=== PATIENT | female | born 1990 | race Caucasian/White ===

== ENCOUNTER → 2017-02-19 | Outpatient (CLI) | payer OTHER ==
[2017-02-19 12:13] LABS: ALT 456 U/L (9-52); AST 337 U/L (14-36)
[2017-02-19 16:22] LABS: Hepatitis B Surface Antibody Non-Reactive (Non-Reactive)
== END | disposition home or self-care (01) ==
LOC: LABWHC1 10:41
PROVIDERS: ATTEND Internal Medicine Infectious Disease
DX: B18.2 Chronic viral hepatitis C (principal)
CPT/HCPCS: 36415; 84450; 84460; 86706; 86708; 87340

== ENCOUNTER → 2017-05-21 | Outpatient (CLI) | payer OTHER ==
[2017-05-21 15:55] LABS: ALT 245 U/L (9-52); AST 200 U/L (14-36); Albumin 4.1 g/dL (3.5-5.0); Alkaline Phosphatase 123 U/L (38-126); Anion Gap 10 mmol/L; Blood Urea Nitrogen 10 mg/dL (7-17); Calcium 9.4 mg/dL (8.4-10.2); Carbon Dioxide 27 mmol/L (22-30); Chloride 105 mmol/L (98-107); Glucose 99 mg/dL (74-99); Potassium 4.1 mmol/L (3.5-5.1); Sodium 142 mmol/L (137-145); Total Bilirubin 0.6 mg/dL (0.2-1.3); Total Protein 7.1 g/dL (6.3-8.2)
== END | disposition home or self-care (01) ==
LOC: LABWHC1 15:20
PROVIDERS: ATTEND Internal Medicine Infectious Disease
DX: B18.2 Chronic viral hepatitis C (principal)
CPT/HCPCS: 36415; 80053

== ENCOUNTER → 2020-05-03 | Outpatient (CLI) | payer OTHER ==
[2020-05-03 18:31] LABS: African American GFR (CKD) 113.9 (60.0-200.0); Albumin 5.4 g/dL (3.80-4.90); Albumin/Globulin Ratio 2.08 (1.60-3.17); Anion Gap 10.9 mmol/L (4.00-12.00); BUN/Creat Ratio 22.5 Ratio (12.00-20.00); Calcium 10.3 mg/dL (8.7-10.3); Carbon Dioxide 26.1 mmol/L (21.6-31.8); Globulin 2.6 g/dL (1.6-3.3); Non-African American GFR(CKD) 98.2 (60.0-200.0); Potassium 5.3 mmol/L (3.5-5.5); Total Bilirubin 0.4 mg/dL (0.3-1.2)
== END | disposition home or self-care (01) ==
LOC: LABWHC1 09:24
PROVIDERS: ATTEND Family Medicine
DX: F11.20 Opioid dependence, uncomplicated (principal)
CPT/HCPCS: 36415; 80053

== ENCOUNTER 2022-01-19 11:21 | Inpatient (IN) | payer OTHER ==
--- NOTE | 2022-01-19 13:57 | XR ---
EXAMINATION TYPE: XR chest 2V DATE OF EXAM: 01/19/2022 1:49 PM COMPARISON: None TECHNIQUE: XR chest 2V Frontal and lateral views of the chest. CLINICAL INDICATION:Female, 31 years old with history of chest pain/sob; FINDINGS: Lungs/Pleura: There is no evidence of pleural effusion, focal consolidation, or pneumothorax. Pulmonary vascularity: Unremarkable. Heart/mediastinum: Cardiomediastinal silhouette is moderately enlarged. Postsurgical changes with va lvular prosthesis. Musculoskeletal: No acute osseous pathology. IMPRESSION: 1. No acute cardiopulmonary disease/process. 2. Moderate cardiomegaly.
--- NOTE | 2022-01-19 14:58 | ED ---
General Adult HPI - General Chief complaint: Chest Pain Stated complaint: SOB Time Seen by Provider: 01/19/22 14:35 Source: patient, police, RN notes reviewed, old records reviewed Mode of arrival: wheelchair Limitations: no limitations - History of Present Illness Initial comments: This is a 31-year-old female presents emergency room with a past medical history significant for heroin abuse and mitral valve surgery. Patient states she hasn't had any drugs for months because she's been in assisted. Patient states she got covert at the end of November and since then she has had shortness of breath. Patient also claims right-sided chest pain. Patient also was told that her skin looked a little yellowish she does have a history of hepatitis C so they sent to the emergency department. Patient denies any fever chills or cough. Patient denies any abdominal pain. Patient denies any vomiting or diarrhea. Patient denies any recent injury or trauma. Patient denies dysuria hematuria urinary frequency. Patient denies any swelling to the legs or calf tenderness - Related Data Home Medications Medication Instructions Recorded Confirmed Albuterol Nebulized [Ventolin 2.5 mg INHALATION RT-BID 01/19/22 01/19/22 Nebulized] Aspirin EC [Ecotrin Low Dose] 81 mg PO DAILY 01/19/22 01/19/22 Ensure 1 can PO DAILY 01/19/22 01/19/22 Ferrous Sulfate [Feosol] 325 mg PO HS 01/19/22 01/19/22 Metoprolol Tartrate [Lopressor] 12.5 mg PO BID 01/19/22 01/19/22 Multivit/Iron Sulf/Folic Acid 1 tab PO DAILY 01/19/22 01/19/22 [Multivitamin with Iron] Omeprazole 20 mg PO DAILY 01/19/22 01/19/22 hydroCHLOROthiazide [Hydrodiuril] 25 mg PO DAILY 01/19/22 01/19/22 Allergies Allergy/AdvReac Type Severity Reaction Status Date / Time metoprolol [From Lopressor] AdvReac "Doesn't Verified 01/19/22 17:17 feel well" Review of Systems ROS Statement: Those systems with pertinent positive or pertinent negative responses have been documented in the HPI. ROS Other: All systems not noted in ROS Statement are negative. Past Medical History Past Medical History: No Reported History Additional Past Medical History / Comment(s): Hep C, endocarditis History of Any Multi-Drug Resistant Organisms: None Reported Past Surgical History: Orthopedic Surgery Additional Past Surgical History / Comment(s): Mitral valve replaced 2019, Right hip sx r/t to MRSA Past Psychological History: No Psychological Hx Reported Smoking Status: Current every day smoker Past Alcohol Use History: None Reported Past Drug Use History: Heroin General Exam - General Exam Comments Initial Comments: GENERAL: Patient is well-developed and well-nourished. Patient is nontoxic and well- hydrated and is in mild distress. ENT: Neck is soft and supple. No significant lymphadenopathy is noted. Oropharynx is clear. Moist mucous membranes. Neck has full range of motion without eliciting any pain. EYES: The sclera were anicteric and conjunctiva were pink and moist. Extraocular movements were intact and pupils were equal round and reactive to light. Eyelids were unremarkable. PULMONARY: Unlabored respirations. Good breath sounds bilaterally. No audible rales rhonchi or wheezing was noted. CARDIOVASCULAR: There is a regular rate and rhythm without any murmurs gallops or rubs. ABDOMEN: Soft and nontender with normal bowel sounds. SKIN: Skin is clear with no lesions or rashes and otherwise unremarkable. NEUROLOGIC: Patient is alert and oriented x3. Cranial nerves II through XII are grossly intact. Motor and sensory are also intact. Normal speech, volume and content. Symmetrical smile. MUSCULOSKELETAL: Normal extremities with adequate strength and full range of motion. LYMPHATICS: No significant lymphadenopathy is noted PSYCHIATRIC: Normal psychiatric evaluation. Limitations: no limitations Course Vital Signs 01/19/22 01/19/22 01/19/22 11:51 14:54 17:01 Temperature 98.1 F Pulse Rate 106 H 101 H 98 Respiratory 18 16 16 Rate Blood Pressure 104/75 129/86 108/91 O2 Sat by Pulse 100 100 100 Oximetry 01/19/22 01/19/22 19:00 19:52 Temperature Pulse Rate 72 107 H Respiratory 16 20 Rate Blood Pressure 109/53 141/102 O2 Sat by Pulse 98 92 L Oximetry Procedures - Sepsis Sepsis Focused Exam #1 Time Sepsis Criteria Met: 20:20 Sepsis Focused Exam Date: 01/19/22 Sepsis Focused Exam Time: 20:55 Sepsis Focused Exam Complete: Yes Vital Signs & RN Notes Reviewed: Yes Capillary Refill: < 2 Seconds: Fingers Peripheral Pulses: Normal: Radial (R) Skin Color: Normal for Patient Respiratory Exam: normal lung sounds Cardiovascular Exam: regular rate (96 beats a minute) Medical Decision Making - Medical Decision Making EKG shows sinus tachycardia at 104 bpm MA interval 141 QRSs 85 QT interval 355 QTC is 4:15. Patient's EKG shows no ST segment elevation or depression. Chest x-ray showed a cardiomegaly. Patient had an elevated d-dimer so I decided to a CT angiogram and that showed a large probable empyema in the left lung. I started the patient on Zosyn and vancomycin. I spoke with Dr. Pineda he agreed to admit the patient admitted the patient wrote admitting orders continued antibiotics I consulted pulmonary and ID After patient was admitted before lactic acid come back and it is now elevated it was 8:20 PM when the results were recognized. Lactic acid was not originally ordered because infection was not expected. I consider the patient's septic I started a bolus of fluid antibiotic and oriented and started. Both liters of fluid started on patient. After the sclera isn't begun I went in and today with the patient did a focused physical exam - Lab Data Result diagrams: 01/19/22 15:57 01/19/22 15:16 Lab Results 01/19/22 01/19/22 01/19/22 Range/Units 15:16 15:16 15:57 WBC 11.4 H (3.8-10.6) k/uL RBC 5.02 (3.80-5.40) m/uL Hgb 12.9 (11.4-16.0) gm/dL Hct 41.3 (34.0-46.0) % MCV 82.3 (80.0-100.0) fL MCH 25.7 (25.0-35.0) pg MCHC 31.3 (31.0-37.0) g/dL RDW 17.4 H (11.5-15.5) % Plt Count 291 (150-450) k/uL MPV 9.3 Neutrophils % 58 % Lymphocytes % 29 % Monocytes % 9 % Eosinophils % 0 % Basophils % 1 % Neutrophils # 6.6 (1.3-7.7) k/uL Lymphocytes # 3.3 (1.0-4.8) k/uL Monocytes # 1.1 H (0-1.0) k/uL Eosinophils # 0.0 (0-0.7) k/uL Basophils # 0.1 (0-0.2) k/uL Hypochromasia Marked Poikilocytosis Slight Anisocytosis Slight PT (9.0-12.0) sec INR (<1.2) D-Dimer (<0.60) mg/L FEU Sodium 131 L (137-145) mmol/L Potassium 5.1 (3.5-5.1) mmol/L Chloride 92 L (98-107) mmol/L Carbon Dioxide 16 L (22-30) mmol/L Anion Gap 23 mmol/L BUN 19 H (7-17) mg/dL Creatinine 0.63 (0.52-1.04) mg/dL Est GFR (CKD-EPI)AfAm >90 (>60 ml/min/1.73 sqM) Est GFR (CKD-EPI)NonAf >90 (>60 ml/min/1.73 sqM) Glucose 83 (74-99) mg/dL Calcium 9.2 (8.4-10.2) mg/dL Magnesium 2.1 (1.6-2.3) mg/dL Total Bilirubin 3.0 H (0.2-1.3) mg/dL AST 360 H (14-36) U/L ALT 183 H (4-34) U/L Alkaline Phosphatase 105 (38-126) U/L Troponin I <0.012 (0.000-0.034) ng/mL Total Protein 7.8 (6.3-8.2) g/dL Albumin 4.2 (3.5-5.0) g/dL 01/19/22 Range/Units 17:00 WBC (3.8-10.6) k/uL RBC (3.80-5.40) m/uL Hgb (11.4-16.0) gm/dL Hct (34.0-46.0) % MCV (80.0-100.0) fL MCH (25.0-35.0) pg MCHC (31.0-37.0) g/dL RDW (11.5-15.5) % Plt Count (150-450) k/uL MPV Neutrophils % % Lymphocytes % % Monocytes % % Eosinophils % % Basophils % % Neutrophils # (1.3-7.7) k/uL Lymphocytes # (1.0-4.8) k/uL Monocytes # (0-1.0) k/uL Eosinophils # (0-0.7) k/uL Basophils # (0-0.2) k/uL Hypochromasia Poikilocytosis Anisocytosis PT 17.0 H (9.0-12.0) sec INR 1.7 H (<1.2) D-Dimer 8.16 H (<0.60) mg/L FEU Sodium (137-145) mmol/L Potassium (3.5-5.1) mmol/L Chloride (98-107) mmol/L Carbon Dioxide (22-30) mmol/L Anion Gap mmol/L BUN (7-17) mg/dL Creatinine (0.52-1.04) mg/dL Est GFR (CKD-EPI)AfAm (>60 ml/min/1.73 sqM) Est GFR (CKD-EPI)NonAf (>60 ml/min/1.73 sqM) Glucose (74-99) mg/dL Calcium (8.4-10.2) mg/dL Magnesium (1.6-2.3) mg/dL Total Bilirubin (0.2-1.3) mg/dL AST (14-36) U/L ALT (4-34) U/L Alkaline Phosphatase (38-126) U/L Troponin I (0.000-0.034) ng/mL Total Protein (6.3-8.2) g/dL Albumin (3.5-5.0) g/dL Critical Care Time Critical Care Time: Yes Total Critical Care Time: 35 Disposition Clinical Impression: Empyema, Sepsis Disposition: ADMITTED IP TO THIS HOSP Time of Disposition: 18:58
[2022-01-19 15:55] LABS: African American GFR (CKD) >90 (>60 ml/min/1.73 sqM); Anion Gap 23 mmol/L; Blood Urea Nitrogen 19 mg/dL (7-17); Calcium 9.2 mg/dL (8.4-10.2); Carbon Dioxide 16 mmol/L (22-30); Chloride 92 mmol/L (98-107); Glucose 83 mg/dL (74-99); Non-African American GFR(CKD) >90 (>60 ml/min/1.73 sqM); Sodium 131 mmol/L (137-145)
[2022-01-19 16:27] LABS: Anisocytosis Slight; Basophils # (A) 0.1 k/uL (0-0.2); Basophils % (A) 1 %; Eosinophils % (A) 0 %; HCT 41.3 % (34.0-46.0); HGB 12.9 gm/dL (11.4-16.0); Hypochromasia Marked; Lymphocytes # (A) 3.3 k/uL (1.0-4.8); Lymphocytes % (A) 29 %; MCH 25.7 pg (25.0-35.0); MCHC 31.3 g/dL (31.0-37.0); MCV 82.3 fL (80.0-100.0); Mean Platelet Volume 9.3; Monocytes # (A) 1.1 k/uL (0-1.0); Monocytes % (A) 9 %; Neutrophils # (A) 6.6 k/uL (1.3-7.7); Neutrophils % (A) 58 %; Platelet Count 291 k/uL (150-450); Poikilocytosis Slight; RBC 5.02 m/uL (3.80-5.40); RDW 17.4 % (11.5-15.5); WBC 11.4 k/uL (3.8-10.6)
[2022-01-19 16:56] LABS: AST 360 U/L (14-36); Albumin 4.2 g/dL (3.5-5.0); Alkaline Phosphatase 105 U/L (38-126); Magnesium 2.1 mg/dL (1.6-2.3); Potassium 5.1 mmol/L (3.5-5.1); Total Protein 7.8 g/dL (6.3-8.2)
[2022-01-19 17:26] LABS: INR 1.7 (<1.2)
[2022-01-19 17:44] LABS: ALT 183 U/L (4-34)
--- NOTE | 2022-01-19 18:40 | CT ---
EXAMINATION TYPE: CT chest angio for PE CT DLP: 258.2 mGycm, Automated exposure control for dose reduction was used. DATE OF EXAM: 01/19/2022 6:26 PM COMPARISON: Chest radiograph same day CLINICAL INDICATION:Female, 31 years old with history of Difficulty breathing, high d-dimer; cough, S OB, elevated d-dimer TECHNIQUE/CONTRAST: CTA scan of the thorax is performed with IV Contrast, patient injected with 80cc mL of Isovue 370, pu lmonary embolism protocol. MIP images are created and reviewed. FINDINGS: Motion limits evaluation. Pulmonary Artery: There is no evidence for a filling defect within the pulmonary vasculature to sugge st acute pulmonary embolism. The pulmonary artery is of normal size. Lungs/Pleura: No evidence of focal consolidation or pneumothorax. There is a large fluid collection w ithin the anterior medial left pleural space with associated atelectasis. There is suggestion of enha ncing pleura. Airway: Large airways are patent. Heart: As mass effect on the heart from large left frontal pleural fluid collection with associated r ightward shift. Vasculature: No evidence of aortic aneurysm. Mediastinum: No gross evidence of adenopathy. Musculoskeletal: No acute osseous abnormalities Soft Tissues: Abandoned leads are seen within the soft tissues connected to the heart. Lower neck: No significant findings. Upper Abdomen: No significant findings. IMPRESSION: 1. No evidence of pulmonary embolism. 2. Left anterior medial fluid collection favored to be within the pleural space with enhancing pleura concerning for empyema. Correlate with clinical history. 3. Rightward shift of the mediastinum/heart from a forementioned left-sided pleural fluid collection favored to represent empyema.
[2022-01-19] MEDS ORDERED: PIPERACILLIN-TAZOBACTAM 3.375 GM in SODIUM CHLORIDE 0.9% 100 ML IVPB STA (18:55)
[2022-01-19] MEDS ORDERED: VANCOMYCIN IV PER PHARMACY 1 EACH MISC MISCELLANE PRN (18:56)
[2022-01-19] MEDS ORDERED: VANCOMYCIN 1,250 MG in SODIUM CHLORIDE 0.9% 250 ML IVPB STA (18:59)
[2022-01-19] MEDS ORDERED: SODIUM CHLORIDE 0.9% 2,000 ML IV ONE (20:20)
[2022-01-19] MEDS ORDERED: METOPROLOL TARTRATE 12.5 MG TAB PO SCH (21:00)
[2022-01-19] MEDS: FERROUS SULFATE 325 MG TAB PO SCH (21:06)
[2022-01-19] MEDS ORDERED: BENZONATATE 100 MG CAP PO PRN (22:06)
[2022-01-19] MEDS: BENZONATATE 100 MG CAP PO SCH (22:43)
[2022-01-20] MEDS: guaiFENesin-DM 100-10MG/5ML 10 ML CUP PO PRN ×2 (01:53→20:46)
[2022-01-20] MEDS: VANCOMYCIN 1,250 MG in SODIUM CHLORIDE 0.9% 250 ML IVPB SCH ×3 (03:50→20:23)
[2022-01-20] MEDS ORDERED: PIPERACILLIN-TAZOBACTAM 3.375 GM in SODIUM CHLORIDE 0.9% 100 ML IVPB SCH (04:00)
[2022-01-20] MEDS: KETOROLAC 15 MG/ML 1 ML VIAL IVP SCH ×3 (06:00→18:08)
[2022-01-20] MEDS: SODIUM CHLORIDE 0.9% 1,000 ML IV SCH ×3 (06:00→22:13)
--- NOTE | 2022-01-20 06:20 | HP ---
HISTORY AND PHYSICAL HISTORY OF PRESENT ILLNESS: A 31-year-old female, history of heroin abuse, mitral valve surgery. She has not had any drugs for months before she has been in longterm. She had COVID down in November and since then she has had increased shortness of breath, right-sided chest pain. Skin looks to be yellow. She has a history of hepatitis C. LFTs are high. Bilirubin is 3.0. Denies any nausea, or vomiting. . No dysuria, frequency, urgency, or hesitancy. MEDICATIONS: 1. Ferrous sulfate 325 daily. 2. Lopressor 12.5 b.i.d. 3. Multivitamin daily. 4. Omeprazole 20 mg daily. 5. Aspirin 81 mg daily. ALLERGIES: Metoprolol. REVIEW OF SYSTEMS: A 14-point review of systems is negative except for mentioned in HPI. PAST MEDICAL HISTORY: Endocarditis, Hepatitis C. PAST SURGICAL HISTORY: Orthopedic surgery, mitral valve replacement. SOCIAL HISTORY: Heroin. Current everyday smoker. PHYSICAL EXAMINATION: VITAL SIGNS: Temperature 98.1, pulse is 98 to 106, blood pressure is 104 to 129 over 70s to 90s, O2 is 100%. GENERAL: Well developed, well nourished, nontoxic, well hydrated, mild distress. CARDIOVASCULAR: S1, S2. No murmurs. LUNGS: Decreased breath sounds. HEART: Regular rate and rhythm. ABDOMEN: Soft, nontender. SKIN: Warm, dry, intact. NEUROLOGIC: Cranial nerves intact. MUSCULOSKELETAL: significant adenopathy. PSYCH: Fair mood and affect. ASSESSMENT: EKG shows sinus tachycardia. Chest x-ray, cardiomegaly, elevated D-dimer. CT of the chest shows large probably empyema in the left lung. Pulmonary and Infectious Disease consult. Lactic acidosis elevated at 5.9. Fluids. Broad-spectrum antibiotics with vancomycin and Zosyn. Prognosis guarded. MMODL / IJN: [id number] /
[2022-01-20] MEDS: PANTOPRAZOLE 40 MG TABLET PO SCH (07:19)
[2022-01-20] MEDS: BENZONATATE 100 MG CAP PO SCH ×3 (08:48→22:10)
[2022-01-20] MEDS: MULTIVITAMINS, THERA 1 EACH TAB PO SCH (08:48)
[2022-01-20] MEDS: ASPIRIN 81 MG PO SCH (08:48)
[2022-01-20] MEDS: hydroCHLOROthiazide 25 MG TAB PO SCH (08:48)
[2022-01-20 08:54] LABS: Basophils # (A) 0.05 X 10*3/uL (0.00-0.10); Basophils % (A) 0.5 %; Eosinophils # (A) 0.02 X 10*3/uL (0.04-0.35); Eosinophils % (A) 0.2 %; HCT 42.1 % (37.2-46.3); HGB 12.6 g/dL (12.0-15.0); Immature Grans, Automated 0.3 %; Lymphocytes # (A) 3.03 X 10*3/uL (0.90-5.00); Lymphocytes % (A) 33.3 %; MCH 24.8 pg (27.0-32.0); MCHC 29.9 g/dL (32.0-37.0); MCV 82.9 fL (80.0-97.0); Mean Platelet Volume 11.4 fL (9.5-12.2); Monocytes # (A) 0.77 X 10*3/uL (0.20-1.00); Monocytes % (A) 8.5 %; NRBC Per 100 WBC 0 /100 WBCS (0.0-0.0); Neutrophils % (A) 57.2 %; Platelet Count 334 X 10*3/uL (140-440); RBC 5.08 X 10*6/uL (4.10-5.20)
[2022-01-20] MEDS ORDERED: BENZONATATE 100 MG CAP PO SCH (09:00)
[2022-01-20] MEDS ORDERED: NON FORMULARY DRUG (Ensure 1 CAN Ml) PO SCH (09:00)
--- NOTE | 2022-01-20 09:31 | P.CON ---
Consult Note - . Consult date: 01/20/22 Assessment/Plan:: case reviewed. fluid collection displacing the heart and appears contiguous with superior pericardial recess. most likely pericardial fluid or cyst. recomend echo and cardiology or cardiothoracic consult. discussed y telephone with referring doctor.
[2022-01-20] MEDS: ALBUTEROL NEBULIZED 2.5 MG/3 ML INHALATION SCH ×2 (09:33→20:28)
--- NOTE | 2022-01-20 09:50 | US ---
EXAMINATION TYPE: US liver DATE OF EXAM: 01/20/2022 COMPARISON: NONE CLINICAL HISTORY: elevated lft. TECHNIQUE: Multiple sonographic images of the right upper quadrant are obtained. FINDINGS: EXAM MEASUREMENTS: Liver Length: 13.2 cm Gallbladder Wall: 0.2 cm CBD: 0.4 cm Right Kidney: 10.3 x 3.8 x 4.7 cm PHARMACY INTERN NOTES: Pancreas: visualized portions wnl Liver: wnl Gallbladder: full of shadowing stones, gallbladder wall within normal limits. No pericholecystic flu id. Evidence for sonographic Forbes's sign: Yes CBD: wnl Right Kidney: No hydronephrosis or masses seen Small amount of fluid seen around liver. IMPRESSION: Cholelithiasis with no definitive evidence for gallbladder wall thickening or pericholecystic fluid. Given positive sonographic Forbes sign, correlate for acute cholecystitis. Consider confirmation with HIDA scan.
--- NOTE | 2022-01-20 10:24 | P.GSCN ---
History of Present Illness Consult date: 01/20/22 Reason for Consult: Empyema Requesting physician: Ramona Serrano History of present illness: This is a 31-year-old female patient who does not follow on an outpatient basis with a primary care physician, currently she resides in [facility]. 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 She presented to [facility] with complaints of chest pain, shortness of breath, nonproductive cough, no fever but positive chills over a several day period. Chest x-ray demonstrated cardiomegaly. CT of the chest demonstrated no evidence of pulmonary embolism, however there was a left anterior medial fluid collection favored to be within the pleural space with enhancing pleura concerning for empyema with a rightward shift of the mediastinum/heart. Lab work revealed WBC 11.4, d-dimer 8.16, INR 1.7, creatinine 0.63, lactic acid 5.8, AST 360, ALT 183, and troponin was negative. The patient was started on IV Zosyn and vancomycin and admitted with consultation placed to pulmonology and infectious disease. Consultation was placed by pulmonology to interventional radiology to place a pigtail catheter for lytic instillation, cardiothoracic surgery was then con sulted for management of empyema. Of note there is concern by interventional radiology that there is fluid within the pericardium, STAT echo ordered, pending, and consultation was placed to cardiology. Review of Systems Review of systems was completed and was negative except as noted - Constitutional Reports chills - Cardiovascular Reports chest pain, Reports shortness of breath - Respiratory Reports cough Past Medical History Additional Past Medical History / Comment(s): Hep C, endocarditis History of Any Multi-Drug Resistant Organisms: MRSA Past Surgical History: Orthopedic Surgery Additional Past Surgical History / Comment(s): Mitral valve replaced 01/2020 at [facility], Right hip sx r/t to MRSA Past Psychological History: No Psychological Hx Reported Smoking Status: Current every day smoker Past Alcohol Use History: None Reported Past Drug Use History: Heroin - Past Family History Mother Family Medical History: No Reported History Father Family Medical History: No Reported History Medications and Allergies Home Medications Medication Instructions Recorded Confirmed Type Albuterol Nebulized [Ventolin 2.5 mg INHALATION RT-BID 01/19/22 01/19/22 History Nebulized] Aspirin EC [Ecotrin Low Dose] 81 mg PO DAILY 01/19/22 01/19/22 History Ensure 1 can PO DAILY 01/19/22 01/19/22 History Ferrous Sulfate [Feosol] 325 mg PO HS 01/19/22 01/19/22 History Metoprolol Tartrate [Lopressor] 12.5 mg PO BID 01/19/22 01/19/22 History Multivit/Iron Sulf/Folic Acid 1 tab PO DAILY 01/19/22 01/19/22 History [Multivitamin with Iron] Omeprazole 20 mg PO DAILY 01/19/22 01/19/22 History hydroCHLOROthiazide [Hydrodiuril] 25 mg PO DAILY 01/19/22 01/19/22 History Allergies Allergy/AdvReac Type Severity Reaction Status Date / Time metoprolol [From Lopressor] AdvReac "Doesn't Verified 01/19/22 17:17 feel well" Surgical - Exam Vital Signs Temp Pulse Resp BP Pulse Ox 98.1 F 106 H 18 104/75 100 01/19/22 11:51 01/19/22 11:51 01/19/22 11:51 01/19/22 11:51 01/19/22 11:51 CONSTITUTIONAL: Awake and alert, appears comfortable, cooperative, well- developed, well-nourished, no pain, no acute distress EYES: Pupils equal, round, reactive to light, normal ocular movement ENT: Moist mucous membranes without oral lesions present NECK: No masses, no bruits, trachea midline RESPIRATORY: Lungs sounds diminished bilaterally. Respirations even, nonlabored. Currently on room air with oxygen saturation 97%. Strong nonproductive cough. CARDIOVASCULAR: S1, S2 present. Tachycardic but regular rate and rhythm, sinus tach on telemetry. Palpable peripheral pulses bilaterally. No edema present. No calf pain or tenderness noted. GASTROINTESTINAL: Abdomen soft, nontender, nondistended without masses or organomegaly noted. There is no rebound or guarding present. Active bowel sounds present 4 quadrants. GENITOURINARY: Deferred INTEGUMENTARY: Skin is warm and dry NEUROLOGIC: Cranial nerves II through XII intact, normal coordination, no obvious motor or sensory deficits, speech is normal MUSKULOSKELETAL: Able to move all extremities, strength equal bilaterally, normal posture PSYCHIATRIC: Alert and oriented to person place and time, appropriate affect Results - Labs 01/20/22 03:22 01/20/22 03:22 Abnormal Lab Results - Last 24 Hours (Table) 01/19/22 01/19/22 01/19/22 Range/Units 15:16 15:57 17:00 WBC 11.4 H (3.8-10.6) k/uL MCH (27.0-32.0) pg MCHC (32.0-37.0) g/dL RDW 17.4 H (11.5-15.5) % Monocytes # 1.1 H (0-1.0) k/uL Eosinophils # (0.04-0.35) X 10*3/uL PT 17.0 H (9.0-12.0) sec INR 1.7 H (<1.2) D-Dimer 8.16 H (<0.60) mg/L FEU Sodium 131 L (137-145) mmol/L Chloride 92 L (98-107) mmol/L Carbon Dioxide 16 L (22-30) mmol/L BUN 19 H (7-17) mg/dL Plasma Lactic Acid Binu (0.7-2.0) mmol/L Total Bilirubin 3.0 H (0.2-1.3) mg/dL AST 360 H (14-36) U/L ALT 183 H (4-34) U/L 01/19/22 01/19/22 01/20/22 Range/Units 19:36 22:51 03:22 WBC (3.8-10.6) k/uL MCH 24.8 L (27.0-32.0) pg MCHC 29.9 L (32.0-37.0) g/dL RDW 18.0 H (11.5-15.5) % Monocytes # (0-1.0) k/uL Eosinophils # 0.02 L (0.04-0.35) X 10*3/uL PT (9.0-12.0) sec INR (<1.2) D-Dimer (<0.60) mg/L FEU Sodium (137-145) mmol/L Chloride (98-107) mmol/L Carbon Dioxide (22-30) mmol/L BUN (7-17) mg/dL Plasma Lactic Acid Binu 5.9 H* 5.8 H* (0.7-2.0) mmol/L Total Bilirubin (0.2-1.3) mg/dL AST (14-36) U/L ALT (4-34) U/L 01/20/22 01/20/22 Range/Units 03:22 07:44 WBC (3.8-10.6) k/uL MCH (27.0-32.0) pg MCHC (32.0-37.0) g/dL RDW (11.5-15.5) % Monocytes # (0-1.0) k/uL Eosinophils # (0.04-0.35) X 10*3/uL PT (9.0-12.0) sec INR (<1.2) D-Dimer (<0.60) mg/L FEU Sodium (137-145) mmol/L Chloride (98-107) mmol/L Carbon Dioxide (22-30) mmol/L BUN (7-17) mg/dL Plasma Lactic Acid Binu 5.1 H* 4.9 H* (0.7-2.0) mmol/L Total Bilirubin (0.2-1.3) mg/dL AST (14-36) U/L ALT (4-34) U/L Diabetes panel 01/19/22 Range/Units 15:16 Sodium 131 L (137-145) mmol/L Potassium 5.1 (3.5-5.1) mmol/L Chloride 92 L (98-107) mmol/L Carbon Dioxide 16 L (22-30) mmol/L BUN 19 H (7-17) mg/dL Creatinine 0.63 (0.52-1.04) mg/dL Glucose 83 (74-99) mg/dL Calcium 9.2 (8.4-10.2) mg/dL AST 360 H (14-36) U/L ALT 183 H (4-34) U/L Alkaline Phosphatase 105 (38-126) U/L Total Protein 7.8 (6.3-8.2) g/dL Albumin 4.2 (3.5-5.0) g/dL Calcium panel 01/19/22 Range/Units 15:16 Calcium 9.2 (8.4-10.2) mg/dL Albumin 4.2 (3.5-5.0) g/dL Pituitary panel 01/19/22 Range/Units 15:16 Sodium 131 L (137-145) mmol/L Potassium 5.1 (3.5-5.1) mmol/L Chloride 92 L (98-107) mmol/L Carbon Dioxide 16 L (22-30) mmol/L BUN 19 H (7-17) mg/dL Creatinine 0.63 (0.52-1.04) mg/dL Glucose 83 (74-99) mg/dL Calcium 9.2 (8.4-10.2) mg/dL Adrenal panel 01/19/22 Range/Units 15:16 Sodium 131 L (137-145) mmol/L Potassium 5.1 (3.5-5.1) mmol/L Chloride 92 L (98-107) mmol/L Carbon Dioxide 16 L (22-30) mmol/L BUN 19 H (7-17) mg/dL Creatinine 0.63 (0.52-1.04) mg/dL Glucose 83 (74-99) mg/dL Calcium 9.2 (8.4-10.2) mg/dL Total Bilirubin 3.0 H (0.2-1.3) mg/dL AST 360 H (14-36) U/L ALT 183 H (4-34) U/L Alkaline Phosphatase 105 (38-126) U/L Total Protein 7.8 (6.3-8.2) g/dL Albumin 4.2 (3.5-5.0) g/dL - Imaging Chest x-ray: report reviewed, image reviewed CT scan - chest: report reviewed, image reviewed EKG: image reviewed Assessment and Plan Assessment: 1. Left-sided chest fluid collection, possible empyema versus pericardial effusion 2. Shortness of breath, chest pain, nonproductive cough, secondary to above 3. Leukocytosis, lactic acidosis present on admission 4. Elevated liver enzymes present on admission 5. History of bacterial endocarditis with mitral valve surgery in January 2020 at [facility] 6. IV heroin abuse which she stopped only prior to [facility] term 7. History of hepatitis C 8. Current tobacco dependence 9. History of right hip surgery secondary to MRSA infection 10. Covid infection in November 2021 Plan: The patient was seen and examined in the emergency room with guard at the bedside. Chart/diagnostics were reviewed. The case was discussed in detail with Dr. Verde from cardiothoracic surgery. Initially our plans were for placement of pigtail catheter to instill lytic therapy along with IV antibiotics for empyema. Given the possibility of fluid being in the pericardial sac agree with stat echo. If patient does have pericardial effusion or cyst our recommendations would be for transfer back to [facility] for surgical intervention, this was discussed with pulmonology. Patient was counseled regarding smoking cessation as well as cessation of IV heroin. Medical record request was sent to [facility] regarding surgical care from January 2020. Continue supportive therapy. Medical management of other comorbidities per primary care, pulmonology, cardiology, infectious disease. More recommendations to follow pending echocardiogram findings. Thank you Dr. Serrano for this consultation. Further recommendations pending. I have personally seen and examined the patient, performed the documentation and the assessment and plan as written. Number of minutes spent on the visit: 30. TENNILLE AscencioC Attending Addendum: The patient was seen and evaluated with Ball Truing Machine Operator above. Agree with her assessment and plan. This is a 31 year-old F with multiple medical and social issues who had cardiac surgery at an OSH on 2019 who presents with a left sided pleural effusion near the pericardium. Unclear etiology. Will pursue IR d rainage and possible tPA. In the meantime she needs broad spectrum abx and resuscitation. I spent 30 minutes evaluating this patient and discussing the plan with her.
--- NOTE | 2022-01-20 10:51 | P.CNPUL ---
History of Present Illness Consult date: 01/20/22 Requesting physician: Saroj Pineda Reason for consult: chest pain, abnormal CXR/CT Chief complaint: Right-sided chest pain History of present illness: This is a pleasant 31-year-old female patient with a known history of hepatitis C, IV drug abuse with heroin last used 11/03/2021, endocarditis, mitral valve replacement in 2019 at [facility], MRSA and a right hip. Chest has chronic and ongoing tobacco dependence. She also states she had a CoVID infection in November and has been short of breath since that time. She is currently incarcerated. She was brought over from the [facility] with complaints of right-sided chest pain, shortness of breath, cough and congestion. Chest x-ray revealed cardiomediastinal silhouette moderately enlarged. Postsurgical changes with valvular prosthesis. No evidence of pleural effusion. No focal consolidation. No pneumothorax. CT angiogram ruled out pulmonary embolism however there is noted large fluid collection within the anterior medial left pleural space with associated atelectasis. There is suggestion of enhancing pleura. No focal consolidation or pneumothorax. However, the CAT scan was further reviewed and is now being reported as a large fluid collection most likely in the pericardium. Echocardiogram is pending. EKG reveals normal sinus rhythm with nonspecific ST and T wave abnormalities. Ultrasound of the liver revealed cholelithiasis with no definitive evidence for gallbladder wall thickening or. Cholestatic fluid. Liver was within normal limits. White count 9.1. Hemoglobin 12.6. Platelets 334. INR 1.7. D-dimer 8.16. Sodium 131. Potassium 5.1. Bicarb 16. BUN 19. Creatinine 0.63. Lactic acid 5.8, 4.9. A ST 360. ALT 183. Troponin negative 1. The patient is seen in consultation in the emergency department. She is awake and alert in no acute distress. She is maintaining good O2 saturations in the mid 90s on room air. She's been afebrile. Slightly tachycardic. Hemodynamically stable. She is still having issues with some right-sided chest discomfort. Some shortness of breath. Nonproductive cough. She was initiated on vancomycin and Zosyn, 0.9 normal saline at 100. Review of Systems REVIEW OF SYSTEMS: CONSTITUTIONAL: Denies any recent significant weight loss or weight gain. EYES: Denies change in vision. EARS, NOSE, MOUTH, THROAT: Denies headaches, denies sore throat. CARDIOVASCULAR: Positive for chest pain, palpitations no syncopal episodes. RESPIRATORY: Positive for shortness of breath, cough, congestion no hemoptysis. GASTROINTESTINAL: Denies change in appetite, denies abdominal pain GENITOURINARY: Denies hematuria, denies infections. MUSKULOSKELETAL: Denies pain, denies swelling. INTEGUMENTARY: Denies rash, denies eczema. NEUROLOGICAL: Denies recent memory loss, no recent seizure activity. PSYCHIATRIC: Denies anxiety, denies depression. HEMATOLOGIC/LYMPHATIC: Denies anemia, denies enlarged lymph nodes. Past Medical History Past Medical History: No Reported History Additional Past Medical History / Comment(s): Hep C, endocarditis History of Any Multi-Drug Resistant Organisms: MRSA Past Surgical History: Orthopedic Surgery Additional Past Surgical History / Comment(s): Mitral valve replaced 01/2020 at [facility], Right hip sx r/t to MRSA Past Psychological History: No Psychological Hx Reported Smoking Status: Current every day smoker Past Alcohol Use History: None Reported Past Drug Use History: Heroin - Past Family History Mother Family Medical History: No Reported History Father Family Medical History: No Reported History Medications and Allergies Home Medications Medication Instructions Recorded Confirmed Type Albuterol Nebulized [Ventolin 2.5 mg INHALATION RT-BID 01/19/22 01/19/22 History Nebulized] Aspirin EC [Ecotrin Low Dose] 81 mg PO DAILY 01/19/22 01/19/22 History Ensure 1 can PO DAILY 01/19/22 01/19/22 History Ferrous Sulfate [Feosol] 325 mg PO HS 01/19/22 01/19/22 History Metoprolol Tartrate [Lopressor] 12.5 mg PO BID 01/19/22 01/19/22 History Multivit/Iron Sulf/Folic Acid 1 tab PO DAILY 01/19/22 01/19/22 History [Multivitamin with Iron] Omeprazole 20 mg PO DAILY 01/19/22 01/19/22 History hydroCHLOROthiazide [Hydrodiuril] 25 mg PO DAILY 01/19/22 01/19/22 History Allergies Allergy/AdvReac Type Severity Reaction Status Date / Time metoprolol [From Lopressor] AdvReac "Doesn't Verified 01/19/22 17:17 feel well" Physical Exam Vitals: Vital Signs Temp Pulse Resp BP Pulse Ox 01/20/22 09:42 104 H 01/20/22 09:36 107 H 01/20/22 07:16 112 H 18 114/87 97 01/20/22 06:05 97.7 F 102/86 01/20/22 00:42 110 H 20 109/86 97 01/19/22 20:56 100 18 105/86 97 01/19/22 19:52 107 H 20 141/102 92 L 01/19/22 19:00 72 16 109/53 98 01/19/22 17:01 98 16 108/91 100 01/19/22 14:54 101 H 16 129/86 100 01/19/22 11:51 98.1 F 106 H 18 104/75 100 GENERAL EXAM: Alert, pleasant 31-year-old female, on room air, fairly comfortable in no apparent distress. HEAD: Normocephalic. EYES: Normal reaction of pupils, equal size. NOSE: Clear with pink turbinates. THROAT: No erythema or exudates. NECK: No masses, no JVD. CHEST: No chest wall deformity. LUNGS: Equal air entry with no crackles, wheeze, rhonchi or dullness. CVS: S1 and S2 normal with no audible murmur, regular rhythm. ABDOMEN: No hepatosplenomegaly, normal bowel sounds, no guarding or rigidity. SPINE: No scoliosis or deformity SKIN: No rashes CENTRAL NERVOUS SYSTEM: No focal deficits, tone is normal in all 4 extremities. EXTREMITIES: There is no peripheral edema. No clubbing, no cyanosis. Peripheral pulses are intact. Results - Laboratory Findings CBC and BMP: 01/20/22 03:22 01/19/22 15:16 PT/INR, D-dimer PT 17.0 sec (9.0-12.0) H 01/19/22 17:00 INR 1.7 (<1.2) H 01/19/22 17:00 D-Dimer 8.16 mg/L FEU (<0.60) H 01/19/22 17:00 Abnormal lab findings: Abnormal Labs 01/19/22 01/19/22 01/19/22 15:16 15:57 17:00 WBC 11.4 H MCH MCHC RDW 17.4 H Monocytes # 1.1 H Eosinophils # PT 17.0 H INR 1.7 H D-Dimer 8.16 H Sodium 131 L Chloride 92 L Carbon Dioxide 16 L BUN 19 H Plasma Lactic Acid Binu Total Bilirubin 3.0 H AST 360 H ALT 183 H 01/19/22 01/19/22 01/20/22 19:36 22:51 03:22 WBC MCH 24.8 L MCHC 29.9 L RDW 18.0 H Monocytes # Eosinophils # 0.02 L PT INR D-Dimer Sodium Chloride Carbon Dioxide BUN Plasma Lactic Acid Binu 5.9 H* 5.8 H* Total Bilirubin AST ALT 01/20/22 01/20/22 03:22 07:44 WBC MCH MCHC RDW Monocytes # Eosinophils # PT INR D-Dimer Sodium Chloride Carbon Dioxide BUN Plasma Lactic Acid Binu 5.1 H* 4.9 H* Total Bilirubin AST ALT - Diagnostic Findings Chest x-ray: image reviewed CT scan - chest: image reviewed Assessment and Plan Assessment: Chest pain with shortness of breath secondary to a large fluid collection displacing the heart and appears contiguous with superior pericardial recess. Most likely pericardial fluid or cyst. Echocardiogram pending History of heroin use, last used 11/03/2021 Currently incarcerated secondary to above, restraints in place, deputy sheriff court services at the bedside History of COVID-19 infection in November 2021 History of bacterial endocarditis with mitral valve surgery in January 2020 at [facility], maintained on baby aspirin History of hepatitis C Mild transaminitis, ultrasound revealed evidence of cholecystitis without gallbladder wall thickening, liver within normal limits History of chronic tobacco dependence History of MRSA in the right hip History of hypertension History of acid reflux disease Plan: The patient was seen and evaluated Chest x-ray, CAT scan and labs reviewed Cardiothoracic surgery consulted Interventional radiology consulted Stat echocardiogram pending Cardiology consult Continue vancomycin and Zosyn Check a pro-calcitonin May transfer to [facility] if cardiac intervention required I have personally seen and examined the patient, performed the documentation and the assessment and plan as written. Number of minutes spent on the visit: 20.
[2022-01-20 12:42] LABS: African American GFR (CKD) 112.3 (60.0-200.0); Albumin 3.5 g/dL (3.8-4.9); Albumin/Globulin Ratio 1.09 (1.60-3.17); Anion Gap 18.6 mmol/L (10.00-18.00); BUN/Creat Ratio 20.38 Ratio (12.00-20.00); Blood Urea Nitrogen 16.3 mg/dL (9.0-27.0); Calcium 8.6 mg/dL (8.7-10.3); Carbon Dioxide 16.4 mmol/L (20.0-27.5); Globulin 3.2 g/dL (1.6-3.3); Non-African American GFR(CKD) 96.9 (60.0-200.0); Potassium 4.2 mmol/L (3.5-5.5); Total Bilirubin 1.5 mg/dL (0.30-1.20); Total Protein 6.7 g/dL (6.2-8.2)
--- NOTE | 2022-01-20 12:52 | CA ---
Transthoracic Echo Report Name: Bernice Mueller Age: 31 Gender: F : 1990 Exam Date: 01/20/2022 10:41 Exam Location: [facility] Ht (in): 64 Wt (lb): 141 Ordering Physician: Ramona Serrano Attending/Referring Phys: Rescue Boat Operator Constance Nesbitt RDCS Procedure CPT: Indications: pericardial effusion Cardiac Hx: Technical Quality: Technically difficult study Contrast 1: Total Dose (mL): Contrast 2: Total Dose (mL): MEASUREMENTS (Male / Female) Normal Values 2D ECHO LV Diastolic Diameter PLAX 3.7 cm 4.2 - 5.9 / 3.9 - 5.3 cm LV Systolic Diameter PLAX 2.2 cm IVS Diastolic Thickness 1.0 cm 0.6 - 1.0 / 0.6 - 0.9 cm LVPW Diastolic Thickness 1.0 cm 0.6 - 1.0 / 0.6 - 0.9 cm LV Relative Wall Thickness 0.5 RV Internal Dim ED PLAX 2.3 cm LA Systolic Diameter LX 3.2 cm 3.0 - 4.0 / 2.7 - 3.8 cm M-MODE Aortic Root Diameter MM 3.0 cm MV E Point Septal Separation 0.7 cm AV Cusp Separation MM 1.8 cm DOPPLER AV Peak Velocity 80.1 cm/s AV Peak Gradient 2.6 mmHg MV Area PHT 6.5 cm??? Mitral E Point Velocity 64.8 cm/s Mitral A Point Velocity 45.8 cm/s Mitral E to A Ratio 1.4 MV Deceleration Time 116.4 ms MV E' Velocity 5.5 cm/s Mitral E to MV E' Ratio 11.8 TR Peak Velocity 243.1 cm/s TR Peak Gradient 23.6 mmHg Right Ventricular Systolic Press 38.6 mmHg FINDINGS Left Ventricle Left ventricular ejection fraction is estimated at 55-60 %. Left ventricular wall thickness normal. Small left ventricular cavity. Right Ventricle Normal right ventricular size and function. Mild pulmonary hypertension. Right Atrium Normal right atrial size. Left Atrium Normal left atrial size. No evidence for an atrial septal defect. Mitral Valve Mitral valve thickened. No mitral stenosis, regurgitation or prolapse. Aortic Valve Trileaflet aortic valve. No aortic valve stenosis or regurgitation. Tricuspid Valve Mild tricuspid regurgitation. Pulmonic Valve Pulmonic valve not well visualized. Pericardium Large pleural effusion with fibrin material Aorta Normal size aortic root and proximal ascending aorta. CONCLUSIONS Left ventricular ejection fraction 55-60% RVSP 38 Large pleural effusion compressing mainly on the left lateral wall. Does not appear to have any significant pericardial effusion Mild tricuspid regurgitation Previewed by: Dr. Ty Conklin DO (Electronically Signed) Final Date: 20 January 2022 12:51
[2022-01-20 14:07] LABS: Glucose,Whole Blood 67 mg/dL (70-110)
[2022-01-20 15:08] LABS: Glucose,Whole Blood 120 mg/dL (70-110)
[2022-01-20] MEDS: CEFEPIME 2 GM in SODIUM CHLORIDE 0.9% 100 ML IVPB SCH ×2 (16:36→23:04)
[2022-01-20] MEDS ORDERED: KETOROLAC 15 MG/ML 1 ML VIAL IVP STA (20:13)
[2022-01-20] MEDS: FERROUS SULFATE 325 MG TAB PO SCH (22:10)
--- NOTE | 2022-01-20 23:14 | P.CONS ---
History of Present Illness - Reason for Consult Consult date: 01/20/22 Empyema Requesting physician: Omer Ahmadi - Chief Complaint Right-sided chest pain x few days - History of Present Illness Patient is a 31-year-old female currently at [facility] do have a history of hepatitis C and IV drug use endocarditis mitral valve replacement in 2019, MRSA infection of the right hip area patient complaining of increasing shortness of breath for the last few weeks, the patient breathing was getting worse for the last few days and the patient was complaining of more pain right side chest pain describing it to be sharp intensity almost 10 out of 10 no radiation with associated shortness of breath she did have a cough mild to moderate intensity with occasional sputum , the patient denies any nausea no vomiting no abdominal pain or any diarrhea patient on presentation to the hospital was afebrile and no fever hemibody subsequently patient did have elevated lactic acid white count 11.4 D-dimer was 8.16 creatinine 0.8 liver enzymes are elevated patient did have a chest x-ray no acute cardiopulmonary disease patient however did have a CT angiogram of the chest that was negative for PE did shows left anterior medial fluid collection concerning for possible empyema rightward shift of the mediastinum patient was started on vancomycin and Zosyn infectious disease was consulted for further management of antibiotic th erapy Review of Systems Positive point has been mentioned in the HPI rest of the systems are negative Past Medical History Past Medical History: No Reported History Additional Past Medical History / Comment(s): Hep C, endocarditis History of Any Multi-Drug Resistant Organisms: MRSA Past Surgical History: Orthopedic Surgery Additional Past Surgical History / Comment(s): Mitral valve replaced 01/2020 at [facility], Right hip sx r/t to MRSA Past Psychological History: No Psychological Hx Reported Smoking Status: Current every day smoker Past Alcohol Use History: None Reported Past Drug Use History: Heroin - Past Family History Mother Family Medical History: No Reported History Father Family Medical History: No Reported History Medications and Allergies Home Medications Medication Instructions Recorded Confirmed Type Albuterol Nebulized [Ventolin 2.5 mg INHALATION RT-BID 01/19/22 01/19/22 History Nebulized] Aspirin EC [Ecotrin Low Dose] 81 mg PO DAILY 01/19/22 01/19/22 History Ensure 1 can PO DAILY 01/19/22 01/19/22 History Ferrous Sulfate [Feosol] 325 mg PO HS 01/19/22 01/19/22 History Metoprolol Tartrate [Lopressor] 12.5 mg PO BID 01/19/22 01/19/22 History Multivit/Iron Sulf/Folic Acid 1 tab PO DAILY 01/19/22 01/19/22 History [Multivitamin with Iron] Omeprazole 20 mg PO DAILY 01/19/22 01/19/22 History hydroCHLOROthiazide [Hydrodiuril] 25 mg PO DAILY 01/19/22 01/19/22 History Allergies Allergy/AdvReac Type Severity Reaction Status Date / Time metoprolol [From Lopressor] AdvReac "Doesn't Verified 01/19/22 17:17 feel well" Physical Exam Vitals: Vital Signs Temp Pulse Resp BP Pulse Ox 01/20/22 09:42 104 H 01/20/22 09:36 107 H 01/20/22 07:16 112 H 18 114/87 97 01/20/22 06:05 97.7 F 102/86 01/20/22 00:42 110 H 20 109/86 97 01/19/22 20:56 100 18 105/86 97 01/19/22 19:52 107 H 20 141/102 92 L 01/19/22 19:00 72 16 109/53 98 01/19/22 17:01 98 16 108/91 100 01/19/22 14:54 101 H 16 129/86 100 01/19/22 11:51 98.1 F 106 H 18 104/75 100 GENERAL DESCRIPTION: Middle-aged female lying in bed, no distress. No tachypnea or accessory muscle of respiration use. HEENT: Shows Pallor , no scleral icterus. Oral mucous membrane is dry. No pharyngeal erythema or thrush NECK: Trachea central, no thyromegaly. LUNGS: Unlabored breathing. Decreased breath sound at the base . HEART: S1, S2, regular rate and rhythm. No loud murmur ABDOMEN: Soft, no tenderness , guarding or rigidity, no organomegaly EXTREMITIES: No edema of feet. SKIN: No rash, no masses palpable. NEUROLOGICAL: The patient is awake, alert, oriented x3, mood and affect normal. Results CBC & Chem 7: 01/23/22 08:29 01/23/22 08:34 Labs: Abnormal Lab Results - Last 24 Hours (Table) 01/19/22 01/19/22 01/19/22 Range/Units 15:16 15:57 17:00 WBC 11.4 H (3.8-10.6) k/uL MCH (27.0-32.0) pg MCHC (32.0-37.0) g/dL RDW 17.4 H (11.5-15.5) % Monocytes # 1.1 H (0-1.0) k/uL Eosinophils # (0.04-0.35) X 10*3/uL PT 17.0 H (9.0-12.0) sec INR 1.7 H (<1.2) D-Dimer 8.16 H (<0.60) mg/L FEU Sodium 131 L (137-145) mmol/L Chloride 92 L (98-107) mmol/L Carbon Dioxide 16 L (22-30) mmol/L BUN 19 H (7-17) mg/dL Plasma Lactic Acid Binu (0.7-2.0) mmol/L Total Bilirubin 3.0 H (0.2-1.3) mg/dL AST 360 H (14-36) U/L ALT 183 H (4-34) U/L 01/19/22 01/19/22 01/20/22 Range/Units 19:36 22:51 03:22 WBC (3.8-10.6) k/uL MCH 24.8 L (27.0-32.0) pg MCHC 29.9 L (32.0-37.0) g/dL RDW 18.0 H (11.5-15.5) % Monocytes # (0-1.0) k/uL Eosinophils # 0.02 L (0.04-0.35) X 10*3/uL PT (9.0-12.0) sec INR (<1.2) D-Dimer (<0.60) mg/L FEU Sodium (137-145) mmol/L Chloride (98-107) mmol/L Carbon Dioxide (22-30) mmol/L BUN (7-17) mg/dL Plasma Lactic Acid Binu 5.9 H* 5.8 H* (0.7-2.0) mmol/L Total Bilirubin (0.2-1.3) mg/dL AST (14-36) U/L ALT (4-34) U/L 01/20/22 01/20/22 Range/Units 03:22 07:44 WBC (3.8-10.6) k/uL MCH (27.0-32.0) pg MCHC (32.0-37.0) g/dL RDW (11.5-15.5) % Monocytes # (0-1.0) k/uL Eosinophils # (0.04-0.35) X 10*3/uL PT (9.0-12.0) sec INR (<1.2) D-Dimer (<0.60) mg/L FEU Sodium (137-145) mmol/L Chloride (98-107) mmol/L Carbon Dioxide (22-30) mmol/L BUN (7-17) mg/dL Plasma Lactic Acid Binu 5.1 H* 4.9 H* (0.7-2.0) mmol/L Total Bilirubin (0.2-1.3) mg/dL AST (14-36) U/L ALT (4-34) U/L Assessment and Plan (1) Empyema Current Visit: Yes Status: Acute Code(s): J86.9 - PYOTHORAX WITHOUT FISTULA SNOMED Code(s): 036929642 Plan: 1patient presented to hospital with right-sided chest pain cough in this patient with evidence of abnormal CT concerning for possible empyema patient to have a history of IV drug use and will need to cover for both resistant gram- positive as well as gram-negative pathogen 2-obtain a sputum for gram stain and culture and check inflammatory markers 3-patient to continue vancomycin pharmacy to dose however discontinue Zosyn decrease risk of nephrotoxicity 4-we will add cefepime to cover for the gram-negative gildardo awaiting further work- up to be completed We will follow on clinical condition and cultures to further adjust medication if needed Thank you for this consultation will follow this patient along with you Time with Patient: Greater than 30
--- NOTE | 2022-01-20 23:53 | CONS ---
CONSULTATION HISTORY: Bernice is a 31-year-old lady who is currently in group home, was brought to the emergency room at [facility] with symptoms of shortness of breath. She also complains of right-sided chest discomfort, cough, and feeling congested. She has a history of hepatitis C and has used IV drugs and apparently suffered from endocarditis, for which she underwent mitral valve surgery in 2019 at [facility]. We do not have any information on the surgical details. She states that she underwent some surgery with a thoracotomy approach. We have been consulted because of the concern about pericardial effusion. The patient had a chest x-ray that revealed cardiomegaly. She subsequently had a CT scan of the chest that revealed large fluid collection in the left pleural space, but there was also concern about pericardial effusion. Due to this, we have been consulted. An echocardiogram that was done showed large pleural effusion that seems to be compressing the heart without any significant pericardial effusion. Her D-dimer is elevated. Lactic acid is elevated. First set of troponin is negative. Her white cell count was high at 11.4. Electrolytes showed a potassium of 4.2, BUN is 16, creatinine 0.8. AST and ALT are elevated. EKG shows sinus rhythm with nonspecific ST-T wave changes. The patient has already been seen by a relations coordinator and Cardiothoracic Surgery has been already done. The patient is currently on antibiotics. This patient needs thoracentesis and removal of the possible empyema that we are noticing in the pleural space. She needs blood cultures to rule out infective endocarditis. We are going to review surgical information from [employer]. The echocardiogram is not describing a prosthetic valve. PAST MEDICAL HISTORY: Significant for infective endocarditis, status post some form of valvular heart surgery, whose details are not available to me. MEDICATIONS: Include, 1. Aspirin. 2. Omeprazole. 3. HydroDIURIL. 4. Lopressor. 5. Iron. 6. Ensure. FAMILY HISTORY: Negative for premature coronary artery disease. SOCIAL HISTORY: Negative for current smoking, EtOH abuse, or drug abuse. REVIEW OF SYSTEMS: HEENT: Unremarkable. CARDIAC: As described above. RESPIRATORY: As described above. GI: Negative. GENITOURINARY: Negative. ALLERGY/IMMUNOLOGY: Negative. SKIN: Negative. MUSCULOSKELETAL: Negative. ENDOCRINE: Negative. DERM: Negative. CONSTITUTIONAL: Negative. ONCOLOGICAL: Negative. SLIDE DEVELOPER: Negative. Rest of the system review is not relevant. PHYSICAL EXAMINATION: GENERAL: Comfortable at rest. VITAL SIGNS: Heart rate is 110 beats per minute. Blood pressure is 120/80, respiratory rate is 16, O2 saturation is 99% on room air. NECK: There is no jugular venous distention. There is diminished air entry at the left base. HEART: Reveals first and second heart sounds. No gallop. No murmur. ABDOMEN: Soft. EXTREMITIES: Examination of extremities did not reveal any edema. Peripheral pulses are felt. ASSESSMENT AND PLAN: 1. Large left-sided pleural effusion. 2. History of infective endocarditis. PLAN: Send off blood cultures. Continue antibiotics. Surgery has already been consulted. The patient needs paracentesis expeditiously as the pleural fluid is pushing onto her heart based on all the noninvasive testing so far. MMODL / IJN: [id number] /
[2022-01-21] MEDS: ONDANSETRON 4 MG/2 ML VIAL IVP PRN ×3 (00:26→15:12)
[2022-01-21] MEDS: KETOROLAC 15 MG/ML 1 ML VIAL IVP SCH ×5 (00:27→23:06)
[2022-01-21] MEDS ORDERED: VANCOMYCIN TROUGH DUE 1 EACH MISC MISCELLANE ONE (03:00)
[2022-01-21 03:19] LABS: Anisocytosis Slight; Basophils % (A) 1 %; Eosinophils % (A) 0 %; HGB 13.5 gm/dL (11.4-16.0); Hypochromasia Marked; Lymphocytes # (A) 2.2 k/uL (1.0-4.8); Lymphocytes % (A) 24 %; MCH 25.8 pg (25.0-35.0); MCHC 31.5 g/dL (31.0-37.0); Mean Platelet Volume 8.7; Monocytes # (A) 1.4 k/uL (0-1.0); Monocytes % (A) 15 %; Neutrophils # (A) 5.4 k/uL (1.3-7.7); Neutrophils % (A) 59 %; Platelet Count 245 k/uL (150-450); Poikilocytosis Slight; RBC 5.24 m/uL (3.80-5.40); RDW 17.6 % (11.5-15.5); WBC 9.1 k/uL (3.8-10.6)
[2022-01-21 03:31] LABS: ALT 268 U/L (4-34); AST 579 U/L (14-36); African American GFR (CKD) >90 (>60 ml/min/1.73 sqM); Albumin 3.1 g/dL (3.5-5.0); Alkaline Phosphatase 84 U/L (38-126); Anion Gap 16 mmol/L; Blood Urea Nitrogen 22 mg/dL (7-17); C Reactive Protein 2.8 mg/dL (<1.0); Calcium 8.1 mg/dL (8.4-10.2); Carbon Dioxide 13 mmol/L (22-30); Chloride 100 mmol/L (98-107); Glucose 106 mg/dL (74-99); Non-African American GFR(CKD) >90 (>60 ml/min/1.73 sqM); Potassium 3.9 mmol/L (3.5-5.1); Sodium 129 mmol/L (137-145); Total Bilirubin 2.5 mg/dL (0.2-1.3); Total Protein 6.3 g/dL (6.3-8.2)
[2022-01-21] MEDS ORDERED: Potassium Replacement Protocol 1 EACH MISC MISCELLANE PRN (03:43)
[2022-01-21] MEDS: VANCOMYCIN 1,250 MG in SODIUM CHLORIDE 0.9% 250 ML IVPB SCH ×2 (03:45→18:35)
[2022-01-21] MEDS: HYDROcodone/APAP 5-325MG 1 EACH TAB PO PRN ×4 (04:15→21:07)
[2022-01-21] MEDS: POTASSIUM CHLORIDE 10 MEQ in WATER FOR INJECTION 1 100ML.BAG IVPB SCH ×2 (04:15→05:15)
--- NOTE | 2022-01-21 07:41 | XR ---
EXAMINATION TYPE: XR chest 1V portable DATE OF EXAM: 01/21/2022 COMPARISON: 01/19/2022 HISTORY: Chest pain TECHNIQUE: Single frontal view of the chest is obtained. FINDINGS: Heart is enlarged and there is increasing consolidation and pleural effusion. Tiny right p leural effusion noted correlate for mild venous congestion. No pneumothorax. Postsurgical changes not ed overlying the cardiac silhouette. IMPRESSION: 1. Cardiomegaly correlate for mild venous congestion. 2. Increasing left basilar consolidation and small bilateral effusions.
--- NOTE | 2022-01-21 08:11 | P.PN ---
Subjective Progress Note Date: 01/21/22 Principal diagnosis: Left-sided chest fluid collection, empyema, shortness of breath, chest pain, nonproductive cough, leukocytosis, lactic acidosis, elevated liver enzymes present on admission. 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 Remains hemodynamically stable, sinus rhythm to sinus tach on telemetry. No complaints of pain or shortness of breath at this time. Currently on room air. Echocardiogram was completed yesterday which demonstrated normal left ventricular systolic function with EF 55-60%, mild pulmonary hypertension, mild tricuspid regurgitation, and noted large pleural effusion compressing mainly on the left lateral wall without any significant pericardial effusion. Recommendations were made for interventional radiology to place pigtail catheter, however they have deferred at this time. There was plans to transfer patient back to [facility], however discussion is ongoing with the transfer team. Of note records were obtained from [facility], patient did not have mitral valve surgery but in fact had tricuspid valve repair with bovine patch repair of the anterior leaflet and 28 mm Medtronic Contour 3-D by Dr. 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 Objective - Vital Signs Vital signs: Vital Signs Temp 97.5 F L 01/21/22 04:00 Pulse 107 H 01/21/22 07:00 Resp 33 H 01/21/22 07:00 BP 145/93 01/21/22 07:00 Pulse Ox 94 L 01/21/22 07:00 FiO2 Intake & Output 01/20/22 01/21/22 01/21/22 18:59 06:59 18:59 Intake Total 600 2000 Output Total 200 0 Balance 400 1999 Weight 63.957 kg 65.2 kg Intake: IV 600 1300 0.9 500 1200 Cefepime 2 gm In Sodium 100 100 Chloride 0.9% 100 ml @ 25 mls/hr IVPB Q8HR [facility] Rx# :[id number] Intake, IV Titration 700 Amount Potassium Chloride 10 meq 200 In Water For Injection 1 100ml.bag @ 100 mls/hr IVPB Q1H [facility] Rx#: [id number] Vancomycin 1,250 mg In 500 Sodium Chloride 0.9% 250 ml @ 125 mls/hr IVPB Q8H [facility] Rx#:[id number] Output: Urine 200 0 Other: Voiding Method Bedpan Bedside Commode # Voids 1 # Bowel Movements 1 1 - Exam CONSTITUTIONAL: Appears comfortable, cooperative, no acute distress RESPIRATORY: Lungs sounds diminished bilaterally. Respirations even, nonlabored. Currently on room air with oxygen saturation 93%. Strong nonproductive cough. CARDIOVASCULAR: S1, S2 present. Tachycardia but regular rate and rhythm, sinus tach on telemetry. Palpable peripheral pulses bilaterally. No edema present. No calf pain or tenderness noted. GASTROINTESTINAL: Abdomen soft, nontender, nondistended. Active bowel sounds present 4 quadrants. Tolerating diet. GENITOURINARY: Continues to void clear, yellow urine. INTEGUMENTARY: Skin is warm and dry with evidence of good perfusion. NEUROLOGIC: Cranial nerves II through XII intact MUSKULOSKELETAL: Able to move all extremities, strength equal bilaterally, gait normal PSYCHIATRIC: Alert and oriented to person place and time - Allied health notes Allied health notes reviewed: nursing - Labs CBC & Chem 7: 01/21/22 03:04 01/21/22 02:50 Labs: Abnormal Lab Results - Last 24 Hours (Table) 01/20/22 01/20/22 01/20/22 Range/Units 03:22 03:22 07:44 MCH 24.8 L (27.0-32.0) pg MCHC 29.9 L (32.0-37.0) g/dL RDW 18.0 H (11.5-14.5) % Monocytes # (0-1.0) k/uL Eosinophils # 0.02 L (0.04-0.35) X 10*3/uL Sodium 131 L (135-145) mmol/L Carbon Dioxide 16.4 L (20.0-27.5) mmol/L Anion Gap 18.60 H (10.00-18.00) mmol/L BUN (7-17) mg/dL BUN/Creatinine Ratio 20.38 H (12.00-20.00) Ratio Glucose 127 H (70-110) mg/dL POC Glucose (mg/dL) (70-110) mg/dL Plasma Lactic Acid Binu 4.9 H* (0.7-2.0) mmol/L Calcium 8.6 L (8.7-10.3) mg/dL Total Bilirubin 1.50 H (0.30-1.20) mg/dL AST 251 H (13-35) U/L ALT 186 H (8-44) U/L C-Reactive Protein (<1.0) mg/dL Albumin 3.5 L (3.8-4.9) g/dL Albumin/Globulin Ratio 1.09 L (1.60-3.17) g/dL 01/20/22 01/20/22 01/20/22 Range/Units 11:08 14:06 15:06 MCH (27.0-32.0) pg MCHC (32.0-37.0) g/dL RDW (11.5-14.5) % Monocytes # (0-1.0) k/uL Eosinophils # (0.04-0.35) X 10*3/uL Sodium (135-145) mmol/L Carbon Dioxide (20.0-27.5) mmol/L Anion Gap (10.00-18.00) mmol/L BUN (7-17) mg/dL BUN/Creatinine Ratio (12.00-20.00) Ratio Glucose (70-110) mg/dL POC Glucose (mg/dL) 67 L 120 H (70-110) mg/dL Plasma Lactic Acid Binu 7.0 H* (0.7-2.0) mmol/L Calcium (8.7-10.3) mg/dL Total Bilirubin (0.30-1.20) mg/dL AST (13-35) U/L ALT (8-44) U/L C-Reactive Protein (<1.0) mg/dL Albumin (3.8-4.9) g/dL Albumin/Globulin Ratio (1.60-3.17) g/dL 01/20/22 01/20/22 01/20/22 Range/Units 15:18 18:19 22:02 MCH (27.0-32.0) pg MCHC (32.0-37.0) g/dL RDW (11.5-14.5) % Monocytes # (0-1.0) k/uL Eosinophils # (0.04-0.35) X 10*3/uL Sodium (135-145) mmol/L Carbon Dioxide (20.0-27.5) mmol/L Anion Gap (10.00-18.00) mmol/L BUN (7-17) mg/dL BUN/Creatinine Ratio (12.00-20.00) Ratio Glucose (70-110) mg/dL POC Glucose (mg/dL) (70-110) mg/dL Plasma Lactic Acid Binu 7.2 H* 6.1 H* 4.6 H* (0.7-2.0) mmol/L Calcium (8.7-10.3) mg/dL Total Bilirubin (0.30-1.20) mg/dL AST (13-35) U/L ALT (8-44) U/L C-Reactive Protein (<1.0) mg/dL Albumin (3.8-4.9) g/dL Albumin/Globulin Ratio (1.60-3.17) g/dL 01/21/22 01/21/22 01/21/22 Range/Units 02:50 02:50 03:04 MCH (27.0-32.0) pg MCHC (32.0-37.0) g/dL RDW 17.6 H (11.5-14.5) % Monocytes # 1.4 H (0-1.0) k/uL Eosinophils # (0.04-0.35) X 10*3/uL Sodium 129 L (135-145) mmol/L Carbon Dioxide 13 L (20.0-27.5) mmol/L Anion Gap (10.00-18.00) mmol/L BUN 22 H (7-17) mg/dL BUN/Creatinine Ratio (12.00-20.00) Ratio Glucose 106 H (70-110) mg/dL POC Glucose (mg/dL) (70-110) mg/dL Plasma Lactic Acid Binu 5.8 H* (0.7-2.0) mmol/L Calcium 8.1 L (8.7-10.3) mg/dL Total Bilirubin 2.5 H (0.30-1.20) mg/dL AST 579 H (13-35) U/L ALT 268 H (8-44) U/L C-Reactive Protein 2.8 H (<1.0) mg/dL Albumin 3.1 L (3.8-4.9) g/dL Albumin/Globulin Ratio (1.60-3.17) g/dL Microbiology - Last 24 Hours (Table) 01/19/22 19:23 Blood Culture - Preliminary Blood No Growth after 24 hours 01/19/22 19:16 Blood Culture - Preliminary Blood No Growth after 24 hours - Imaging and Cardiology Chest x-ray: report reviewed, image reviewed Assessment and Plan Assessment: 1. Left-sided chest fluid collection, empyema 2. Shortness of breath, chest pain, nonproductive cough, secondary to above 3. Leukocytosis, lactic acidosis present on admission 4. Elevated liver enzymes present on admission 5. 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 IV heroin abuse which she stopped only prior to penitentiary term 7. History of hepatitis C 8. Current tobacco dependence 9. History of right hip surgery secondary to MRSA infection 10. Covid infection in November 2021 11. Medical noncompliance with history of multiple times leaving AMA Plan: 1. Recommend pigtail catheter placement by interventional radiology for lytic instillation 2. Antibiotic management per infectious disease 3. Increase activity as tolerated 4. Counseling regarding smoking cessation and IV heroin cessation was provided to the patient 5. Continue supportive therapy 6. Medical management of other comorbidities per primary care, pulmonology 7. More recommendations to follow
[2022-01-21] MEDS: CEFEPIME 2 GM in SODIUM CHLORIDE 0.9% 100 ML IVPB SCH ×3 (08:54→23:05)
[2022-01-21] MEDS: hydroCHLOROthiazide 25 MG TAB PO SCH (08:55)
[2022-01-21] MEDS: BENZONATATE 100 MG CAP PO SCH ×3 (08:55→21:07)
[2022-01-21] MEDS: PANTOPRAZOLE 40 MG TABLET PO SCH (08:55)
[2022-01-21] MEDS: MULTIVITAMINS, THERA 1 EACH TAB PO SCH (08:55)
[2022-01-21] MEDS: ASPIRIN 81 MG PO SCH (08:55)
[2022-01-21] MEDS: SODIUM CHLORIDE 0.9% 1,000 ML IV SCH ×2 (08:56→21:38)
[2022-01-21] MEDS: ALBUTEROL NEBULIZED 2.5 MG/3 ML INHALATION SCH ×3 (09:20→20:17)
--- NOTE | 2022-01-21 12:07 | CDI ---
Documentation Clarification Form Date: 01/21/2022 11:12:46 AM From: Astrid Cihrinos RN, CCDS Email: [email or web address] Admit Date: 01/19/2022 07:01:00 PM Patient Name: Bernice Mueller Visit Number: [id number] Discharge Date: ATTENTION: The Clinical Documentation Specialists (CDI) and [facility] Coding Staff appreciate your assistance in clarifying documentation. Please respond to the clarification below the line at the bottom and electronically sign. The CDI & [facility] Coding staff will review the response and follow-up if needed. Please note: Queries are made part of the Legal Health Record. If you have any questions, please contact the author of this message via ITS. Dr. Saroj Pineda Sepsis is documented in the ED note but is not noted in subsequent documentation. Clarification is requested. History/Risk Factors: 31-year-old female with hx of heroin abuse, endocarditis with mitral valve surgery, Hepatitis C and Covid infection in November. Clinical Indicators: increased SOB and right sided chest pain. Skin looks yellow 01/19 ED: "Empyema, Sepsis." 01/19 H&P: "EKG shows sinus tachycardia. Chest x-ray, cardiomegaly, elevated D- dimer. CT of the chest shows large probably empyema in the left lung. Pulmonary and Infectious Disease consult. Lactic acidosis elevated at 5.9. Fluids. Broad- spectrum antibiotics with Vancomycin and Zosyn." 01/19 Labs: WBC 11.4, D dimer 8.16, lactic acid 5.9, AST 360, ALT 183 01/21 Labs: CRP 2.8, Procalcitonin 0.36 01/20 Vital signs: Temp 95.9, HR 111, RR 46, BP 90/46 pox 96% 01/19 CTA: Left anterior medial fluid collection favored to be within the pleural space with enhancing pleura concerning for empyema. Rightward shift of the mediastinum/heart from a aforementioned left-sided pleural fluid collection favored to represent empyema. 01/21 CXR: Cardiomegaly correlate for mild venous congestion. Increasing left basilar consolidation and small bilateral effusions. 01/21 CTS: "Leukocytosis, lactic acidosis present on admission. Recommend pigtail catheter placement. Antibiotic management per ID." 01/20 ID: "Possible empyema. Continue Vancomycin, discontinue Zosyn, add Cefepime." Treatment: IV Cefepime 2gm Q8H, IV Vancomycin 1250mg Q8H then Q12H, 0.9 NS @100mL/hr Please clarify if Sepsis is: [ ] Sepsis confirmed, remains under treatment [ ] Sepsis confirmed, resolved [ ] Sepsis ruled out [ ] Other condition, please specify [ ] Unable to determine MTDD
--- NOTE | 2022-01-21 12:08 | P.PN ---
Subjective Progress Note Date: 01/21/22 Principal diagnosis: Fluid collection displacing the heart, possible cyst, possible empyema. This is a pleasant 31-year-old female patient with a known history of hepatitis C, IV drug abuse with heroin last used 11/03/2021, endocarditis, mitral valve replacement in 2019 at [facility], MRSA and a right hip. Chest has chronic and ongoing tobacco dependence. She also states she had a CoVID infection in November and has been short of breath since that time. She is curren tly incarcerated. She was brought [facility] from [facility] [place] [facility] with complaints of right- sided chest pain, shortness of breath, cough and congestion. Chest x-ray revealed cardiomediastinal silhouette moderately enlarged. Postsurgical changes with valvular prosthesis. No evidence of pleural effusion. No focal consolidation. No pneumothorax. CT angiogram ruled out pulmonary embolism however there is noted large fluid collection within the anterior medial left pleural space with associated atelectasis. There is suggestion of enhancing pleura. No focal consolidation or pneumothorax. However, the CAT scan was further reviewed and is now being reported as a large fluid collection most likely in the pericardium. Echocardiogram is pending. EKG reveals normal sinus rhythm with nonspecific ST and T wave abnormalities. Ultrasound of the liver revealed cholelithiasis with no definitive evidence for gallbladder wall thickening or. Cholestatic fluid. Liver was within normal limits. White count 9.1. Hemoglobin 12.6. Platelets 334. INR 1.7. D-dimer 8.16. Sodium 131. Potassium 5.1. Bicarb 16. BUN 19. Creatinine 0.63. Lactic acid 5.8, 4.9. AST 360. ALT 183. Troponin negative 1. The patient is seen in consultation in the emergency department. She is awake and alert in no acute distress. She is maintaining good O2 saturations in the mid 90s on room air. She's been afebrile. Slightly tachycardic. Hemodynamically stable. She is still having issues with some right-sided chest discomfort. Some shortness of breath. Nonproductive cough. She was initiated on vancomycin and Zosyn, 0.9 normal saline at 100. Patient was reevaluated today on 01/21/22, remains in the ICU awaiting to be transferred possibly to [facility]. I had a long discussion with the radiologist yesterday on multiple occasions and the radiologist is extremely reluctant to consider CT-guided or ultrasound-guided drainage of the fluid collection noted on her initial CT of the chest and chest x-ray. He feels that this is a fluid collection that is in close proximity to the heart, and still believe this may be pericardial fluid or cysts. Possibility of empyema is not entirely ruled out, but according to him this is not a fluid that seems to be consistent with empyema. At any rate him and the cardiothoracic surgery on the case, are extremely reluctant to do any surgical intervention. Hence the recommendation is to transfer the patient to a tertiary care center. Apparently the patient had previous history of MRSA endocarditis with tricuspid valve repair in February of 2020 at [facility], she had history of IV heroin abuse, history of hepatitis C, history of right hip debridement secondary to MRSA infection, history of Covid 19 infection in November of 2021 and history of medical noncompliance, she had multiple episodes of leaving [facility] in the past. I discussed her condition today with the admitting physician Dr. Pineda, and apparently he is in the process according to him of making the transfer take place to [facility]. Objective - Vital Signs Vital signs: Vital Signs Temp 96.2 F L 01/21/22 08:00 Pulse 108 H 01/21/22 11:00 Resp 27 H 01/21/22 11:00 BP 114/83 01/21/22 10:00 Pulse Ox 94 L 01/21/22 11:00 FiO2 Intake & Output 01/20/22 01/21/22 01/21/22 18:59 06:59 18:59 Intake Total 600 1999 600 Output Total 200 0 0 Balance 400 1999 600 Weight 63.957 kg 65.2 kg Intake: IV 600 1300 400 0.9 500 1200 300 Cefepime 2 gm In Sodium 100 100 100 Chloride 0.9% 100 ml @ 25 mls/hr IVPB Q8HR [facility] Rx# :[id number] Intake, IV Titration 700 Amount Potassium Chloride 10 meq 200 In Water For Injection 1 100ml.bag @ 100 mls/hr IVPB Q1H [facility] Rx#: [id number] Vancomycin 1,250 mg In 500 Sodium Chloride 0.9% 250 ml @ 125 mls/hr IVPB Q8H [facility] Rx#:[id number] Oral 200 Output: Urine 200 0 0 Other: Voiding Method Bedpan Bedside Commode Bedside Commode # Voids 1 1 # Bowel Movements 1 1 1 - Exam Physical Exam: Revealed a 51-year-old female in no distress Head: Atraumatic, normocephalic. HEENT:[Neck is supple.] [No neck masses.] [No thyromegaly.] [No JVD.] Chest: [Clear throughout, no crackles, no rhonchi, no wheezes.] Cardiac Exam: [Normal S1 and S2, no S3 gallop, no murmur.] Abdomen: [Soft, nontender, no megaly, no rebound, no guarding, normal bowel sounds.] Extremities: [No clubbing, no edema, no cyanosis.] Neurological Exam: [No focal neurologic deficit.] Alert oriented 3. Psychiatric: Normal mood affect and normal mental status examination. Skin: No rashes. - Labs CBC & Chem 7: 01/21/22 03:04 01/21/22 02:50 Labs: Abnormal Lab Results - Last 24 Hours (Table) 01/20/22 01/20/22 01/20/22 Range/Units 03:22 14:06 15:06 RDW (11.5-15.5) % Monocytes # (0-1.0) k/uL Sodium 131 L (135-145) mmol/L Carbon Dioxide 16.4 L (20.0-27.5) mmol/L Anion Gap 18.60 H (10.00-18.00) mmol/L BUN (7-17) mg/dL BUN/Creatinine Ratio 20.38 H (12.00-20.00) Ratio Glucose 127 H (70-110) mg/dL POC Glucose (mg/dL) 67 L 120 H (70-110) mg/dL Plasma Lactic Acid Binu (0.7-2.0) mmol/L Calcium 8.6 L (8.7-10.3) mg/dL Total Bilirubin 1.50 H (0.30-1.20) mg/dL AST 251 H (13-35) U/L ALT 186 H (8-44) U/L C-Reactive Protein (<1.0) mg/dL Albumin 3.5 L (3.8-4.9) g/dL Albumin/Globulin Ratio 1.09 L (1.60-3.17) g/dL Procalcitonin (0.02-0.09) ng/mL 01/20/22 01/20/22 01/20/22 Range/Units 15:18 18:19 22:02 RDW (11.5-15.5) % Monocytes # (0-1.0) k/uL Sodium (135-145) mmol/L Carbon Dioxide (20.0-27.5) mmol/L Anion Gap (10.00-18.00) mmol/L BUN (7-17) mg/dL BUN/Creatinine Ratio (12.00-20.00) Ratio Glucose (70-110) mg/dL POC Glucose (mg/dL) (70-110) mg/dL Plasma Lactic Acid Binu 7.2 H* 6.1 H* 4.6 H* (0.7-2.0) mmol/L Calcium (8.7-10.3) mg/dL Total Bilirubin (0.30-1.20) mg/dL AST (13-35) U/L ALT (8-44) U/L C-Reactive Protein (<1.0) mg/dL Albumin (3.8-4.9) g/dL Albumin/Globulin Ratio (1.60-3.17) g/dL Procalcitonin (0.02-0.09) ng/mL 01/21/22 01/21/22 01/21/22 Range/Units 02:50 02:50 02:50 RDW (11.5-15.5) % Monocytes # (0-1.0) k/uL Sodium 129 L (135-145) mmol/L Carbon Dioxide 13 L (20.0-27.5) mmol/L Anion Gap (10.00-18.00) mmol/L BUN 22 H (7-17) mg/dL BUN/Creatinine Ratio (12.00-20.00) Ratio Glucose 106 H (70-110) mg/dL POC Glucose (mg/dL) (70-110) mg/dL Plasma Lactic Acid Binu 5.8 H* (0.7-2.0) mmol/L Calcium 8.1 L (8.7-10.3) mg/dL Total Bilirubin 2.5 H (0.30-1.20) mg/dL AST 579 H (13-35) U/L ALT 268 H (8-44) U/L C-Reactive Protein 2.8 H (<1.0) mg/dL Albumin 3.1 L (3.8-4.9) g/dL Albumin/Globulin Ratio (1.60-3.17) g/dL Procalcitonin 0.36 H (0.02-0.09) ng/mL 01/21/22 01/21/22 Range/Units 03:04 07:08 RDW 17.6 H (11.5-15.5) % Monocytes # 1.4 H (0-1.0) k/uL Sodium (135-145) mmol/L Carbon Dioxide (20.0-27.5) mmol/L Anion Gap (10.00-18.00) mmol/L BUN (7-17) mg/dL BUN/Creatinine Ratio (12.00-20.00) Ratio Glucose (70-110) mg/dL POC Glucose (mg/dL) (70-110) mg/dL Plasma Lactic Acid Binu 5.9 H* (0.7-2.0) mmol/L Calcium (8.7-10.3) mg/dL Total Bilirubin (0.30-1.20) mg/dL AST (13-35) U/L ALT (8-44) U/L C-Reactive Protein (<1.0) mg/dL Albumin (3.8-4.9) g/dL Albumin/Globulin Ratio (1.60-3.17) g/dL Procalcitonin (0.02-0.09) ng/mL Microbiology - Last 24 Hours (Table) 01/19/22 19:23 Blood Culture - Preliminary Blood No Growth after 24 hours 01/19/22 19:16 Blood Culture - Preliminary Blood No Growth after 24 hours Assessment and Plan Assessment: Impression: Left sided fluid collection in the left chest, exact etiology is not clear, could be a pericardial fluid or cyst, could be empyema, however surgical service and interventional service on the case are both reluctant to consider surgical drainage at this point, and I'm recommending another strongly recommending transfer to a tertiary care center. In the meantime continue IV antibiotics. Updated her admitting physician on the situation, and according to him he is already making plans to transfer the patient to [facility]. I have spent significant amount of time discussing this patient's condition with different physicians including the interventional radiologist, thoracic surgery staff, and admitting physician. And cardiology. At this point I am strongly recommending transfer to a tertiary care center. Multiple comorbidities including history of bacterial endocarditis and tricuspid valve repair, history of heroin abuse, history of hepatitis C, and history of MRSA involving her right hip. Recommendation: As above. In the meantime continue antibiotics. Empirically as per infectious disease on the case Time with Patient: Less than 30
[2022-01-21] MEDS: guaiFENesin-DM 100-10MG/5ML 10 ML CUP PO PRN (16:00)
[2022-01-21 17:58] LABS: Total Protein 6.1 g/dL (6.3-8.2)
[2022-01-21 19:29] LABS: Appearance,Urine Turbid (Clear); Bilirubin,Urine 1+ (Negative); Blood,Urine Large (Negative); Color,Urine Dark Brown; Glucose,Urine (UA) Negative (Negative); Hyaline Casts,Urine 24 /lpf (0-2); Ketones,Urine 1+ (Negative); Leukocyte Esterase,Urine Small (Negative); Mucus,Urine Rare /hpf; Nitrite,Urine Negative (Negative); Protein,Urine 2+ (Negative); RBC,Urine >182 /hpf (0-5); Squamous Epithelial Cell,Urine 10 /hpf (0-4); WBC,Urine 18 /hpf (0-5)
[2022-01-21] MEDS: FERROUS SULFATE 325 MG TAB PO SCH (21:07)
--- NOTE | 2022-01-21 23:36 | PN ---
PROGRESS NOTE SUBJECTIVE: A 31-year-old lady with history of infective endocarditis, intravenous drug abuse, history of mitral valve surgery at [facility], who is currently incarcerated, comes into hospital with history of chest discomfort, shortness of breath, and febrile illness, and was found to have large fluid collection in the left pleural space that seems to be pressing the heart without significant pericardial effusion. This morning, she is afebrile, mildly tachycardic and blood sugar is normal. Her symptoms have remained more or less unchanged. Her lactic acid is elevated. Hemoglobin is normal. White cell count is normal. She is receiving IV antibiotics. Liver enzymes are elevated. Blood cultures are still pending. OBJECTIVE: LUNGS: There is diminished air entry on the left side. HEART: First and second heart sounds are heard. No murmur. ABDOMEN: Soft. EXTREMITIES: Did not reveal any edema. Peripheral pulses are felt. LABORATORY STUDIES: Labs are as charted. ASSESSMENT AND PLAN: Left-sided pleural effusion, probably an empyema without significant pericardial effusion on the echocardiogram. The patient has been seen by Cardiothoracic Surgery. Line Rider is on the case. Interventional Radiologist did not feel comfortable draining the fluid and the patient is awaiting transfer to [facility] at this time. We will follow the patient. MMODL / IJN: [id number] /
[2022-01-22 00:57] LABS: Appearance,BF Turbid
--- NOTE | 2022-01-22 00:57 | PN ---
PROGRESS NOTE SUBJECTIVE: This white female remains in ICU. Waiting for transfer down to [facility], discussed with [facility] for transfer today. She has a pleural effusion left long anterior medial compressing the heart area. Negative for pericardial effusion on the echo. Remains on vancomycin, Zosyn, she says her breathing is no better than she got admitted. Lactic acid remains high at 7.7. She gets fluids at 75 mL an hour. Wait for pulmonology, Infectious Disease and Radiology recommendations if we can get a transfer. OBJECTIVE: LUNGS: Scattered rhonchi, wheeze. CARDIOVASCULAR: S1, S2. PSYCH: Fair mood and affect. NEUROLOGIC: Alert and oriented x3. She appears to be breathing is fairly regularly at this time. ASSESSMENT: Left pleural effusion, rule out empyema, normal white count, lactic acidosis, history of endocarditis, history of IV drug abuse. Prognosis guarded. Continue broad-spectrum antibiotics until transfer. Possible pleural drainage by radiologist or transfer to [facility] if possible. MMODL / IJN: [id number] /
[2022-01-22 02:58] LABS: Amylase, Fluid Source Body Fluid; Amylase,Body Fluid 15 U/L; T. Protein, Body Fluid Source Body Fluid; Total Protein, Body Fluid 5230 mg/dL
[2022-01-22 03:22] LABS: Glucose, BF Source Body Fluid; Glucose, Body Fluid <2 mg/dL
[2022-01-22] MEDS: HYDROcodone/APAP 5-325MG 1 EACH TAB PO PRN ×3 (03:48→20:30)
[2022-01-22 04:31] LABS: Anisocytosis Slight; Basophils # (A) 0.1 k/uL (0-0.2); Basophils % (A) 1 %; Eosinophils # (A) 0.1 k/uL (0-0.7); Eosinophils % (A) 1 %; HCT 45.2 % (34.0-46.0); HGB 13.6 gm/dL (11.4-16.0); Hypochromasia Marked; Lymphocytes # (A) 1.4 k/uL (1.0-4.8); Lymphocytes % (A) 15 %; MCH 26.2 pg (25.0-35.0); Monocytes # (A) 1.3 k/uL (0-1.0); Monocytes % (A) 13 %; Neutrophils # (A) 6.9 k/uL (1.3-7.7); Neutrophils % (A) 70 %; Platelet Count 186 k/uL (150-450); RBC 5.18 m/uL (3.80-5.40); RDW 17.2 % (11.5-15.5); WBC 9.9 k/uL (3.8-10.6)
[2022-01-22 04:32] LABS: MCV 87.3 fL (80.0-100.0)
[2022-01-22 04:43] LABS: ALT 412 U/L (4-34); AST 747 U/L (14-36); African American GFR (CKD) >90 (>60 ml/min/1.73 sqM); Albumin 2.9 g/dL (3.5-5.0); Alkaline Phosphatase 87 U/L (38-126); Anion Gap 13 mmol/L; Blood Urea Nitrogen 23 mg/dL (7-17); Calcium 7.9 mg/dL (8.4-10.2); Carbon Dioxide 17 mmol/L (22-30); Chloride 102 mmol/L (98-107); Glucose 81 mg/dL (74-99); Non-African American GFR(CKD) >90 (>60 ml/min/1.73 sqM); Potassium 3.8 mmol/L (3.5-5.1); Sodium 132 mmol/L (137-145); Total Protein 5.9 g/dL (6.3-8.2)
[2022-01-22 04:56] LABS: Poikilocytosis (M) Present; Polychromasia Present
[2022-01-22 05:52] LABS: LDH, Body Fluid Source Body Fluid
[2022-01-22] MEDS ORDERED: POTASSIUM CHLORIDE ER 20 MEQ TAB.ER PO SCH (06:00)
[2022-01-22] MEDS: PANTOPRAZOLE 40 MG TABLET PO SCH (06:05)
[2022-01-22] MEDS: KETOROLAC 15 MG/ML 1 ML VIAL IVP SCH ×4 (06:05→23:31)
[2022-01-22] MEDS: VANCOMYCIN 1,250 MG in SODIUM CHLORIDE 0.9% 250 ML IVPB SCH ×2 (06:05→20:29)
[2022-01-22] MEDS: SODIUM CHLORIDE 0.9% 1,000 ML IV SCH (06:06)
--- NOTE | 2022-01-22 07:36 | P.PN ---
Subjective Progress Note Date: 01/22/22 Principal diagnosis: Left-sided chest fluid collection, empyema, shortness of breath, chest pain, nonproductive cough, leukocytosis, lactic acidosis, elevated liver enzymes present on admission. 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, IV heroin abuse, hepatitis C, current tobacco dependence, right hip debridement secondary to MRSA infection, Covid infection in November 2021, medical noncompliance with multiple episodes of leaving AMA in the past POD #1 placement of left sided pigtail catheter by interventional radiology with removal of 660 mL purulent drainage The patient was seen and examined this morning sitting up in bed in the intensive care unit in no acute distress eating breakfast. Remains hemod ynamically stable, sinus rhythm on telemetry. No complaints of pain or shortness of breath at this time. Currently on room air. Remains on IV antibiotics per infectious disease. Patient had left-sided pigtail catheter placed yesterday evening by interventional radiology, patient reports immediat eboni feeling better. Clinically she looks much better this morning and reports significant improvement in her symptomatology. She does report some abdominal discomfort and bloating with very dark colored urine. Otherwise no other new concerns. Objective - Vital Signs Vital signs: Vital Signs Temp 98 F 01/22/22 04:00 Pulse 88 01/22/22 07:00 Resp 13 01/22/22 07:00 BP 103/73 01/22/22 07:00 Pulse Ox 95 01/22/22 07:00 FiO2 Intake & Output 01/21/22 01/22/22 01/22/22 18:59 06:59 18:59 Intake Total 1600 1575 100 Output Total 0 406 300 Balance 1600 1169 -200 Weight 76.1 kg Intake: IV 1100 1325 100 0.9 900 1100 100 Cefepime 2 gm In Sodium 200 100 Chloride 0.9% 100 ml @ 25 mls/hr IVPB Q8HR [facility] Rx# :[id number] Vancomycin 1,250 mg In 125 Sodium Chloride 0.9% 250 ml @ 125 mls/hr IVPB Q12H [facility] Rx#:[id number] Intake, IV Titration 250 Amount Vancomycin 1,250 mg In 250 Sodium Chloride 0.9% 250 ml @ 125 mls/hr IVPB Q8H [facility] Rx#:[id number] Oral 500 Output: Chest Tube Drainage 106 Chest Tube Left Posterior 106 Chest Urine 0 300 300 Other: Voiding Method Bedside Commode Bedside Commode # Voids 1 1 # Bowel Movements 1 - Exam CONSTITUTIONAL: Appears comfortable, cooperative, no acute distress RESPIRATORY: Lungs sounds diminished bilaterally. Respirations even, n onlabored. Currently on room air with oxygen saturation 96%. Strong nonproductive cough. CARDIOVASCULAR: S1, S2 present. Regular rate and rhythm, sinus rhythm on telemetry. Palpable peripheral pulses bilaterally. No edema present. GASTROINTESTINAL: Abdomen soft, nontender, nondistended. Active bowel sounds present 4 quadrants. Tolerating diet. GENITOURINARY: Continues to void INTEGUMENTARY: Skin is warm and dry NEUROLOGIC: Cranial nerves II through XII intact MUSKULOSKELETAL: Able to move all extremities, strength equal bilaterally PSYCHIATRIC: Alert and oriented to person place and time, appropriate affect, intact judgment and insight INVASIVE LINES AND TUBES: Left pigtail catheter present to waterseal, no air leaks present, 86 mL pink tinged thick drainage overnight, 150 mL since catheter placement - Allied health notes Allied health notes reviewed: nursing - Labs CBC & Chem 7: 01/22/22 04:05 01/22/22 04:05 Labs: Abnormal Lab Results - Last 24 Hours (Table) 01/21/22 01/21/22 01/21/22 Range/Units 02:50 07:08 10:21 MCHC (31.0-37.0) g/dL RDW (11.5-15.5) % Monocytes # (0-1.0) k/uL Sodium (137-145) mmol/L Carbon Dioxide (22-30) mmol/L BUN (7-17) mg/dL Plasma Lactic Acid Binu 5.9 H* (0.7-2.0) mmol/L Calcium (8.4-10.2) mg/dL Total Bilirubin (0.2-1.3) mg/dL AST (14-36) U/L ALT (4-34) U/L Lactate Dehydrogenase 2046 H (313-618) U/L Total Protein 6.1 L (6.3-8.2) g/dL Albumin (3.5-5.0) g/dL Procalcitonin 0.36 H (0.02-0.09) ng/mL Urine Appearance (Clear) Urine Protein (Negative) Urine Ketones (Negative) Urine Blood (Negative) Urine Bilirubin (Negative) Ur Leukocyte Esterase (Negative) Urine RBC (0-5) /hpf Urine WBC (0-5) /hpf Urine WBC Clumps (None) /hpf Ur Squamous Epith Cells (0-4) /hpf Hyaline Casts (0-2) /lpf Urine Mucus (None) /hpf 01/21/22 01/22/22 01/22/22 Range/Units 19:11 04:05 04:05 MCHC 30.0 L (31.0-37.0) g/dL RDW 17.2 H (11.5-15.5) % Monocytes # 1.3 H (0-1.0) k/uL Sodium 132 L (137-145) mmol/L Carbon Dioxide 17 L (22-30) mmol/L BUN 23 H (7-17) mg/dL Plasma Lactic Acid Biun (0.7-2.0) mmol/L Calcium 7.9 L (8.4-10.2) mg/dL Total Bilirubin 2.0 H (0.2-1.3) mg/dL AST 747 H (14-36) U/L ALT 412 H (4-34) U/L Lactate Dehydrogenase (313-618) U/L Total Protein 5.9 L (6.3-8.2) g/dL Albumin 2.9 L (3.5-5.0) g/dL Procalcitonin (0.02-0.09) ng/mL Urine Appearance Turbid H (Clear) Urine Protein 2+ H (Negative) Urine Ketones 1+ H (Negative) Urine Blood Large H (Negative) Urine Bilirubin 1+ H (Negative) Ur Leukocyte Esterase Small H (Negative) Urine RBC >182 H (0-5) /hpf Urine WBC 18 H (0-5) /hpf Urine WBC Clumps Occasional H (None) /hpf Ur Squamous Epith Cells 10 H (0-4) /hpf Hyaline Casts 24 H (0-2) /lpf Urine Mucus Rare H (None) /hpf Microbiology - Last 24 Hours (Table) 01/21/22 17:30 Fungal Culture - Preliminary Pleural Fluid 01/21/22 17:30 Body Fluid Culture - Preliminary Pleural Fluid 01/21/22 15:30 Anaerobic Culture - Preliminary Pleural Fluid 01/21/22 15:30 Acid Fast Bacilli Culture - Preliminary Pleural Fluid 01/21/22 19:11 Urine Culture - Preliminary Urine,Voided 01/19/22 19:23 Blood Culture - Preliminary Blood No Growth after 48 hours 01/19/22 19:16 Blood Culture - Preliminary Blood No Growth after 48 hours - Imaging and Cardiology Chest x-ray: image reviewed Assessment and Plan Assessment: 1. Left-sided chest fluid collection, empyema, status post left-sided until catheter placement by interventional radiology 2. Shortness of breath, chest pain, nonproductive cough, secondary to above 3. Leukocytosis, lactic acidosis present on admission 4. Elevated liver enzymes present on admission 5. 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 02/07/20 6. IV heroin abuse which she stopped only prior to penitentiary term 7. History of hepatitis C 8. Current tobacco dependence 9. History of right hip surgery secondary to MRSA infection 10. Covid infection in November 2021 11. Medical noncompliance with history of multiple times leaving AMA Plan: 1. Will instill alteplase/dornase today through pigtail catheter. Monitor and record drainage. Place pigtail to suction 2. Incentive spirometry ordered and should be encouraged 3. Antibiotic management per infectious disease. Pleural fluid was sent for culture, results pending 4. Increase activity as tolerated 5. Counseling regarding smoking cessation and IV heroin cessation was provided to the patient 6. Continue supportive therapy 7. Medical management of other comorbidities per primary care, pulmonology 8. May transfer out of ICU from thoracic standpoint if okay with other services 9. More recommendations to follow
[2022-01-22] MEDS ORDERED: DORNASE ALFA 5 MG in SODIUM CHLORIDE 0.9% 50 ML IRRIGATION ONE (08:00)
[2022-01-22] MEDS ORDERED: ALTEPLASE 10 MG in SODIUM CHLORIDE 0.9% 50 ML IRRIGATION ONE (08:00)
[2022-01-22] MEDS: ALBUTEROL NEBULIZED 2.5 MG/3 ML INHALATION SCH ×2 (08:23→20:13)
[2022-01-22] MEDS: CEFEPIME 2 GM in SODIUM CHLORIDE 0.9% 100 ML IVPB SCH ×3 (09:12→23:32)
[2022-01-22] MEDS: MULTIVITAMINS, THERA 1 EACH TAB PO SCH (09:12)
[2022-01-22] MEDS: hydroCHLOROthiazide 25 MG TAB PO SCH (09:12)
[2022-01-22] MEDS: ASPIRIN 81 MG PO SCH (09:12)
[2022-01-22] MEDS: BENZONATATE 100 MG CAP PO SCH ×3 (09:12→23:31)
--- NOTE | 2022-01-22 09:54 | XR ---
EXAMINATION TYPE: XR chest 1V portable DATE OF EXAM: 01/22/2022 COMPARISON: Chest x-ray 01/21/2022 HISTORY: Pleural effusion, chest tube TECHNIQUE: Single frontal view of the chest is obtained. FINDINGS: Left-sided anterior pigtail catheter has been placed in the interval. There is interval im proved aeration, residual abnormal density persists. No evident pneumothorax. Heart is not enlarged a lthough the appearance of the chest suggests enlargement due to the epicardial fluid collection. Hina ent is post tricuspid valve replacement. There are overlying leads. IMPRESSION: Interval pigtail catheter placement. There is likely pleural effusion, atelectasis, magdalena elate for pneumonia
[2022-01-22] MEDS: diphenhydrAMINE 25 MG CAP PO PRN (10:27)
--- NOTE | 2022-01-22 10:51 | CT ---
EXAMINATION TYPE: CT chest tube insertion DATE OF EXAM: 01/21/2022 COMPARISON: May 24, 2019 HISTORY: left chest tube insertion possible empyema versus pericardial infected fluid collection CT DLP: 10989 mGycm The procedure is discussed with the patient, the risks, complications, benefits and alternatives, wer e discussed and any questions were answered. Informed consent was obtained. The patient is placed s upine on the CT table, prepped and draped in the usual sterile fashion. Utilizing a 22-gauge Chiba needle access into the fluid collection was achieved with passage of an ol d 0.018 guidewire. There was conversion to an 0.035 system placement of a 7 Samoan drainage catheter. A large portion of the collection was hand aspirated and sample sent to pathology for analysis. All elements of maximal barrier technique were utilized. The patient remained stable throughout the pro cedure with no immediate postprocedural complication. IMPRESSION: 1. Successful CT guided chest tube insertion.
--- NOTE | 2022-01-22 11:17 | P.PN ---
Subjective Progress Note Date: 01/22/22 Principal diagnosis: Left-sided empyema This is a pleasant 31-year-old female patient with a known history of hepatitis C, IV drug abuse with heroin last used 11/03/2021, endocarditis, mitral valve replacement in 2019 at [facility], MRSA and a right hip. Chest has chronic and ongoing tobacco dependence. She also states she had a CoVID infection in November and has been short of breath since that time. She is currently incarcerated. She was brought over from the [place] [facility] with complaints of right-sided chest pain, shortness of breath, cough and congestion. Chest x-ray revealed cardiomediastinal silhouette moderately enlarged. Postsurgical changes with valvular prosthesis. No evidence of pleural effusion. No focal consolidation. No pneumothorax. CT angiogram ruled out pulmonary embolism however there is noted large fluid collection within the anterior medial left pleural space with associated atelectasis. There is suggestion of enhancing pleura. No focal consolidation or pneumothorax. However, the CAT scan was further reviewed and is now being reported as a large fluid collection most likely in the pericardium. Echocardiogram is pending. EKG reveals normal sinus rhythm with nonspecific ST and T wave abnormalities. Ultrasound of the liver revealed cholelithiasis with no definitive evidence for gallbladder wall thickening or. Cholestatic fluid. Liver was within normal limits. White count 9.1. Hemoglobin 12.6. Platelets 334. INR 1.7. D-dimer 8.16. Sodium 131. Potassium 5.1. Bicarb 16. BUN 19. Creatinine 0.63. Lactic acid 5.8, 4.9. AST 360. ALT 183. Troponin negative 1. The patient is seen in consultation in the emergency department. She is awake and alert in no acute distress. She is maintaining good O2 saturations in the mid 90s on room air. She's been afebrile. Slightly tachycardic. Hemodynamically stable. She is still having issues with some right-sided chest discomfort. Some shortness of breath. Nonproductive cough. She was initiated on vancomycin and Zosyn, 0.9 normal saline at 100. Patient was reevaluated today on 01/21/22, remains in the ICU awaiting to be transferred possibly to . I had a long discussion with the radiologist yesterday on multiple occasions and the radiologist is extremely reluctant to consider CT-guided or ultrasound-guided drainage of the fluid collection noted on her initial CT of the chest and chest x-ray. He feels that this is a fluid collection that is in close proximity to the heart, and still believe this may be pericardial fluid or cysts. Possibility of empyema is not entirely ruled out, but according to him this is not a fluid that seems to be consistent with empyema. At any rate him and the cardiothoracic surgery on the case, are extremely reluctant to do any surgical intervention. Hence the recommendation is to transfer the patient to a tertiary care center. Apparently the patient had previous history of MRSA endocarditis with tricuspid valve repair in February of 2020 at [facility], she had history of IV heroin abuse, history of hepatitis C, history of right hip debridement secondary to MRSA infection, history of Covid 19 infection in November of 2021 and history of medical noncompliance, she had multiple episodes of leaving [facility] in the past. I discussed her condition today with the admitting physician Dr. Pineda, and apparently he is in the process according to him of making the transfer take place to . Patient was reevaluated today on 01/22/22, after evaluating the patient yesterday, we discussed with Dr. Rick/interventional radiologist the patient's condition, and he agreed to proceed with CT-guided needle aspiration of the fluid collection in the left pleural space, and if seems to be infected he would proceed with a pigtail catheter placement. Indeed this was done yesterday, and he was able to drain over 700 mL of pus out of the pleural space, he went ahead and placed a pigtail catheter, and connected to Pleur-evac. The fluid is now slightly serosanguineous, was initially purulent. Cultures on the fluid are pending patient in the meantime is receiving vancomycin and cefepime. Based on the final cultures will adjust antibiotics accordingly. Clinically the patient is feeling much better today, breathing a lot easier. She denies any discomfort, she had a follow-up chest x-ray which showed improvement. Patient is doing well with incentive spirometry, she is now on room air and O2 saturation is 94%. WBC count today is 9.9 hemoglobin 13.6 electrolytes are normal renal profile is normal bicarb is a bit low at 17. The Gram stain of the pleural fluid is negative so far, however there is many polymorphonuclear leukocytes, no organisms seen yet. Cultures are pending Objective - Vital Signs Vital signs: Vital Signs Temp 98 F 01/22/22 04:00 Pulse 95 01/22/22 10:00 Resp 22 01/22/22 10:00 BP 93/82 01/22/22 10:00 Pulse Ox 94 L 01/22/22 10:00 FiO2 Intake & Output 01/21/22 01/22/22 01/22/22 18:59 06:59 18:59 Intake Total 1600 1575 100 Output Total 0 406 300 Balance 1600 1169 -200 Weight 76.1 kg Intake: IV 1100 1325 100 0.9 900 1100 100 Cefepime 2 gm In Sodium 200 100 Chloride 0.9% 100 ml @ 25 mls/hr IVPB Q8HR [facility] Rx# :[id number] Vancomycin 1,250 mg In 125 Sodium Chloride 0.9% 250 ml @ 125 mls/hr IVPB Q12H [facility] Rx#:[id number] Intake, IV Titration 250 Amount Vancomycin 1,250 mg In 250 Sodium Chloride 0.9% 250 ml @ 125 mls/hr IVPB Q8H [facility] Rx#:[id number] Oral 500 Output: Chest Tube Drainage 106 Chest Tube Left Posterior 106 Chest Urine 0 300 300 Other: Voiding Method Bedside Commode Bedside Commode Bedside Commode # Voids 1 1 # Bowel Movements 1 - Exam Physical Exam: Revealed a 51-year-old female in no distress, on room air, feels much better today compared to the last couple of days Head: Atraumatic, normocephalic. HEENT:[Neck is supple.] [No neck masses.] [No thyromegaly.] [No JVD.] Chest: [Clear throughout, no crackles, no rhonchi, no wheezes.] Pigtail catheter noted just below the left breast anteriorly Cardiac Exam: [Normal S1 and S2, no S3 gallop, no murmur.] Abdomen: [Soft, nontender, no megaly, no rebound, no guarding, normal bowel sounds.] Extremities: [No clubbing, no edema, no cyanosis.] Neurological Exam: [No focal neurologic deficit.] Alert oriented 3. Psychiatric: Normal mood affect and normal mental status examination. Skin: No rashes. - Labs CBC & Chem 7: 01/22/22 04:05 01/22/22 04:05 Labs: Abnormal Lab Results - Last 24 Hours (Table) 01/21/22 01/21/22 01/22/22 Range/Units 10:21 19:11 04:05 MCHC (31.0-37.0) g/dL RDW (11.5-15.5) % Monocytes # (0-1.0) k/uL Sodium 132 L (137-145) mmol/L Carbon Dioxide 17 L (22-30) mmol/L BUN 23 H (7-17) mg/dL Calcium 7.9 L (8.4-10.2) mg/dL Total Bilirubin 2.0 H (0.2-1.3) mg/dL AST 747 H (14-36) U/L ALT 412 H (4-34) U/L Lactate Dehydrogenase 2046 H (313-618) U/L Total Protein 6.1 L 5.9 L (6.3-8.2) g/dL Albumin 2.9 L (3.5-5.0) g/dL Urine Appearance Turbid H (Clear) Urine Protein 2+ H (Negative) Urine Ketones 1+ H (Negative) Urine Blood Large H (Negative) Urine Bilirubin 1+ H (Negative) Ur Leukocyte Esterase Small H (Negative) Urine RBC >182 H (0-5) /hpf Urine WBC 18 H (0-5) /hpf Urine WBC Clumps Occasional H (None) /hpf Ur Squamous Epith Cells 10 H (0-4) /hpf Hyaline Casts 24 H (0-2) /lpf Urine Mucus Rare H (None) /hpf 01/22/22 Range/Units 04:05 MCHC 30.0 L (31.0-37.0) g/dL RDW 17.2 H (11.5-15.5) % Monocytes # 1.3 H (0-1.0) k/uL Sodium (137-145) mmol/L Carbon Dioxide (22-30) mmol/L BUN (7-17) mg/dL Calcium (8.4-10.2) mg/dL Total Bilirubin (0.2-1.3) mg/dL AST (14-36) U/L ALT (4-34) U/L Lactate Dehydrogenase (313-618) U/L Total Protein (6.3-8.2) g/dL Albumin (3.5-5.0) g/dL Urine Appearance (Clear) Urine Protein (Negative) Urine Ketones (Negative) Urine Blood (Negative) Urine Bilirubin (Negative) Ur Leukocyte Esterase (Negative) Urine RBC (0-5) /hpf Urine WBC (0-5) /hpf Urine WBC Clumps (None) /hpf Ur Squamous Epith Cells (0-4) /hpf Hyaline Casts (0-2) /lpf Urine Mucus (None) /hpf Microbiology - Last 24 Hours (Table) 01/21/22 20:21 Sputum Culture - Preliminary Sputum 01/21/22 20:21 Fungal Culture - Preliminary Aspirate 01/21/22 20:21 Acid Fast Bacilli Culture - Preliminary Aspirate 01/21/22 17:30 Gram Stain - Preliminary Pleural Fluid Body Fluid Culture - Preliminary 01/21/22 17:30 Fungal Culture - Preliminary Pleural Fluid 01/21/22 15:30 Anaerobic Culture - Preliminary Pleural Fluid 01/21/22 15:30 Acid Fast Bacilli Culture - Preliminary Pleural Fluid 01/21/22 19:11 Urine Culture - Preliminary Urine,Voided 01/19/22 19:23 Blood Culture - Preliminary Blood No Growth after 48 hours 01/19/22 19:16 Blood Culture - Preliminary Blood No Growth after 48 hours Assessment and Plan Assessment: Impression: Left-sided empyema, status post pigtail catheter placement by interventional radiology on 01/21/22. Multiple comorbidities including history of bacterial endocarditis and tricuspid valve repair, history of heroin abuse, history of hepatitis C, and history of MR SA involving her right hip. Recommendation: Continue antibiotics, adjust based on the final culture from the empyema. Continue pigtail catheter connection to pleural VAC and continue low intermitten t suction. Thoracic surgery to instill alteplase in the pleural space for lysis of loculations from empyema. Can transfer patient to regular medical floor today. Patient will eventually need a PICC line, and possibly long-term treatment with IV antibiotics. We will arrange for PICC line placement in the next 24 hours Time with Patient: Less than 30
[2022-01-22] MEDS ORDERED: LIDOCAINE 1% INJ 10MG/ML (30 ML VIAL-PF) SQ ONE (14:11)
--- NOTE | 2022-01-22 14:20 | CT ---
EXAMINATION TYPE: CT abdomen pelvis wo con CT DLP: 519.4 mGycm, Automated exposure control for dose reduction was used. DATE OF EXAM: 01/22/2022 1:54 PM COMPARISON: CT chest chest tube insertion 01/21/2022, CTA 01/19/2022 CLINICAL INDICATION:Female, 31 years old with history of abdominal swelling, elevated LFT's; Abdomina l swelling, elevated LFT's and swelling in her legs TECHNIQUE: Standard CT of the abdomen and pelvis without IV or oral contrast. Lack of IV or oral co ntrast limits evaluation of solid and hollow organ viscera. Coronal and sagittal reformats were perfo rmed. FINDINGS: LOWER CHEST: Small bilateral pleural effusions with associated atelectasis. Pigtail drainage catheter identified in the left medial lower pleural space collection with a few foci of gas. Left basilar pa tchy consolidation is slightly increased. Postsurgical changes of the heart. ABDOMEN LIVER: Subtle nodular contour to the liver with widened fissures. GALLBLADDER AND BILE DUCTS: Contracted gallbladder. No biliary duct dilatation. PANCREAS: Grossly unremarkable noncontrast appearance. SPLEEN: Unremarkable noncontrast appearance. ADRENAL GLANDS: Unremarkable noncontrast appearance. KIDNEYS AND URETERS: No hydronephrosis or renal calculi. Subtle enlargement of the right kidney with perinephric fat stranding. PELVIS BLADDER: Grossly unremarkable noncontrast appearance. REPRODUCTIVE: Normal noncontrast appearance. ABDOMEN & PELVIS STOMACH AND BOWEL: Stomach and duodenum are unremarkable. No focal wall thickening. The appendix is w ithin normal limits. No evidence of bowel obstruction. PERITONEUM: No evidence of pneumoperitoneum. Mesenteric congestion. Small volume ascites throughout t he abdomen and pelvis. VASCULATURE: No evidence of aortic aneurysm. MUSCULOSKELETAL: No acute osseous abnormalities LYMPH NODES: No gross evidence for lymphadenopathy. SOFT TISSUE/ABDOMINAL WALL: Diffuse anasarca. Tiny ventral epigastric abdominal wall fat filled herni a. Multiple surgical clips in the right groin. IMPRESSION: 1. Mildly enlarged right kidney compared to the left with subtle fat stranding. This could be seen w ith pyelonephritis. No obstructing calculus. 2. Diffuse anasarca with small volume ascites and mesenteric congestion suggesting fluid overload sta te. 3. Small bilateral pleural effusions with pigtail drainage catheter in the left medial pleural space collection. 4. Patchy consolidation within the left lower lobe which may represent atelectasis versus infiltrate. 5. Subtle nodular contour to the liver which raises concern for cirrhosis. Correlation with liver fun ction tests is recommended.
--- NOTE | 2022-01-22 14:30 | XR ---
EXAMINATION TYPE: XR chest 1V portable DATE OF EXAM: 01/22/2022 COMPARISON: Chest x-ray dated 01/22/2022 and earlier time HISTORY: PICC line placement TECHNIQUE: Single frontal view of the chest is obtained. FINDINGS: There has been interval placement of a left-sided PICC line, distal tip is coiled. No othe r significant interval change. IMPRESSION: PICC line placement as described
--- NOTE | 2022-01-22 15:01 | XR ---
EXAMINATION TYPE: XR chest 1V portable DATE OF EXAM: 01/22/2022 COMPARISON: Chest x-ray same dated earlier time HISTORY: PICC line repositioned TECHNIQUE: Single frontal view of the chest is obtained. FINDINGS: There is been interval repositioning of the PICC line, distal tip is in the right atrium. No other significant interval change. IMPRESSION: Interval repositioning of patient's PICC line. Of note the PICC line was withdrawn 4 to 5 cm following this x-ray
[2022-01-22] MEDS: FERROUS SULFATE 325 MG TAB PO SCH (20:29)
[2022-01-22] MEDS: FUROSEMIDE 10 MG/ML 2 ML VIAL IV SCH (20:29)
--- NOTE | 2022-01-22 23:31 | PN ---
PROGRESS NOTE SUBJECTIVE: She has a possible empyema in the anterior left lung around the heart. She is on cefepime. She is on potassium replacement protocol, Protonix, vancomycin. She had a chest tube insertion per Dr. Rick today as there was no promising transfer opportunity to another tertiary center. No evidence of a pleural effusion. No PE. CT scan was reviewed. 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 History of hepatitis C, IV heroin, right hip debridement secondary to MRSA, COVID-19, noncompliance, AMA from [facility] in the past. OBJECTIVE: VITAL SIGNS: Temp 96.2, pulse 108, respiratory rate 18 to 22, blood pressure 114/80s, O2 of 94% on 2 L. GENERAL: A 31-year-old white female, in no acute distress. HEAD: Normocephalic, atraumatic. LUNGS: Essentially clear. CARDIOVASCULAR: S1, S2. No murmurs, rubs, or gallops. ABDOMEN: Soft, nontender. EXTREMITIES: No edema. ENDOCRINE: BMI is over 40. LABS: Sodium 129, potassium 3.9, BUN is 22, creatinine 0.59. White count 9.1, glucose 127, calcium 8.1, total bilirubin is 2.5, AST is 579, ALT 268. ASSESSMENT: Fluid collection in left chest, probable empyema. Surgical drainage with Dr. Rick today with tube placement. Continue broad-spectrum antibiotics. Electrolyte replacement. Cardiology involved. Please see empiric antibiotics. Wait for Dr. Martines's recommendations. ICU care. MMODL / IJN: [id number] /
[2022-01-23] MEDS: diphenhydrAMINE 25 MG CAP PO PRN (01:33)
--- NOTE | 2022-01-23 01:34 | PN ---
PROGRESS NOTE SUBJECTIVE: A 31-year-old lady with history of infective endocarditis, is admitted to hospital with left-sided pleural effusion. 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 The patient had a catheter placement into the pleural space and is receiving lytics and she is feeling much better this morning. More than 600 mL of purulent material had been removed. OBJECTIVE: GENERAL: She is comfortable at rest. VITAL SIGNS: Stable. CHEST: Shows diminished air entry at the left base. HEART: Reveals first and second heart sounds. Systolic murmur at the left lower sternal border. ABDOMEN: Soft. EXTREMITIES: Did not reveal any edema. Peripheral pulses are palpable. LABS: Have been reviewed. ASSESSMENT: 1. Empyema of the left side. 2. History of infective endocarditis. PLAN: The patient had catheter placement into the left pleural space. It is much improved. MMODL / IJN: [id number] /
[2022-01-23] MEDS ORDERED: VANCOMYCIN TROUGH DUE 1 EACH MISC MISCELLANE ONE (05:00)
[2022-01-23] MEDS: PANTOPRAZOLE 40 MG TABLET PO SCH (07:32)
[2022-01-23] MEDS: CEFEPIME 2 GM in SODIUM CHLORIDE 0.9% 100 ML IVPB SCH (07:32)
[2022-01-23] MEDS: VANCOMYCIN 1,000 MG in SODIUM CHLORIDE 0.9% 250 ML IVPB SCH ×2 (07:34→20:49)
--- NOTE | 2022-01-23 07:38 | XR ---
EXAMINATION TYPE: XR chest 1V portable DATE OF EXAM: 01/23/2022 6:48 AM COMPARISON: Chest radiograph from one day prior. TECHNIQUE: XR chest 1V portable Frontal view of the chest. CLINICAL INDICATION:Female, 31 years old with history of empyema; FINDINGS: Lungs/Pleura: There is blunting of the left costophrenic angle is unchanged with some atelectasis kar nges versus airspace disease. Pulmonary vascularity: Unremarkable. Heart/mediastinum: Cardiomediastinal silhouette is unremarkable. Postsurgical changes to the heart. Musculoskeletal: No acute osseous pathology. Other: Surgical changes noted to the heart. Lines/Tubes: Left-sided PICC with distal tip at the superior vena cava in stable position. Pigtail catheter within the pericardium is in unchanged position. IMPRESSION: 1. Left PICC in similar position. 2. Low lung volumes with some atelectasis changes in the left lung as seen on prior's. 3. Pigtail catheter within the suspected pericardium is in stable position.
[2022-01-23] MEDS: ALBUTEROL NEBULIZED 2.5 MG/3 ML INHALATION SCH ×2 (08:13→19:22)
[2022-01-23 09:07] LABS: Anisocytosis Slight; Basophils % (A) 0 %; Eosinophils # (A) 0.1 k/uL (0-0.7); Eosinophils % (A) 1 %; HCT 42.5 % (34.0-46.0); HGB 13.1 gm/dL (11.4-16.0); Hypochromasia Marked; Lymphocytes % (A) 10 %; MCH 26.4 pg (25.0-35.0); MCHC 30.9 g/dL (31.0-37.0); MCV 85.5 fL (80.0-100.0); Mean Platelet Volume 8.6; Monocytes # (A) 0.8 k/uL (0-1.0); Monocytes % (A) 8 %; Neutrophils # (A) 7.9 k/uL (1.3-7.7); Neutrophils % (A) 80 %; Platelet Count 144 k/uL (150-450); Poikilocytosis Slight; RBC 4.97 m/uL (3.80-5.40); RDW 18.2 % (11.5-15.5); WBC 9.8 k/uL (3.8-10.6)
--- NOTE | 2022-01-23 09:07 | P.PN ---
Subjective Progress Note Date: 01/23/22 Principal diagnosis: Left-sided chest fluid collection, empyema, shortness of breath, chest pain, nonproductive cough, leukocytosis, lactic acidosis, elevated liver enzymes present on admission. 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 The patient was seen and examined in follow-up today 01/23/2022 at her bedside on the fourth floor medical surgical unit. Currently she is sitting up in bed, is awake, alert, oriented 3 and is in no acute distress. She is tolerating oral intake and is currently eating her breakfast. She denies any complaints of shortness of breath or pain at this time. Left-sided chest pigtail catheter remains in place to low continuous wall suction -20 cm H2O. No air leak is present. She received a pleural instillation dose of alteplase/dornase yesterday with 400 mL of cloudy serosanguineous output in the last 24 hours. She reports she continues to feel better on a daily basis. Left arm PICC line remains in place and she is receiving cefepime and vancomycin for antibiotic coverage which is managed by infectious disease. The pleural fluid Gram stain came back positive for presumptive MRSA. Oxygen saturations are 95% on room air and she is achieving 500-750 mL on her incentive spirometry with encouragement. She has been afebrile last 24 hours. Objective - Vital Signs Vital signs: Vital Signs Temp 97.3 F L 01/23/22 07:49 Pulse 96 01/23/22 08:22 Resp 17 01/23/22 07:49 BP 91/39 01/23/22 07:49 Pulse Ox 99 01/23/22 07:49 FiO2 Intake & Output 01/22/22 01/23/22 01/23/22 18:59 06:59 18:59 Intake Total 900 530 Output Total 500 750 Balance 400 -220 Intake: IV 100 250 0.9 100 Vancomycin 1,250 mg In 250 Sodium Chloride 0.9% 250 ml @ 125 mls/hr IVPB Q12H LURDES Rx#:[id number] Oral 800 280 Output: Chest Tube Drainage 450 Chest Tube Left Posterior 450 Chest Urine 500 300 Other: Voiding Method Bedside Commode Bedside Commode # Voids 0 1 - Exam CONSTITUTIONAL: Appears comfortable, cooperative, no acute distress RESPIRATORY: Lungs sounds diminished bilaterally. Respirations are symmetrical, nonlabored. Currently on room air with oxygen saturation 95%. Strong nonproductive cough. CARDIOVASCULAR: S1, S2 present. Regular rate and rhythm, sinus rhythm on telemetry. Palpable peripheral pulses bilaterally. No edema present. GASTROINTESTINAL: Abdomen soft, nontender, nondistended. Active bowel sounds present 4 quadrants. Tolerating diet. GENITOURINARY: Continues to void. INTEGUMENTARY: Skin is warm and dry. Dressing clean, dry and intact to her left chest pigtail catheter. NEUROLOGIC: Cranial nerves II through XII intact MUSKULOSKELETAL: Able to move all extremities, strength equal bilaterally PSYCHIATRIC: Alert and oriented to person place and time, appropriate affect, intact judgment and insight INVASIVE LINES AND TUBES: Left pigtail catheter present to low continuous wall suction -20 cm H2O, no air leaks present, 400 mL of cloudy serosanguineous drainage output in the last 24 hours. Left arm PICC line remains in place. - Allied health notes Allied health notes reviewed: nursing - Labs CBC & Chem 7: 01/22/22 04:05 01/22/22 04:05 Labs: Microbiology - Last 24 Hours (Table) 01/21/22 20:21 Gram Stain - Preliminary Sputum Sputum Culture - Preliminary 01/21/22 15:30 Acid Fast Bacilli Smear - Final Pleural Fluid Acid Fast Bacilli Culture - Preliminary 01/21/22 17:30 Gram Stain - Preliminary Pleural Fluid Body Fluid Culture - Preliminary Presumptive MRSA 01/19/22 19:23 Blood Culture - Preliminary Blood No Growth after 72 hours 01/19/22 19:16 Blood Culture - Preliminary Blood No Growth after 72 hours 01/21/22 19:11 Urine Culture - Final Urine,Voided 01/21/22 20:21 Fungal Culture - Preliminary Aspirate 01/21/22 20:21 Acid Fast Bacilli Culture - Preliminary Aspirate - Imaging and Cardiology Chest x-ray: report reviewed, image reviewed Assessment and Plan Assessment: 1. Left-sided chest fluid collection, empyema, status post left-sided pigtail catheter placement by interventional radiology, Gram stain from the pleural fluid shows presumptive MRSA 2. Shortness of breath, chest pain, nonproductive cough, secondary to above 3. Leukocytosis, lactic acidosis present on admission 4. Elevated liver enzymes present on admission 5. 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 IV heroin abuse which she stopped only prior to retirement term 7. History of hepatitis C 8. Chronic ongoing tobacco dependence 9. History of right hip surgery secondary to MRSA infection 10. Covid infection in November 2021 11. Medical noncompliance with history of multiple times leaving AMA Plan: 1. Will instill alteplase/dornase today through pigtail catheter which will be a total of 2 doses administered. Monitor and record drainage. Keep left chest pigtail catheter to low continuous wall suction -20 cm H2O. 2. Encourage Incentive spirometry use 10 times every hour while awake. 3. Antibiotic management per infectious disease. Pleural fluid was sent for culture, Gram stain positive for presumptive MRSA. 4. Increase activity as tolerated. Out of bed for all meals. 5. Discussed the importance of risk modification, counseling regarding smoking cessation and IV heroin cessation was provided to the patient. 6. Continue supportive therapy. 7. Medical management of other comorbidities per primary care, pulmonology and infectious disease. 8. Continue to monitor daily chest x-rays. 9. More recommendations to follow based on patient's clinical course. Time with Patient: Greater than 30
[2022-01-23 09:10] LABS: ALT 285 U/L (4-34); AST 296 U/L (14-36); African American GFR (CKD) >90 (>60 ml/min/1.73 sqM); Albumin 2.5 g/dL (3.5-5.0); Alkaline Phosphatase 100 U/L (38-126); Anion Gap 9 mmol/L; Blood Urea Nitrogen 18 mg/dL (7-17); Calcium 7.6 mg/dL (8.4-10.2); Carbon Dioxide 16 mmol/L (22-30); Chloride 105 mmol/L (98-107); Glucose 116 mg/dL (74-99); Non-African American GFR(CKD) >90 (>60 ml/min/1.73 sqM); Sodium 130 mmol/L (137-145); Total Bilirubin 1.8 mg/dL (0.2-1.3); Total Protein 5.4 g/dL (6.3-8.2)
[2022-01-23 09:17] LABS: Potassium 3.6 mmol/L (3.5-5.1)
--- NOTE | 2022-01-23 09:29 | P.PN ---
Subjective This is a 31-year-old female with a past medical history of IV heroin abuse, bacterial endocarditis with mitral valve surgery in January 2020 at [facility], hepatitis C, current tobacco dependence, right hip surgery secondary to MRSA infection, and covid infection in November 2021. She presented to the ER with complaints of shortness of breath, chest pain, cough. CT chest revealed no evidence of pulmonary embolism, but revealed left anterior medial fluid collection favored to be within the pleural space with an enhancing pleural concerning for empyema. Rightward shift of the mediastinum/heart. Cardiology was consulted concerning for pericardial effusion. Echocardiogram was reviewed which revealed EF 5560 percent, large pleural effusion compressing mainly on the left lateral wall, does not appear to have a significant pericardial effusion. On 01/21 patient underwent placement of left sided pigtail catheter by interventional radiology with removal of 660 mL purulent drainage. She was transferred out of the ICU on 01/22. Patient seen and examined this morning, sitting up in bed. Her vital signs are stable, she continues to have some shortness in some discomfort at her chest tube site. She also is complaining of edema in her bilateral thigh and buttocks region. Other swanson no other concerns. 450mL chest tube with serosanguineous output documented. Labs: Sodium 1:30, potassium 3.6, BUN 18, serum creatinine 0.6, AST 296 (747 yesterday), ALT 285 (412 yesterday) Meds: Aspirin 81 mg daily, IV cefepime, IV vancomycin, IV Lasix 20 mg daily GENERAL: Well-appearing, In no acute distress. NECK: Supple without JVD LUNGS: Breath sounds clear to auscultation bilaterally. Respiration equal and unlabored. No wheezes, rales or rhonchi. HEART: Regular rate and rhythm without murmurs, rubs or gallops. S1 and S2 heard. EXTREMITIES: Normal range of motion,Moderate edema bilateral thighs and buttocks. Left arm PICC line. No clubbing or cyanosis. Peripheral pulses intact. 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 Please reconsult if needed. Nurse Practitioner note has been reviewed, I agree with a documented findings and plan of care. Patient was seen and examined. Objective - Vital Signs Vital signs: Vital Signs Temp 97.3 F L 01/23/22 07:49 Pulse 96 01/23/22 08:22 Resp 17 01/23/22 07:49 BP 91/39 01/23/22 07:49 Pulse Ox 99 01/23/22 07:49 FiO2 Intake & Output 01/22/22 01/23/22 01/23/22 18:59 06:59 18:59 Intake Total 900 530 Output Total 500 750 Balance 400 -220 Intake: IV 100 250 0.9 100 Vancomycin 1,250 mg In 250 Sodium Chloride 0.9% 250 ml @ 125 mls/hr IVPB Q12H LURDES Rx#:[id number] Oral 800 280 Output: Chest Tube Drainage 450 Chest Tube Left Posterior 450 Chest Urine 500 300 Other: Voiding Method Bedside Commode Bedside Commode # Voids 0 1 - Labs CBC & Chem 7: 01/23/22 08:29 01/23/22 08:34 Labs: Abnormal Lab Results - Last 24 Hours (Table) 01/23/22 01/23/22 Range/Units 08:29 08:34 MCHC 30.9 L (31.0-37.0) g/dL RDW 18.2 H (11.5-15.5) % Plt Count 144 L (150-450) k/uL Neutrophils # 7.9 H (1.3-7.7) k/uL Sodium 130 L (137-145) mmol/L Carbon Dioxide 16 L (22-30) mmol/L BUN 18 H (7-17) mg/dL Glucose 116 H (74-99) mg/dL Calcium 7.6 L (8.4-10.2) mg/dL Total Bilirubin 1.8 H (0.2-1.3) mg/dL AST 296 H (14-36) U/L ALT 285 H (4-34) U/L Total Protein 5.4 L (6.3-8.2) g/dL Albumin 2.5 L (3.5-5.0) g/dL Microbiology - Last 24 Hours (Table) 01/21/22 20:21 Gram Stain - Preliminary Sputum Sputum Culture - Preliminary 01/21/22 15:30 Acid Fast Bacilli Smear - Final Pleural Fluid Acid Fast Bacilli Culture - Preliminary 01/21/22 17:30 Gram Stain - Preliminary Pleural Fluid Body Fluid Culture - Preliminary Presumptive MRSA 01/19/22 19:23 Blood Culture - Preliminary Blood No Growth after 72 hours 01/19/22 19:16 Blood Culture - Preliminary Blood No Growth after 72 hours 01/21/22 19:11 Urine Culture - Final Urine,Voided 01/21/22 20:21 Fungal Culture - Preliminary Aspirate 01/21/22 20:21 Acid Fast Bacilli Culture - Preliminary Aspirate
[2022-01-23] MEDS ORDERED: DORNASE ALFA 5 MG in SODIUM CHLORIDE 0.9% 50 ML IRRIGATION ONE (09:30)
[2022-01-23] MEDS ORDERED: ALTEPLASE 10 MG in SODIUM CHLORIDE 0.9% 50 ML IRRIGATION ONE (09:30)
[2022-01-23] MEDS: HYDROcodone/APAP 5-325MG 1 EACH TAB PO PRN ×2 (09:43→17:29)
[2022-01-23] MEDS: MULTIVITAMINS, THERA 1 EACH TAB PO SCH (09:44)
[2022-01-23] MEDS: FUROSEMIDE 10 MG/ML 2 ML VIAL IV SCH (09:45)
[2022-01-23] MEDS: ASPIRIN 81 MG PO SCH (09:45)
[2022-01-23] MEDS: BENZONATATE 100 MG CAP PO SCH ×3 (09:45→20:51)
--- NOTE | 2022-01-23 09:56 | IR ---
EXAMINATION TYPE: IR cvc insert >=5 years DATE OF EXAM: 01/23/2022 COMPARISON: NONE HISTORY: Empyema FINDINGS: Maximal barrier technique was utilized. Hand hygiene obtained with soap and water and alco hol-based hand rub. The skin overlying the left basilic vein was localized with ultrasound and noted to be compressible and patent by ultrasound. An ultrasound image [facility] Sterile technique utilized with the ultrasound machine. The skin overlying was prepped an d draped and Lidocaine used for local anesthesia. A skin jaskaran was made with a scalpel. Access was g ained to the vein under direct ultrasound guidance with a 21-gauge needle and a 0.018 inch wire was a dvanced. Access site was dilated with a peel-away sheath and the catheter tailored to length. Damaris ter advanced centrally and a post procedure chest x-ray verified placement with the tip folded, the c atheter was repositioned and subsequent image shows the catheter tip in the right atrium, catheter wa s withdrawn 5 cm and follow-up chest x-ray shows the catheter with tip at the superior vena cava. Ca theter was fixed to the skin and a sterile dressing placed. Hemostasis achieved and the catheter was aspirated and flushed with sterile saline. The patient remained in stable condition. IMPRESSION: STATUS POST ULTRASOUND GUIDED PICC LINE PLACEMENT, READY FOR USE. THIS PROCEDURE WAS PER FORMED BY THE UNDERSIGNED.
--- NOTE | 2022-01-23 09:58 | P.CONS ---
History of Present Illness - Reason for Consult Consult date: 01/23/22 Cirrhosis of the liver Requesting physician: Saroj Pineda - Chief Complaint Shortness of breath, empyema - History of Present Illness This is a pleasant 31-year-old female patient with a known history of hepatitis C, IV drug abuse with heroin last used 11/03/2021, endocarditis, mitral valve replacement in 2019 at [facility], [facility] and a right hip. She has chronic and ongoing tobacco dependence. She also states she had a CoVID infection in November and has been short of breath since that time. She is currently incarcerated. She was brought over from the nursing home with complaints of right-sided chest pain, shortness of breath, cough and congestion. Chest x-ray revealed cardiomediastinal silhouette moderately enlarged. Postsurgical changes with valvular prosthesis. No evidence of pleural effusion. No focal consolidation. No pneumothorax. CT angiogram ruled out pulmonary embolism however there is noted large fluid collection within the anterior medial left pleural space with associated atelectasis. There is suggestion of enhancing pleura. No focal c onsolidation or pneumothorax. However, the CAT scan was further reviewed and is now being reported as a large fluid collection most likely in the pericardium. I 8 yesterday the patient underwent a CT-guided needle aspiration of fluid collection with interventional radiology of the left pleural space was 700 mL of pus drained out, pigtail catheter and Pleur-evac were placed. Presented with elevated LFTs consistent with hepatocellular disease however they have continued to increase so gastroenterology was consulted. Patient states that she really has not been following with anyone this she's been incarcerated over the last one years duration. She was diagnosed with hepatitis C and 2017 and treated with her bony, at that time she had seen Dr. Martines from infectious disease. She states that she continued to use hair when was shared needles and is now reinfected. She states her breathing is better, she states she does have some abdominal discomfort and swelling. On admission patient was noted to have total bilirubin 3.0 AST 360 ALT 183 alkaline phosphatase 105, there was some fluct uation in her labs and yesterday her total bilirubin was 2.0 AST 747 ALT 412 alkaline phosphatase 87. Repeat labs today are showing that they are trending down with total bilirubin 1.8 AST 296 ALT [address] abdomen and pelvis without contrast reports mildly enlarged right kidney compared to the left with subcu fat stranding. This could be seen with pyelonephritis. No obstructing calculus. Diffuse anasarca with small volume ascites and mesenteric congestion suggesting fluid overload state. Small bilateral pleural effusion with pigtail drainage catheter in the left medial pleural space collection. Patchy consolidation within the left lower lobe which may represent atelectasis versus infiltrate. Subtle nodular contour to the liver which raises concern for cirrhosis. Correlation with liver function tests recommended. Review of Systems REVIEW OF SYSTEMS: CARDIOPULMONARY: No chest pain. Shortness of breath, now improved. Patient has a pigtail catheter left pleural space with Pleur-evac. Gastrointestinal: No abdominal pain, anasarca. No nausea or vomiting. No hematemesis, coffee-ground emesis. No rectal bleeding, or melena. GENITOURINARY: No dysuria or hematuria. MUSCULOSKELETAL: Reports normal range of motion. SKIN: No rashes. No jaundice. ENDOCRINE: No chills, fevers. No excessive weight gain or loss. No polydipsia or polyuria. PSYCHIATRIC: Unremarkable. NEUROLOGY: No change in mental status. Denies dizziness, headache. ENT: Vision unremarkable. CONSTITUTIONAL: Fevers chills. Past Medical History Past Medical History: No Reported History Additional Past Medical History / Comment(s): Hep C, endocarditis History of Any Multi-Drug Resistant Organisms: MRSA Year Discovered:: 2019 MDRO Source:: blood, hip bone Past Surgical History: Orthopedic Surgery Additional Past Surgical History / Comment(s): Mitral valve replaced 01/2020 at [facility], Right hip sx r/t to MRSA Past Anesthesia/Blood Transfusion Reactions: No Reported Reaction Past Psychological History: No Psychological Hx Reported Smoking Status: Current every day smoker Past Alcohol Use History: None Reported Past Drug Use History: Heroin - Past Family History Mother Family Medical History: No Reported History Father Family Medical History: No Reported History Medications and Allergies Home Medications Medication Instructions Recorded Confirmed Type Albuterol Nebulized [Ventolin 2.5 mg INHALATION RT-BID 01/19/22 01/19/22 History Nebulized] Aspirin EC [Ecotrin Low Dose] 81 mg PO DAILY 01/19/22 01/19/22 History Ensure 1 can PO DAILY 01/19/22 01/19/22 History Ferrous Sulfate [Feosol] 325 mg PO HS 01/19/22 01/19/22 History Metoprolol Tartrate [Lopressor] 12.5 mg PO BID 01/19/22 01/19/22 History Multivit/Iron Sulf/Folic Acid 1 tab PO DAILY 01/19/22 01/19/22 History [Multivitamin with Iron] Omeprazole 20 mg PO DAILY 01/19/22 01/19/22 History hydroCHLOROthiazide [Hydrodiuril] 25 mg PO DAILY 01/19/22 01/19/22 History Allergies Allergy/AdvReac Type Severity Reaction Status Date / Time metoprolol [From Lopressor] AdvReac "Doesn't Verified 01/19/22 17:17 feel well" Physical Exam Vitals: Vital Signs Temp Pulse Pulse Resp BP BP Pulse Ox 01/23/22 04:01 18 01/23/22 01:28 97.5 F L 103 H 16 95/72 95 01/23/22 00:00 19 01/22/22 20:22 87 01/22/22 20:13 85 01/22/22 20:00 102 H 19 01/22/22 16:00 96 14 01/22/22 13:02 97.7 F 96 14 99/74 96 01/22/22 10:00 95 22 93/82 94 L 01/22/22 08:33 93 01/22/22 08:25 99 01/22/22 08:24 91 01/22/22 08:00 87 16 102/89 97 Intake and Output 01/22/22 01/23/22 01/23/22 22:59 06:59 14:59 Intake Total 830 Output Total 530 440 Balance 300 -440 Intake: IV 250 Vancomycin 1,250 mg In 250 Sodium Chloride 0.9% 250 ml @ 125 mls/hr IVPB Q12H [facility] Rx#:[id number] Oral 580 Output: Chest Tube Drainage 30 440 Chest Tube Left Posterior 30 440 Chest Urine 500 Other: Voiding Method Bedside Commode Bedside Commode # Voids 1 1 General appearance: The patient is alert, oriented, appears in no acute distress. HET: Head is normocephalic and atraumatic. Conjunctiva pink. Sclera anicteric. Neck: Supple without lymphadenopathy. Trachea midline. Heart: S1 S2. Regular rate and rhythm. Lungs: Clear to auscultation. Abdomen: Soft, nontender, anasarca, nondistended with bowel sounds. No guarding or rigidity. Skin: No rashes. No jaundice. Extremities: Normal skin color and turgor. Lower extremity edema. Neurological: No focal deficits. Alert and oriented x3. Results CBC & Chem 7: 01/23/22 08:29 01/23/22 08:34 Labs: Microbiology - Last 24 Hours (Table) 01/21/22 15:30 Acid Fast Bacilli Smear - Final Pleural Fluid Acid Fast Bacilli Culture - Preliminary 01/21/22 17:30 Gram Stain - Preliminary Pleural Fluid Body Fluid Culture - Preliminary Presumptive MRSA 01/19/22 19:23 Blood Culture - Preliminary Blood No Growth after 72 hours 01/19/22 19:16 Blood Culture - Preliminary Blood No Growth after 72 hours 01/21/22 19:11 Urine Culture - Final Urine,Voided 01/21/22 20:21 Sputum Culture - Preliminary Sputum 01/21/22 20:21 Fungal Culture - Preliminary Aspirate 01/21/22 20:21 Acid Fast Bacilli Culture - Preliminary Aspirate Comments: CT abdomen and pelvis without contrast reports mildly enlarged right kidney c ompared to the left with subcu fat stranding. This could be seen with pyelonephritis. No obstructing calculus. Diffuse anasarca with small volume ascites and mesenteric congestion suggesting fluid overload state. Small bilateral pleural effusion with pigtail drainage catheter in the left medial pleural space collection. Patchy consolidation within the left lower lobe which may represent atelectasis versus infiltrate. Subtle nodular contour to the liver which raises concern for cirrhosis. Correlation with liver function tests recommended. Assessment and Plan (1) Cirrhosis of liver Narrative/Plan: 31-year-old female with a significant history of IV drug abuse last used in November of this year. Patient diagnosed with hepatitis C in 2017 at that time she was seen by Dr. Gerardo Ram given hard bony. Patient states she's been reinfected due to continued heroin use and sharing of needles. gastroenterology consulted for elevated LFTs. LFTs are consistent with underlying cirrhosis of the liver however have markedly gone up throughout her stay. Likely related to sepsis and possible superimposed medication induced hepatitis. LFTs are now trending down. Of course patient will need outpatient follow-up with either infectious disease or gastroenterology for hepatitis C treatment. We'll proceed with a hepatitis panel and serology. Current Visit: Yes Status: Acute Code(s): K74.60 - UNSPECIFIED CIRRHOSIS OF LIVER SNOMED Code(s): 09414470 (2) Hepatitis C Current Visit: Yes Status: Acute Code(s): B19.20 - UNSPECIFIED VIRAL HEPATITIS C WITHOUT HEPATIC COMA SNOMED Code(s): 06049994 (3) Empyema Current Visit: Yes Status: Acute Code(s): J86.9 - PYOTHORAX WITHOUT FISTULA SNOMED Code(s): 853047416 (4) Sepsis Current Visit: Yes Status: Acute Code(s): A41.9 - SEPSIS, UNSPECIFIED ORGANISM SNOMED Code(s): 92596198 Plan: 1. Continue supportive care 2. Avoid hepatotoxic medications 3. Daily CMP 4. Hepatitis serologies ordered, hepatitis C RNA and genotype ordered 5. Patient to follow-up with the infectious disease or gastroenterology outpatient for hepatitis C treatment Thank you for allowing us to participate in the care of the patient, the GI service will sign off, gastroenterology will not be available at the hospital this weekend and through next week. If further evaluation by gastroenterology is required the patient will need transfer as per the primary team's discretion. Dr. Sirisha Fitzgerald I agree with the dictator's note, documented as a scribe by Mamta Pope.
[2022-01-23] MEDS ORDERED: POTASSIUM CHLORIDE ER 20 MEQ TAB.ER PO STA (10:04)
--- NOTE | 2022-01-23 12:13 | CDI ---
Documentation Clarification Form Date: 01/21/2022 11:12:00 AM From: Astrid Chirinos RN, CCDS Email: [email or web address] Admit Date: 01/19/2022 07:01:00 PM Patient Name: Bernice Mueller Visit Number: [id number] Discharge Date: ATTENTION: The Clinical Documentation Specialists (CDI) and [facility] Coding Staff appreciate your assistance in clarifying documentation. Please respond to the clarification below the line at the bottom and electronically sign. The CDI & [facility] Coding staff will review the response and follow-up if needed. Please note: Queries are made part of the Legal Health Record. If you have any questions, please contact the author of this message via ITS. Dr. Saroj Pineda Sepsis is documented in the ED note but is not noted in subsequent documentation. Clarification is requested. History/Risk Factors: 31-year-old female with hx of heroin abuse, endocarditis with mitral valve surgery, Hepatitis C and Covid infection in November. Clinical Indicators: increased SOB and right sided chest pain. Skin looks yellow 01/19 ED: "Empyema, Sepsis." 01/19 H&P: "EKG shows sinus tachycardia. Chest x-ray, cardiomegaly, elevated D- dimer. CT of the chest shows large probably empyema in the left lung. Pulmonary and Infectious Disease consult. Lactic acidosis elevated at 5.9. Fluids. Broad- spectrum antibiotics with Vancomycin and Zosyn." 01/19 Labs: WBC 11.4, D dimer 8.16, lactic acid 5.9, AST 360, ALT 183 01/21 Labs: CRP 2.8, Procalcitonin 0.36 01/20 Vital signs: Temp 95.9, HR 111, RR 46, BP 90/46 pox 96% 01/19 CTA: Left anterior medial fluid collection favored to be within the pleural space with enhancing pleura concerning for empyema. Rightward shift of the mediastinum/heart from aforementioned left-sided pleural fluid collection favored to represent empyema. 01/21 CXR: Cardiomegaly correlate for mild venous congestion. Increasing left basilar consolidation and small bilateral effusions. 01/21 CTS: "Leukocytosis, lactic acidosis present on admission. Recommend pigtail catheter placement. Antibiotic management per ID." 01/20 ID: "Possible empyema. Continue Vancomycin, discontinue Zosyn, add Cefepime." Treatment: IV Cefepime 2gm Q8H, IV Vancomycin 1250mg Q8H then Q12H, 0.9 NS @100mL/hr Please clarify if Sepsis is: [ ] Sepsis confirmed, remains under treatment [ ] Sepsis confirmed, resolved [ ] Sepsis ruled out [ ] Other condition, please specify [ ] Unable to determine MTDD
--- NOTE | 2022-01-23 12:47 | P.PN ---
Subjective Progress Note Date: 01/23/22 This is a pleasant 31-year-old female patient with a known history of hepatitis C, IV drug abuse with heroin last used 11/03/2021, endocarditis, mitral valve replacement in 2019 at [facility], MRSA and a right hip. Chest has chronic and ongoing tobacco dependence. She also states she had a CoVID infection in November and has been short of breath since that time. She is currently incarcerated. [facility] with complaints of right-sided chest pain, shortness of breath, cough and congestion. Chest x-ray revealed cardiomediastinal silhouette moderately enlarged. Postsurgical changes with valvular prosthesis. No evidence of pleural effusion. No focal consolidation. No pneumothorax. CT angiogram ruled out pulmonary embolism however there is noted large fluid collection within the anterior medial left pleural space with associated atelectasis. There is suggestion of enhancing pleura. No focal consolidation or pneumothorax. However, the CAT scan was further reviewed and is now being reported as a large fluid collection most likely in the pericardium. Echocardiogram is pending. EKG reveals normal sinus rhythm with nonspecific ST and T wave abnormalities. Ultrasound of the liver revealed cholelithiasis with no definitive evidence for gallbladder wall t hickening or. Cholestatic fluid. Liver was within normal limits. White count 9.1. Hemoglobin 12.6. Platelets 334. INR 1.7. D-dimer 8.16. Sodium 131. Potassium 5.1. Bicarb 16. BUN 19. Creatinine 0.63. Lactic acid 5.8, 4.9. AST 360. ALT 183. Troponin negative 1. The patient is seen in consultation in the emergency department. She is awake and alert in no acute distress. She is maintaining good O2 saturations in the mid 90s on room air. She's been afebrile. Slightly tachycardic. Hemodynamically stable. She is still having issues with some right-sided chest discomfort. Some shortness of breath. Nonproductive cough. She was initiated on vancomycin and Zosyn, 0.9 normal saline at 100. Patient was reevaluated today on 01/21/22, remains in the ICU awaiting to be transferred possibly to [facility]. I had a long discussion with the radiologist yesterday on multiple occasions and the radiologist is extremely reluctant to consider CT-guided or ultrasound-guided drainage of the fluid collection noted on her initial CT of the chest and chest x-ray. He feels that this is a fluid collection that is in close proximity to the heart, and still believe this may be pericardial fluid or cysts. Possibility of empyema is not entirely ruled out, but according to him this is not a fluid that seems to be consistent with empyema. At any rate him and the cardiothoracic surgery on the case, are extremely reluctant to do any surgical intervention. Hence the recommendation is to transfer the patient to a tertiary care center. 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 I discussed her condition today with the admitting physician Dr. Pineda, and apparently he is in the process according to him of making the transfer take place to [facility]. Patient was reevaluated today on 01/22/22, after evaluating the patient yesterday, we discussed with Dr. Rick/interventional radiologist the patient's condition, and he agreed to proceed with CT-guided needle aspiration of the fluid collection in the left pleural space, and if seems to be infected he would proceed with a pigtail catheter placement. Indeed this was done yesterday, and he was able to drain over 700 mL of pus out of the pleural space, he went ahead and placed a pigtail catheter, and connected to Pleur-evac. The fluid is now slightly serosanguineous, was initially purulent. Cultures on the fluid are pending patient in the meantime is receiving vancomycin and cefepime. Based on the final cultures will adjust antibiotics accordingly. Clinically the patient is feeling much better today, breathing a lot easier. She denies any discomfort, she had a follow-up chest x-ray which showed improvement. Patient is doing well with incentive spirometry, she is now on room air and O2 saturation is 94%. WBC count today is 9.9 hemoglobin 13.6 electrolytes are normal renal profile is normal bicarb is a bit low at 17. The Gram stain of the pleural fluid is negative so far, however there is many polymorphonuclear leukocytes, no organisms seen yet. Cultures are pending. The patient is seen today 01/23/2022 in follow-up on the regular medical floor. She is currently sitting up in bed. Awake and alert in no acute distress. She is still having some left-sided chest discomfort. Left chest catheter remains in place. She did receive alteplase/dornase yesterday with 400 ML's of cloudy bloody fluid returned. Today's chest x-ray shows continued effusion. Initial pleural fluid cultures are positive for presumptive MRSA. White count 9.8. Hemoglobin 13.1. Platelets 144. Sodium 1:30. Potassium 3.6. Bicarb 16. BUN 18. Creatinine 0.68. AST 296. ALT 285. Vancomycin trough 24.7. She is continued on vancomycin and cefepime. Left upper extremity PICC line remains in place. Remains on IV diuretics. She is currently afebrile. Maintaining O2 saturation in the mid 90s on room air. Objective - Vital Signs Vital signs: Vital Signs Temp 97.5 F L 01/23/22 11:52 Pulse 103 H 01/23/22 11:52 Resp 16 01/23/22 11:52 BP 99/71 01/23/22 11:52 Pulse Ox 96 01/23/22 11:52 FiO2 Intake & Output 01/22/22 01/23/22 01/23/22 18:59 06:59 18:59 Intake Total 900 530 Output Total 500 750 Balance 400 -220 Intake: IV 100 250 0.9 100 Vancomycin 1,250 mg In 250 Sodium Chloride 0.9% 250 ml @ 125 mls/hr IVPB Q12H [facility] Rx#:[id number] Oral 800 280 Output: Chest Tube Drainage 450 Chest Tube Left Posterior 450 Chest Urine 500 300 Other: Voiding Method Bedside Commode Bedside Commode Bedside Commode # Voids 0 1 - Exam GENERAL EXAM: Alert, pleasant 31-year-old female, on room air, fairly comfortable in no apparent distress. HEAD: Normocephalic. EYES: Normal reaction of pupils, equal size. NOSE: Clear with pink turbinates. THROAT: No erythema or exudates. NECK: No masses, no JVD. CHEST: No chest wall deformity. Left-sided chest tube remains in place. To P leur-evac to wall suction. LUNGS: Equal air entry with crackles in the left lung base, diminished. CVS: S1 and S2 normal with no audible murmur, regular rhythm. ABDOMEN: No hepatosplenomegaly, normal bowel sounds, no guarding or rigidity. SPINE: No scoliosis or deformity SKIN: No rashes CENTRAL NERVOUS SYSTEM: No focal deficits, tone is normal in all 4 extremities. EXTREMITIES: There is no peripheral edema. No clubbing, no cyanosis. Peripheral pulses are intact. - Labs CBC & Chem 7: 01/23/22 08:29 01/23/22 08:34 Labs: Abnormal Lab Results - Last 24 Hours (Table) 01/23/22 01/23/22 Range/Units 08:29 08:34 MCHC 30.9 L (31.0-37.0) g/dL RDW 18.2 H (11.5-15.5) % Plt Count 144 L (150-450) k/uL Neutrophils # 7.9 H (1.3-7.7) k/uL Sodium 130 L (137-145) mmol/L Carbon Dioxide 16 L (22-30) mmol/L BUN 18 H (7-17) mg/dL Glucose 116 H (74-99) mg/dL Calcium 7.6 L (8.4-10.2) mg/dL Total Bilirubin 1.8 H (0.2-1.3) mg/dL AST 296 H (14-36) U/L ALT 285 H (4-34) U/L Total Protein 5.4 L (6.3-8.2) g/dL Albumin 2.5 L (3.5-5.0) g/dL Microbiology - Last 24 Hours (Table) 01/21/22 20:21 Gram Stain - Preliminary Sputum Sputum Culture - Preliminary 01/21/22 15:30 Acid Fast Bacilli Smear - Final Pleural Fluid Acid Fast Bacilli Culture - Preliminary 01/21/22 17:30 Gram Stain - Preliminary Pleural Fluid Body Fluid Culture - Preliminary Presumptive MRSA 01/19/22 19:23 Blood Culture - Preliminary Blood No Growth after 72 hours 01/19/22 19:16 Blood Culture - Preliminary Blood No Growth after 72 hours 01/21/22 19:11 Urine Culture - Final Urine,Voided 01/21/22 20:21 Fungal Culture - Preliminary Aspirate 01/21/22 20:21 Acid Fast Bacilli Culture - Preliminary Aspirate Assessment and Plan Assessment: Chest pain with shortness of breath secondary to a large fluid collection displacing the heart and appears contiguous with superior pericardial recess. Status post left chest catheter placement on 01/22/2022. Receiving alteplase/dornase injections with 400 ML's return to yesterday. Plan is for repeat injection today. Chest tube remains attached to Pleur-evac to wall suction. Initial cultures positive for presumptive MRSA. Continued on cefepime and vancomycin. Left upper extremity PICC line in place. History of heroin use, last used 11/03/2021 Recently incarcerated secondary to above History of COVID-19 infection in November 2021 History of bacterial endocarditis with tricuspid valve repair in January 2020 at [facility], maintained on baby aspirin History of hepatitis C Mild transaminitis, ultrasound revealed evidence of cholecystitis without gallbladder wall thickening, liver within normal limits History of chronic tobacco dependence History of MRSA in the right hip History of hypertension History of acid reflux disease Plan: The patient was seen and evaluated Chest x-ray and labs reviewed Fluid positive for presumptive MRSA Continue vancomycin and cefepime Left-sided chest tube remains in place Continue insertion of alteplase/dornase per CT services Follow-up computed tomography scan of the chest in the next few days We will continue to follow and make further recommendations based on her clinical status I have personally seen and examined the patient, performed the documentation and the assessment and plan as written. Number of minutes spent on the visit: 10.
[2022-01-23] MEDS: KETOROLAC 15 MG/ML 1 ML VIAL IVP PRN ×2 (13:09→18:18)
--- NOTE | 2022-01-23 15:30 | P.PN ---
Subjective Progress Note Date: 01/21/22 Principal diagnosis: Left-sided empyema Patient is a 31-year-old female with a past medical history significant for IV drug use history of mitral valve endocarditis presented to hospital with left-sided chest pain or difficulty in breathing and this patient has been diagnosed with a left-sided empyema. On today's evaluation that is 01/21/2022, the patient denies having any fever or any chills still some burning or pain to the left side of the chest and difficulty breathing no worsening cough or sputum production no nausea no vomiting no abdominal pain no diarrhea Objective - Vital Signs Vital signs: Vital Signs Temp 96.2 F L 01/21/22 08:00 Pulse 108 H 01/21/22 11:00 Resp 27 H 01/21/22 11:00 BP 114/83 01/21/22 10:00 Pulse Ox 94 L 01/21/22 11:00 FiO2 Intake & Output 01/20/22 01/21/22 01/21/22 18:59 06:59 18:59 Intake Total 600 2000 700 Output Total 200 0 0 Balance 400 2000 700 Weight 63.957 kg 65.2 kg Intake: IV 600 1300 500 0.9 500 1200 400 Cefepime 2 gm In Sodium 100 100 100 Chloride 0.9% 100 ml @ 25 mls/hr IVPB Q8HR [facility] Rx# :[id number] Intake, IV Titration 700 Amount Potassium Chloride 10 meq 200 In Water For Injection 1 100ml.bag @ 100 mls/hr IVPB Q1H [facility] Rx#: [id number] Vancomycin 1,250 mg In 500 Sodium Chloride 0.9% 250 ml @ 125 mls/hr IVPB Q8H [facility] Rx#:[id number] Oral 200 Output: Urine 200 0 0 Other: Voiding Method Bedpan Bedside Commode Bedside Commode # Voids 1 1 # Bowel Movements 1 1 1 - Exam GENERAL DESCRIPTION: Middle-age female lying in bed in no distress RESPIRATORY SYSTEM: Unlabored breathing , decreased breath sounds at bases HEART: S1 S2 regular rate and rhythm , ABDOMEN: Soft , no tenderness EXTREMITIES: No edema feet - Labs CBC & Chem 7: 01/23/22 08:29 01/23/22 08:34 Labs: Abnormal Lab Results - Last 24 Hours (Table) 01/20/22 01/20/22 01/20/22 Range/Units 03:22 14:06 15:06 RDW (11.5-15.5) % Monocytes # (0-1.0) k/uL Sodium 131 L (135-145) mmol/L Carbon Dioxide 16.4 L (20.0-27.5) mmol/L Anion Gap 18.60 H (10.00-18.00) mmol/L BUN (7-17) mg/dL BUN/Creatinine Ratio 20.38 H (12.00-20.00) Ratio Glucose 127 H (70-110) mg/dL POC Glucose (mg/dL) 67 L 120 H (70-110) mg/dL Plasma Lactic Acid Binu (0.7-2.0) mmol/L Calcium 8.6 L (8.7-10.3) mg/dL Total Bilirubin 1.50 H (0.30-1.20) mg/dL AST 251 H (13-35) U/L ALT 186 H (8-44) U/L C-Reactive Protein (<1.0) mg/dL Albumin 3.5 L (3.8-4.9) g/dL Albumin/Globulin Ratio 1.09 L (1.60-3.17) g/dL Procalcitonin (0.02-0.09) ng/mL 01/20/22 01/20/22 01/20/22 Range/Units 15:18 18:19 22:02 RDW (11.5-15.5) % Monocytes # (0-1.0) k/uL Sodium (135-145) mmol/L Carbon Dioxide (20.0-27.5) mmol/L Anion Gap (10.00-18.00) mmol/L BUN (7-17) mg/dL BUN/Creatinine Ratio (12.00-20.00) Ratio Glucose (70-110) mg/dL POC Glucose (mg/dL) (70-110) mg/dL Plasma Lactic Acid Binu 7.2 H* 6.1 H* 4.6 H* (0.7-2.0) mmol/L Calcium (8.7-10.3) mg/dL Total Bilirubin (0.30-1.20) mg/dL AST (13-35) U/L ALT (8-44) U/L C-Reactive Protein (<1.0) mg/dL Albumin (3.8-4.9) g/dL Albumin/Globulin Ratio (1.60-3.17) g/dL Procalcitonin (0.02-0.09) ng/mL 01/21/22 01/21/22 01/21/22 Range/Units 02:50 02:50 02:50 RDW (11.5-15.5) % Monocytes # (0-1.0) k/uL Sodium 129 L (135-145) mmol/L Carbon Dioxide 13 L (20.0-27.5) mmol/L Anion Gap (10.00-18.00) mmol/L BUN 22 H (7-17) mg/dL BUN/Creatinine Ratio (12.00-20.00) Ratio Glucose 106 H (70-110) mg/dL POC Glucose (mg/dL) (70-110) mg/dL Plasma Lactic Acid Binu 5.8 H* (0.7-2.0) mmol/L Calcium 8.1 L (8.7-10.3) mg/dL Total Bilirubin 2.5 H (0.30-1.20) mg/dL AST 579 H (13-35) U/L ALT 268 H (8-44) U/L C-Reactive Protein 2.8 H (<1.0) mg/dL Albumin 3.1 L (3.8-4.9) g/dL Albumin/Globulin Ratio (1.60-3.17) g/dL Procalcitonin 0.36 H (0.02-0.09) ng/mL 01/21/22 01/21/22 Range/Units 03:04 07:08 RDW 17.6 H (11.5-15.5) % Monocytes # 1.4 H (0-1.0) k/uL Sodium (135-145) mmol/L Carbon Dioxide (20.0-27.5) mmol/L Anion Gap (10.00-18.00) mmol/L BUN (7-17) mg/dL BUN/Creatinine Ratio (12.00-20.00) Ratio Glucose (70-110) mg/dL POC Glucose (mg/dL) (70-110) mg/dL Plasma Lactic Acid Binu 5.9 H* (0.7-2.0) mmol/L Calcium (8.7-10.3) mg/dL Total Bilirubin (0.30-1.20) mg/dL AST (13-35) U/L ALT (8-44) U/L C-Reactive Protein (<1.0) mg/dL Albumin (3.8-4.9) g/dL Albumin/Globulin Ratio (1.60-3.17) g/dL Procalcitonin (0.02-0.09) ng/mL Microbiology - Last 24 Hours (Table) 01/19/22 19:23 Blood Culture - Preliminary Blood No Growth after 24 hours 01/19/22 19:16 Blood Culture - Preliminary Blood No Growth after 24 hours Assessment and Plan (1) Empyema Current Visit: Yes Status: Acute Code(s): J86.9 - PYOTHORAX WITHOUT FISTULA SNOMED Code(s): 890342001 Plan: 1patient presented to hospital with left chest pain cough in this patient with evidence of abnormal CT concerning for possible empyema patient to have a history of IV drug use and will need to cover for both resistant gram-positive as well as gram-negative pathogen 2-obtain a sputum for gram stain and culture and check inflammatory markers 3-patient to continue with vancomycin and cefepime currently waiting for possible transfer to [facility] Time with Patient: Less than 30
--- NOTE | 2022-01-23 15:32 | P.PN ---
Subjective Progress Note Date: 01/22/22 Principal diagnosis: Left-sided empyema Patient is a 31-year-old female with a past medical history significant for IV drug use history of mitral valve endocarditis presented to hospital with left-sided chest pain or difficulty in breathing and this patient has been diagnosed with a left-sided empyema. patient is status post placement of left sided pigtail catheter by interventional radiology with removal of 660 mL purulent drainage on 01/21/2022 On today's evaluation that is 01/22/2022, the patient remains to be afebrile, the patient pain to the left side of the chest area slightly decreased intensity, she is breathing more comfortably, the patient denies worsening cough or sputum production no nausea no vomiting no abdominal pain no diarrhea Objective - Vital Signs Vital signs: Vital Signs Temp 97.7 F 01/22/22 13:02 Pulse 96 01/22/22 13:02 Resp 14 01/22/22 13:02 BP 99/74 01/22/22 13:02 Pulse Ox 96 01/22/22 13:02 FiO2 Intake & Output 01/21/22 01/22/22 01/22/22 18:59 06:59 18:59 Intake Total 1600 1575 600 Output Total 0 406 300 Balance 1600 1169 300 Weight 76.1 kg Intake: IV 1100 1325 100 0.9 900 1100 100 Cefepime 2 gm In Sodium 200 100 Chloride 0.9% 100 ml @ 25 mls/hr IVPB Q8HR [facility] Rx# :[id number] Vancomycin 1,250 mg In 125 Sodium Chloride 0.9% 250 ml @ 125 mls/hr IVPB Q12H [facility] Rx#:[id number] Intake, IV Titration 250 Amount Vancomycin 1,250 mg In 250 Sodium Chloride 0.9% 250 ml @ 125 mls/hr IVPB Q8H [facility] Rx#:[id number] Oral 500 500 Output: Chest Tube Drainage 106 Chest Tube Left Posterior 106 Chest Urine 0 300 300 Other: Voiding Method Bedside Commode Bedside Commode Bedside Commode # Voids 1 1 0 # Bowel Movements 1 - Exam GENERAL DESCRIPTION: Middle-age female lying in bed in no distress RESPIRATORY SYSTEM: Unlabored breathing , decreased breath sounds at bases HEART: S1 S2 regular rate and rhythm , ABDOMEN: Soft , no tenderness EXTREMITIES: No edema feet - Labs CBC & Chem 7: 01/23/22 08:29 01/23/22 08:34 Labs: Abnormal Lab Results - Last 24 Hours (Table) 01/21/22 01/21/22 01/22/22 Range/Units 10: 19:11 04:05 MCHC (31.0-37.0) g/dL RDW (11.5-15.5) % Monocytes # (0-1.0) k/uL Sodium 132 L (137-145) mmol/L Carbon Dioxide 17 L (22-30) mmol/L BUN 23 H (7-17) mg/dL Calcium 7.9 L (8.4-10.2) mg/dL Total Bilirubin 2.0 H (0.2-1.3) mg/dL AST 747 H (14-36) U/L ALT 412 H (4-34) U/L Lactate Dehydrogenase 2046 H (313-618) U/L Total Protein 6.1 L 5.9 L (6.3-8.2) g/dL Albumin 2.9 L (3.5-5.0) g/dL Urine Appearance Turbid H (Clear) Urine Protein 2+ H (Negative) Urine Ketones 1+ H (Negative) Urine Blood Large H (Negative) Urine Bilirubin 1+ H (Negative) Ur Leukocyte Esterase Small H (Negative) Urine RBC >182 H (0-5) /hpf Urine WBC 18 H (0-5) /hpf Urine WBC Clumps Occasional H (None) /hpf Ur Squamous Epith Cells 10 H (0-4) /hpf Hyaline Casts 24 H (0-2) /lpf Urine Mucus Rare H (None) /hpf 01/22/22 Range/Units 04:05 MCHC 30.0 L (31.0-37.0) g/dL RDW 17.2 H (11.5-15.5) % Monocytes # 1.3 H (0-1.0) k/uL Sodium (137-145) mmol/L Carbon Dioxide (22-30) mmol/L BUN (7-17) mg/dL Calcium (8.4-10.2) mg/dL Total Bilirubin (0.2-1.3) mg/dL AST (14-36) U/L ALT (4-34) U/L Lactate Dehydrogenase (313-618) U/L Total Protein (6.3-8.2) g/dL Albumin (3.5-5.0) g/dL Urine Appearance (Clear) Urine Protein (Negative) Urine Ketones (Negative) Urine Blood (Negative) Urine Bilirubin (Negative) Ur Leukocyte Esterase (Negative) Urine RBC (0-5) /hpf Urine WBC (0-5) /hpf Urine WBC Clumps (None) /hpf Ur Squamous Epith Cells (0-4) /hpf Hyaline Casts (0-2) /lpf Urine Mucus (None) /hpf Microbiology - Last 24 Hours (Table) 01/21/22 20:21 Sputum Culture - Preliminary Sputum 01/21/22 20:21 Fungal Culture - Preliminary Aspirate 01/21/22 20:21 Acid Fast Bacilli Culture - Preliminary Aspirate 01/21/22 17:30 Gram Stain - Preliminary Pleural Fluid Body Fluid Culture - Preliminary 01/21/22 17:30 Fungal Culture - Preliminary Pleural Fluid 01/21/22 15:30 Anaerobic Culture - Preliminary Pleural Fluid 01/21/22 15:30 Acid Fast Bacilli Culture - Preliminary Pleural Fluid 01/21/22 19:11 Urine Culture - Preliminary Urine,Voided 01/19/22 19:23 Blood Culture - Preliminary Blood No Growth after 48 hours 01/19/22 19:16 Blood Culture - Preliminary Blood No Growth after 48 hours Assessment and Plan (1) Empyema Current Visit: Yes Status: Acute Code(s): J86.9 - PYOTHORAX WITHOUT FISTULA SNOMED Code(s): 827320862 Plan: 1patient presented to hospital with left chest pain cough in this patient with evidence of abnormal CT concerning for possible empyema patient to have a history of IV drug use and will need to cover for both resistant gram-positive as well as gram-negative pathogen Patient is status post placement of left sided pigtail catheter by interventional radiology with removal of 660 mL purulent drainage, cultures are currently pending 3-patient to continue with vancomycin and cefepime while waiting for the cultures to finalize Time with Patient: Less than 30
--- NOTE | 2022-01-23 15:33 | P.PN ---
Subjective Progress Note Date: 01/23/22 Principal diagnosis: Left-sided empyema Patient is a 31-year-old female with a past medical history significant for IV drug use history of mitral valve endocarditis presented to hospital with left-sided chest pain or difficulty in breathing and this patient has been diagnosed with a left-sided empyema. patient is status post placement of left sided pigtail catheter by interventional radiology with removal of 660 mL purulent drainage on 01/21/2022 On today's evaluation that is 01/23/2022, the patient continues to be afebrile, the patient pain to the left side of the chest area is current controlled, the patient is breathing more comfortably on room he denies any cough or sputum production no abdominal pain no diarrhea Objective - Vital Signs Vital signs: Vital Signs Temp 97.5 F L 01/23/22 11:52 Pulse 103 H 01/23/22 11:52 Resp 16 01/23/22 11:52 BP 99/71 01/23/22 11:52 Pulse Ox 96 01/23/22 11:52 FiO2 Intake & Output 01/22/22 01/23/22 01/23/22 18:59 06:59 18:59 Intake Total 900 530 Output Total 500 750 Balance 400 -220 Intake: IV 100 250 0.9 100 Vancomycin 1,250 mg In 250 Sodium Chloride 0.9% 250 ml @ 125 mls/hr IVPB Q12H [facility] Rx#:[id number] Oral 800 280 Output: Chest Tube Drainage 450 Chest Tube Left Posterior 450 Chest Urine 500 300 Other: Voiding Method Bedside Commode Bedside Commode Bedside Commode # Voids 0 1 - Exam GENERAL DESCRIPTION: Middle-age female lying in bed in no distress RESPIRATORY SYSTEM: Unlabored breathing , decreased breath sounds at bases HEART: S1 S2 regular rate and rhythm , ABDOMEN: Soft , no tenderness EXTREMITIES: No edema feet - Labs CBC & Chem 7: 01/23/22 08:29 01/23/22 08:34 Labs: Abnormal Lab Results - Last 24 Hours (Table) 01/23/22 01/23/22 Range/Units 08:29 08:34 MCHC 30.9 L (31.0-37.0) g/dL RDW 18.2 H (11.5-15.5) % Plt Count 144 L (150-450) k/uL Neutrophils # 7.9 H (1.3-7.7) k/uL Sodium 130 L (137-145) mmol/L Carbon Dioxide 16 L (22-30) mmol/L BUN 18 H (7-17) mg/dL Glucose 116 H (74-99) mg/dL Calcium 7.6 L (8.4-10.2) mg/dL Total Bilirubin 1.8 H (0.2-1.3) mg/dL AST 296 H (14-36) U/L ALT 285 H (4-34) U/L Total Protein 5.4 L (6.3-8.2) g/dL Albumin 2.5 L (3.5-5.0) g/dL Microbiology - Last 24 Hours (Table) 01/21/22 20:21 Gram Stain - Preliminary Sputum Sputum Culture - Preliminary 01/21/22 15:30 Acid Fast Bacilli Smear - Final Pleural Fluid Acid Fast Bacilli Culture - Preliminary 01/21/22 17:30 Gram Stain - Preliminary Pleural Fluid Body Fluid Culture - Preliminary Presumptive MRSA 01/19/22 19:23 Blood Culture - Preliminary Blood No Growth after 72 hours 01/19/22 19:16 Blood Culture - Preliminary Blood No Growth after 72 hours 01/21/22 19:11 Urine Culture - Final Urine,Voided 01/21/22 20:21 Fungal Culture - Preliminary Aspirate 01/21/22 20:21 Acid Fast Bacilli Culture - Preliminary Aspirate Assessment and Plan (1) Empyema Current Visit: Yes Status: Acute Code(s): J86.9 - PYOTHORAX WITHOUT FISTULA SNOMED Code(s): 680162928 Plan: 1patient presented to hospital with left chest pain cough in this patient with evidence of abnormal CT concerning for possible empyema patient to have a history of IV drug use and will need to cover for both resistant gram-positive as well as gram-negative pathogen Patient is status post placement of left sided pigtail catheter by interventional radiology with removal of 660 mL purulent drainage, cultures are currently growing presumptive MRSA 3-patient to continue with vancomycin while watching kidney function closely and discontinue cefepime Time with Patient: Less than 30
[2022-01-23] MEDS ORDERED: FLUCONAZOLE 100 MG TAB PO ONE (16:36)
[2022-01-23 16:40] LABS: Hepatitis A Antibody IgM Nonreactive (Nonreactive); Hepatitis B Core IgM Nonreactive (Nonreactive); Hepatitis B Surface Antigen Nonreactive (Nonreactive); Hepatitis C IgG Antibody Reactive (Nonreactive)
[2022-01-23] MEDS: FERROUS SULFATE 325 MG TAB PO SCH (20:51)
--- NOTE | 2022-01-23 23:23 | PN ---
PROGRESS NOTE SUBJECTIVE: White female, still remains in ICU. She is complaining of abdominal distention, which CAT scan of her belly shows some possible cirrhosis and ascites. Take her off her hydrochlorothiazide. Start her on Lasix 20 mg daily. She had Dr. Rick put in a chest tube to drain pleural effusion versus empyema. She feels better with her breathing since this is being drained. Her chest fluid has been drained. OBJECTIVE: CARDIOVASCULAR: S1 and S2. LUNGS: Mostly clear. Chest tubes are in place. ABDOMEN: Distended. Positive fluid wave. ASSESSMENT AND PLAN: Ascites with cirrhosis. GI consult. Lasix was given. Pleural effusion, possible empyema. Chest tubes were placed. We tried to transfer, we were unable to transfer her. Continue broad-spectrum antibiotics. Wait for multiple consultations MMODL / IJN: [id number] /
[2022-01-24] MEDS: HYDROcodone/APAP 5-325MG 1 EACH TAB PO PRN ×4 (00:01→18:18)
--- NOTE | 2022-01-24 00:50 | PN ---
PROGRESS NOTE SUBJECTIVE: A 31-year-old white female, remains on vancomycin. She is status post chest tube placement, history of IV drug use, mitral valve endocarditis, status post a left-sided pigtail catheter for left-sided empyema. She feels better. Abdominal ascites and increased abdominal distention. GI consult pending. I gave her Lasix for this 20 mg a day. Breathing is more comfortable. OBJECTIVE: VITAL SIGNS: Blood pressure 90s over 70s, pulse 103, respiratory rate 16 to 18, temperature 97.5, O2 of 96. GENERAL: Middle-aged female, in no acute distress. Nonlabored breathing. HEART: S1, S2. Chest tubes in place. ABDOMEN: Soft, mildly distended. EXTREMITIES: No cyanosis, clubbing, or edema. LABS: Reviewed. ASSESSMENT: Empyema, ascites, possible cirrhosis, history of endocarditis. Dr. Martines is on consult for Infectious Disease. Presumptive MRSA was growing in the 660 mL of purulent drainage. Continue with vancomycin and watch kidneys. We are going to stop the cefepime. Wait for the microbiology report to come back. Presumptive MRSA and Bridget albicans. Prognosis guarded. MMODL / IJN: [id number] /
[2022-01-24] MEDS: KETOROLAC 15 MG/ML 1 ML VIAL IVP PRN ×4 (00:52→18:17)
[2022-01-24] MEDS: BENZONATATE 100 MG CAP PO SCH ×3 (07:36→21:24)
[2022-01-24] MEDS: MULTIVITAMINS, THERA 1 EACH TAB PO SCH (07:36)
[2022-01-24] MEDS: VANCOMYCIN 1,000 MG in SODIUM CHLORIDE 0.9% 250 ML IVPB SCH ×2 (07:36→18:18)
[2022-01-24] MEDS: PANTOPRAZOLE 40 MG TABLET PO SCH (07:36)
[2022-01-24] MEDS: FUROSEMIDE 10 MG/ML 2 ML VIAL IV SCH ×2 (07:36→21:25)
[2022-01-24] MEDS: ASPIRIN 81 MG PO SCH (07:36)
--- NOTE | 2022-01-24 07:52 | XR ---
EXAMINATION TYPE: XR chest 1V portable DATE OF EXAM: 01/24/2022 CLINICAL HISTORY: Difficulty breathing progress study. Left-sided empyema. TECHNIQUE: Single AP portable upright view of the chest is obtained. COMPARISON: Chest x-ray from one day earlier and older studies. FINDINGS: Persistent left basilar pigtail drainage catheter with left lower lung increased opacity. Patchy right basilar opacity redemonstrated with overlying epicardial pacer leads redemonstrated. Sta ble left-sided PICC line. Persistent cardiomegaly. Upper lungs remain clear without pneumothorax. IMPRESSION: Persistent left basilar acute infiltrate and/or atelectasis and likely left-sided pleural fluid collection with left basilar pigtail drainage catheter. Persistent patchy right basilar acute infiltrate and/or atelectasis and cardiomegaly. No significant change from most recent x-ray.
[2022-01-24] MEDS ORDERED: DORNASE ALFA 5 MG in SODIUM CHLORIDE 0.9% 50 ML IRRIGATION ONE (08:27)
[2022-01-24] MEDS ORDERED: ALTEPLASE 10 MG in SODIUM CHLORIDE 0.9% 50 ML IRRIGATION ONE (08:27)
--- NOTE | 2022-01-24 08:34 | P.PN ---
Subjective Progress Note Date: 01/24/22 Principal diagnosis: Left-sided chest fluid collection, empyema, shortness of breath, chest pain, nonproductive cough, leukocytosis, lactic acidosis, elevated liver enzymes present on admission. 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 The patient was seen and examined in follow-up today 01/24/2022 at her bedside on the fourth floor medical surgical unit. Currently she is sitting up in bed eating her breakfast, is awake, alert, oriented 3 and is in no acute distress. Denies any complaints of shortness of breath at this time although is complaini ng of some pain to her left anterior chest pigtail catheter insertion site rating her pain 6 out of 10 with taking a deep breath. Oxygen saturations are 97% on room air and she is achieving thousand milliliters on her incentive spirometry with encouragement. Left chest pigtail catheter remains in place and is connected to low intermittent wall suction at -20 cm H2O. No air leak is present. Draining cloudy thin serosanguineous drainage with 900 mL of output in the last 24 hours. She was given a dose of all to place/dornase pleural instillation yesterday which was her second total dose. She has been afebrile the last 24 hours. Left arm PICC line remains in place and she is continues rec eive vancomycin for antibiotic coverage for a positive MRSA in her pleural fluid. The antibiotics is being managed by infectious disease. Objective - Vital Signs Vital signs: Vital Signs Temp 98 F 01/24/22 08:00 Pulse 99 01/24/22 08:00 Resp 17 01/24/22 08:00 BP 117/77 01/24/22 08:00 Pulse Ox 99 01/24/22 08:00 FiO2 Intake & Output 01/23/22 01/24/22 01/24/22 18:59 06:59 18:59 Output Total 760 150 Balance -760 -150 Output: Chest Tube Drainage 760 150 Chest Tube Left Posterior 760 150 Chest Other: Voiding Method Bedside Commode Bedside Commode # Voids 5 4 - Exam CONSTITUTIONAL: Appears comfortable, cooperative, no acute distress RESPIRATORY: Lungs sounds diminished bilaterally, left greater than right. Respirations are symmetrical, nonlabored. Currently on room air with oxygen saturation 97% and is achieving 1000 mL on her incentive spirometry. Strong nonproductive cough. CARDIOVASCULAR: S1, S2 present. Regular rate and rhythm. Palpable peripheral pulses bilaterally. No edema present. GASTROINTESTINAL: Abdomen soft, nontender, nondistended. Active bowel sounds present 4 quadrants. Tolerating diet. GENITOURINARY: Continues to void. INTEGUMENTARY: Skin is warm and dry, no clubbing or cyanosis is present. Dressing clean, dry and intact to her left chest pigtail catheter. NEUROLOGIC: Cranial nerves II through XII intact MUSKULOSKELETAL: Able to move all extremities, strength equal bilaterally PSYCHIATRIC: Alert and oriented to person place and time, appropriate affect, intact judgment and insight INVASIVE LINES AND TUBES: Left pigtail catheter present to low continuous wall suction -20 cm H2O, no air leaks present, 900 mL of cloudy serosanguineous drainage output in the last 24 hours. Left arm PICC line remains in place. - Allied health notes Allied health notes reviewed: nursing - Labs CBC & Chem 7: 01/23/22 08:29 01/23/22 08:34 Labs: Abnormal Lab Results - Last 24 Hours (Table) 01/22/22 01/23/22 01/23/22 Range/Units 04:00 08:29 08:34 MCHC 30.9 L (31.0-37.0) g/dL RDW 18.2 H (11.5-15.5) % Plt Count 144 L (150-450) k/uL Neutrophils # 7.9 H (1.3-7.7) k/uL Sodium 130 L (137-145) mmol/L Carbon Dioxide 16 L (22-30) mmol/L BUN 18 H (7-17) mg/dL Glucose 116 H (74-99) mg/dL Calcium 7.6 L (8.4-10.2) mg/dL Total Bilirubin 1.8 H (0.2-1.3) mg/dL AST 296 H (14-36) U/L ALT 285 H (4-34) U/L Total Protein 5.4 L (6.3-8.2) g/dL Albumin 2.5 L (3.5-5.0) g/dL Hep C IgG Ab Reactive A (Nonreactive) Microbiology - Last 24 Hours (Table) 01/21/22 17:30 Gram Stain - Final Pleural Fluid Body Fluid Culture - Final Methicillin resist S. aureus 01/21/22 20:21 Acid Fast Bacilli Smear - Final Aspirate Acid Fast Bacilli Culture - Preliminary 01/19/22 19:23 Blood Culture - Preliminary Blood No Growth after 96 hours 01/19/22 19:16 Blood Culture - Preliminary Blood No Growth after 96 hours 01/21/22 20:21 Gram Stain - Preliminary Sputum Sputum Culture - Preliminary Bridget albicans - Imaging and Cardiology Chest x-ray: report reviewed, image reviewed Assessment and Plan Assessment: 1. Left-sided chest fluid collection, empyema, status post left-sided pigtail catheter placement by interventional radiology, Gram stain from the pleural fluid shows presumptive MRSA 2. Shortness of breath, chest pain, nonproductive cough, secondary to above 3. Leukocytosis, lactic acidosis present on admission 4. Elevated liver enzymes present on admission 5. 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 IV heroin abuse which she stopped only prior to long term term 7. History of hepatitis C 8. Chronic ongoing tobacco dependence 9. History of right hip surgery secondary to MRSA infection 10. Covid infection in November 2021 11. Medical noncompliance with history of multiple times leaving AMA Plan: 1. Will instill alteplase/dornase today through pigtail catheter which will be a total of 3 doses administered. Monitor and record drainage. Keep left chest pigtail catheter to low continuous wall suction -20 cm H2O. 2. Encourage Incentive spirometry use 10 times every hour while awake. 3. Antibiotic management per infectious disease. Pleural fluid was sent for culture, positive for MRSA. 4. Increase activity as tolerated. Out of bed for all meals. 5. Discussed the importance of risk modification, counseling regarding smoking cessation and IV heroin cessation was provided to the patient. 6. Continue supportive therapy. 7. Medical management of other comorbidities per primary care, pulmonology and infectious disease. 8. Continue to monitor daily chest x-rays. 9. More recommendations to follow based on patient's clinical course. Time with Patient: Greater than 30
[2022-01-24] MEDS: ALBUTEROL NEBULIZED 2.5 MG/3 ML INHALATION SCH ×2 (09:17→20:23)
--- NOTE | 2022-01-24 11:49 | P.PN ---
Subjective Progress Note Date: 01/24/22 This is a pleasant 31-year-old female patient with a known history of hepatitis C, IV drug abuse with heroin last used 11/03/2021, endocarditis, mitral valve replacement in 2019 at [facility], MRSA and a right hip. Chest has chronic and ongoing tobacco dependence. She also states she had a CoVID infection in November and has been short of breath since that time. She is currently incarcerated. She was brought over from the intermediate with complaints of right-sided chest pain, shortness of breath, cough and congestion. Chest x-ray revealed cardiomediastinal silhouette moderately enlarged. Postsurgical changes with valvular prosthesis. No evidence of pleural effusion. No focal consolidation. No pneumothorax. CT angiogram ruled out pulmonary embolism however there is noted large fluid collection within the anterior medial left pleural space with associated atelectasis. There is suggestion of enhancing pleura. No focal consolidation or pneumothorax. However, the CAT scan was further reviewed and is now being reported as a large fluid collection most likely in the pericardium. Echocardiogram is pending. EKG reveals normal sinus rhythm with nonspecific ST and T wave abnormalities. Ultrasound of the liver revealed cholelithiasis with no definitive evidence for gallbladder wall t hickening or. Cholestatic fluid. Liver was within normal limits. White count 9.1. Hemoglobin 12.6. Platelets 334. INR 1.7. D-dimer 8.16. Sodium 131. Potassium 5.1. Bicarb 16. BUN 19. Creatinine 0.63. Lactic acid 5.8, 4.9. AST 360. ALT 183. Troponin negative 1. The patient is seen in consultation in the emergency department. She is awake and alert in no acute distress. She is maintaining good O2 saturations in the mid 90s on room air. She's been afebrile. Slightly tachycardic. Hemodynamically stable. She is still having issues with some right-sided chest discomfort. Some shortness of breath. Nonproductive cough. She was initiated on vancomycin and Zosyn, 0.9 normal saline at 100. Patient was reevaluated today on 01/21/22, remains in the ICU awaiting to be transferred possibly to [facility]. I had a long discussion with the radiologist yesterday on multiple occasions and the radiologist is extremely reluctant to consider CT-guided or ultrasound-guided drainage of the fluid collection noted on her initial CT of the chest and chest x-ray. He feels that this is a fluid collection that is in close proximity to the heart, and still believe this may be pericardial fluid or cysts. Possibility of empyema is not entirely ruled out, but according to him this is not a fluid that seems to be consistent with empyema. At any rate him and the cardiothoracic surgery on the case, are extremely reluctant to do any surgical intervention. Hence the recommendation is to transfer the patient to a tertiary care center. 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 I discussed her condition today with the admitting physician Dr. Pineda, and apparently he is in the process according to him of making the transfer take place to [facility]. Patient was reevaluated today on 01/22/22, after evaluating the patient yesterday, we discussed with Dr. Rick/interventional radiologist the patient's condition, and he agreed to proceed with CT-guided needle aspiration of the fluid collection in the left pleural space, and if seems to be infected he would proceed with a pigtail catheter placement. Indeed this was done yesterday, and he was able to drain over 700 mL of pus out of the pleural space, he went ahead and placed a pigtail catheter, and connected to Pleur-evac. The fluid is now slightly serosanguineous, was initially purulent. Cultures on the fluid are pending patient in the meantime is receiving vancomycin and cefepime. Based on the final cultures will adjust antibiotics accordingly. Clinically the patient is feeling much better today, breathing a lot easier. She denies any discomfort, she had a follow-up chest x-ray which showed improvement. Patient is doing well with incentive spirometry, she is now on room air and O2 saturation is 94%. WBC count today is 9.9 hemoglobin 13.6 electrolytes are normal renal profile is normal bicarb is a bit low at 17. The Gram stain of the pleural fluid is negative so far, however there is many polymorphonuclear leukocytes, no organisms seen yet. Cultures are pending. The patient is seen today 01/23/2022 in follow-up on the regular medical floor. She is currently sitting up in bed. Awake and alert in no acute distress. She is still having some left-sided chest discomfort. Left chest catheter remains in place. She did receive alteplase/dornase yesterday with 400 ML's of cloudy bloody fluid returned. Today's chest x-ray shows continued effusion. Initial pleural fluid cultures are positive for presumptive MRSA. White count 9.8. Hemoglobin 13.1. Platelets 144. Sodium 1:30. Potassium 3.6. Bicarb 16. BUN 18. Creatinine 0.68. AST 296. ALT 285. Vancomycin trough 24.7. She is continued on vancomycin and cefepime. Left upper extremity PICC line remains in place. Remains on IV diuretics. She is currently afebrile. Maintaining O2 saturation in the mid 90s on room air. The patient is seen today 01/24/2022 in follow-up on the regular medical floor. She is awake and alert in no acute distress. Maintaining good O2 saturations 90s on room air. Chest x-ray continues to show persistent left basilar acute infiltrate/atelectasis and likely left-sided pleural fluid collection with left basilar pigtail catheter drainage in place. Persistent patchy right basilar infiltrate/atelectasis and cardiomegaly. No significant change. Her left-sided chest discomfort pain is well controlled. Left-sided chest tube remains in place. She did have alteplase/dornase infusion again yesterday with 900 mL out. Plan is for repeat infusions today and tomorrow and a follow-up CAT scan on Wednesday. CT services are on the case. Pleural fluid culture was positive for MRSA. Sputum culture with Bridget. She is continued on vancomycin. Cefepime was discontinued. ID services are on the case. Objective - Vital Signs Vital signs: Vital Signs Temp 98 F 01/24/22 08:00 Pulse 99 01/24/22 08:00 Resp 17 01/24/22 08:00 BP 117/77 01/24/22 08:00 Pulse Ox 99 01/24/22 08:00 FiO2 Intake & Output 01/23/22 01/24/22 01/24/22 18:59 06:59 18:59 Output Total 760 150 Balance -760 -150 Output: Chest Tube Drainage 760 150 Chest Tube Left Posterior 760 150 Chest Other: Voiding Method Bedside Commode Bedside Commode # Voids 5 4 - Exam GENERAL EXAM: Alert, pleasant 31-year-old female, on room air, resting in bed, fairly comfortable in no apparent distress. HEAD: Normocephalic. EYES: Normal reaction of pupils, equal size. NOSE: Clear with pink turbinates. THROAT: No erythema or exudates. NECK: No masses, no JVD. CHEST: No chest wall deformity. Left-sided chest tube remains in place. To Pleur-evac to wall suction. LUNGS: Equal air entry with crackles in the left lung base, diminished. CVS: S1 and S2 normal with no audible murmur, regular rhythm. ABDOMEN: No hepatosplenomegaly, normal bowel sounds, no guarding or rigidity. SPINE: No scoliosis or deformity SKIN: No rashes CENTRAL NERVOUS SYSTEM: No focal deficits, tone is normal in all 4 extremities. EXTREMITIES: There is no peripheral edema. No clubbing, no cyanosis. Peripheral pulses are intact. - Labs CBC & Chem 7: 01/23/22 08:29 01/23/22 08:34 Labs: Abnormal Lab Results - Last 24 Hours (Table) 01/22/22 Range/Units 04:00 Hep C IgG Ab Reactive A (Nonreactive) Microbiology - Last 24 Hours (Table) 01/21/22 17:30 Gram Stain - Final Pleural Fluid Body Fluid Culture - Final Methicillin resist S. aureus 01/21/22 20:21 Acid Fast Bacilli Smear - Final Aspirate Acid Fast Bacilli Culture - Preliminary 01/19/22 19:23 Blood Culture - Preliminary Blood No Growth after 96 hours 01/19/22 19:16 Blood Culture - Preliminary Blood No Growth after 96 hours 01/21/22 20:21 Gram Stain - Preliminary Sputum Sputum Culture - Preliminary Bridget albicans Assessment and Plan Assessment: Chest pain with shortness of breath secondary to a large fluid collection displacing the heart and appears contiguous with superior pericardial recess. Status post left chest catheter placement on 01/22/2022. Chest x-ray continues to show persistent left basilar acute infiltrate/atelectasis and likely left- sided pleural fluid collection with left basilar pigtail catheter drainage in place. Persistent patchy right basilar infiltrate/atelectasis and cardiomegaly. No significant change. Receiving alteplase/dornase injections with 900 ML's return to yesterday. Plan is for repeat infusion today. Chest tube remains attached to Pleur-evac to wall suction. Cultures positive for MRSA. Continued vancomycin. Cefepime discontinued. ID is on the case. Left upper extremity PICC line in place. History of heroin use, last used 11/03/2021 Recently incarcerated secondary to above History of COVID-19 infection in November 2021 History of bacterial endocarditis with tricuspid valve repair in January 2020 at [facility], maintained on baby aspirin History of hepatitis C Mild transaminitis, ultrasound revealed evidence of cholecystitis without gallbladder wall thickening, liver within normal limits History of chronic tobacco dependence History of MRSA in the right hip History of hypertension History of acid reflux disease Plan: The patient was seen and evaluated Chest x-ray and medications reviewed Fluid positive for MRSA Continued on vancomycin, D/C'd cefepime PICC line in place Left-sided chest tube remains in place Continue infusions of alteplase/dornase per CT services Follow-up computed tomography scan of the chest in the next few days Increase her activity as tolerated Increase her use of the incentive spirometer We will continue to follow I have personally seen and examined the patient, performed the documentation and the assessment and plan as written. Number of minutes spent on the visit: 10.
[2022-01-24 12:55] LABS: Basophils # (A) 0.02 X 10*3/uL (0.00-0.10); Basophils % (A) 0.3 %; Eosinophils # (A) 0.14 X 10*3/uL (0.04-0.35); Eosinophils % (A) 1.8 %; HCT 37.1 % (37.2-46.3); HGB 11.7 g/dL (12.0-15.0); Immature Grans, Automated 0.4 %; Lymphocytes # (A) 1.36 X 10*3/uL (0.90-5.00); Lymphocytes % (A) 17.5 %; MCH 25.5 pg (27.0-32.0); MCHC 31.5 g/dL (32.0-37.0); MCV 80.8 fL (80.0-97.0); Mean Platelet Volume 10.9 fL (9.5-12.2); Monocytes # (A) 0.43 X 10*3/uL (0.20-1.00); Monocytes % (A) 5.5 %; NRBC Per 100 WBC 0 /100 WBCS (0.0-0.0); Neutrophils # (A) 5.81 X 10*3/uL (1.80-7.70); Neutrophils % (A) 74.5 %; Platelet Count 155 X 10*3/uL (140-440); RBC 4.59 X 10*6/uL (4.10-5.20); RDW 19.7 % (11.5-14.5); WBC 7.79 X 10*3/uL (4.50-10.00)
[2022-01-24 13:37] LABS: African American GFR (CKD) 131.9 (60.0-200.0); Albumin 2.6 g/dL (3.8-4.9); Albumin/Globulin Ratio 1.08 (1.60-3.17); Anion Gap 9.4 mmol/L (10.00-18.00); Blood Urea Nitrogen 18.2 mg/dL (9.0-27.0); Calcium 7.9 mg/dL (8.7-10.3); Carbon Dioxide 19.6 mmol/L (20.0-27.5); Globulin 2.4 g/dL (1.6-3.3); Non-African American GFR(CKD) 113.8 (60.0-200.0); Potassium 3.5 mmol/L (3.5-5.5); Total Bilirubin 1.3 mg/dL (0.30-1.20)
--- NOTE | 2022-01-24 16:37 | US ---
EXAMINATION TYPE: US venous doppler duplex LE DATE OF EXAM: 01/24/2022 4:21 PM COMPARISON: NONE CLINICAL HISTORY: rule out DVT. empyema, extensive leg swelling, no h/o dvt SIDE PERFORMED: Bilateral TECHNIQUE: The lower extremity deep venous system is examined utilizing real time linear array sonog demetrius with graded compression, doppler sonography and color-flow sonography. VESSELS IMAGED: Common Femoral Vein Deep Femoral Vein Greater Saphenous Vein * Femoral Vein Popliteal Vein Small Saphenous Vein * Proximal Calf Veins (* superficial vessels) Right Leg: Negative for DVT*coud not see dist FV w/o color on, unable to attempt distal FV compressi on - good blood flow was seen Left Leg: Negative for DVT IMPRESSION: Exam fails to demonstrate evidence of deep vein thrombosis in both legs.
[2022-01-24] MEDS: FERROUS SULFATE 325 MG TAB PO SCH (21:24)
[2022-01-25] MEDS: HYDROcodone/APAP 5-325MG 1 EACH TAB PO PRN ×4 (00:22→20:01)
[2022-01-25] MEDS: KETOROLAC 15 MG/ML 1 ML VIAL IVP PRN ×4 (00:24→20:01)
[2022-01-25] MEDS ORDERED: VANCOMYCIN TROUGH DUE 1 EACH MISC MISCELLANE ONE (06:00)
--- NOTE | 2022-01-25 06:55 | XR ---
EXAMINATION TYPE: XR chest 1V portable DATE OF EXAM: 01/25/2022 CLINICAL HISTORY: Difficulty breathing progress study. Left-sided empyema. TECHNIQUE: Single AP portable upright view of the chest is obtained. COMPARISON: Chest x-ray from one day earlier and older studies. FINDINGS: Persistent left basilar pigtail pleural drainage catheter with left lower lung increased o pacity. Patchy right basilar opacity redemonstrated with overlying epicardial pacer leads again seen. Stable left-sided PICC line. Persistent cardiomegaly. Cardiac valve surgical changes redemonstrated. Upper lungs remain clear without pneumothorax. IMPRESSION: Persistent left basilar acute infiltrate and/or atelectasis and likely left-sided pleural fluid collection with left basilar pigtail drainage catheter. Persistent patchy right basilar acute atelectasis and cardiomegaly. No significant change from most recent x-ray.
[2022-01-25] MEDS ORDERED: ALTEPLASE 10 MG in SODIUM CHLORIDE 0.9% 50 ML IRRIGATION ONE (07:01)
[2022-01-25] MEDS ORDERED: DORNASE ALFA 5 MG in SODIUM CHLORIDE 0.9% 50 ML IRRIGATION ONE (07:01)
[2022-01-25] MEDS: ALBUTEROL NEBULIZED 2.5 MG/3 ML INHALATION SCH ×2 (08:10→20:36)
[2022-01-25 08:34] LABS: African American GFR (CKD) >90 (>60 ml/min/1.73 sqM); Anion Gap 11 mmol/L; Blood Urea Nitrogen 19 mg/dL (7-17); Carbon Dioxide 18 mmol/L (22-30); Chloride 106 mmol/L (98-107); Glucose 76 mg/dL (74-99); Non-African American GFR(CKD) >90 (>60 ml/min/1.73 sqM); Sodium 135 mmol/L (137-145)
--- NOTE | 2022-01-25 08:43 | P.PN ---
Subjective Progress Note Date: 01/25/22 Principal diagnosis: Left-sided chest fluid collection, empyema, shortness of breath, chest pain, nonproductive cough, leukocytosis, lactic acidosis, elevated liver enzymes present on admission. Past medical history significant for MRSA bacterial endocarditis with tricuspid valve repair in February 2020 at [facility], IV heroin abuse, hepatitis C, current tobacco dependence, right hip debridement secondary to MRSA infection, Covid infection in November 2021, medical no ncompliance with multiple episodes of leaving AMA in the past POD #4 placement of left sided pigtail catheter by interventional radiology with removal of 660 mL purulent drainage. The patient was seen and examined in follow-up today 01/25/2022 at her bedside on the fourth floor medical surgical unit. She denies any complaints of pain or shortness of breath at this time and states that she feels much improved today from days previous. She reports that she has been up ambulating in her room and sitting up in the chair for most of the day yesterday. Oxygen saturations are 97% on room air and she is achieving 1500 mL on her incentive spirometry with encouragement. Left pleural pigtail catheter remains in place to low continuous wall suction -20 cm H2O. No air leak is present. She was instilled with alteplase/dornase pleural instillation yesterday which was her third total dose with 400 mL of thin cloudy serosanguineous drainage drained in the last 24 hours. She has been afebrile the last 24 hours. She continues on vancomycin for MRSA cultured in her pleural fluid. Antibiotics are being managed by infectious disease. Objective - Vital Signs Vital signs: Vital Signs Temp 97.9 F 01/25/22 07:25 Pulse 97 01/25/22 07:25 Resp 16 01/25/22 07:25 BP 104/72 01/25/22 07:25 Pulse Ox 98 01/25/22 07:25 FiO2 Intake & Output 01/24/22 01/25/22 01/25/22 18:59 06:59 18:59 Output Total 350 70 Balance -350 -70 Output: Chest Tube Drainage 350 70 Chest Tube Left Posterior 350 70 Chest Other: # Voids 2 - Exam CONSTITUTIONAL: Appears comfortable, cooperative, no acute distress RESPIRATORY: Lungs sounds diminished bilaterally, left greater than right. Respirations are symmetrical, nonlabored. Currently on room air with oxygen saturation 97% and is achieving 1500 mL on her incentive spirometry. Strong nonproductive cough. CARDIOVASCULAR: S1, S2 present. Regular rate and rhythm. Palpable peripheral pulses bilaterally. No edema present. GASTROINTESTINAL: Abdomen soft, nontender, nondistended. Active bowel sounds present 4 quadrants. Tolerating diet. GENITOURINARY: Continues to void. INTEGUMENTARY: Skin is warm and dry, no clubbing or cyanosis is present. Dressing clean, dry and intact to her left chest pigtail catheter. NEUROLOGIC: Cranial nerves II through XII intact MUSKULOSKELETAL: Able to move all extremities, strength equal bilaterally PSYCHIATRIC: Alert and oriented to person place and time, appropriate affect, intact judgment and insight INVASIVE LINES AND TUBES: Left pigtail catheter present to low continuous wall suction -20 cm H2O, no air leaks present, 400 mL of cloudy serosanguineous drainage output in the last 24 hours. Left arm PICC line remains in place. - Allied health notes Allied health notes reviewed: nursing - Labs CBC & Chem 7: 01/24/22 06:24 01/24/22 06:24 Labs: Abnormal Lab Results - Last 24 Hours (Table) 01/24/22 01/24/22 Range/Units 06:24 06:24 Hgb 11.7 L (12.0-15.0) g/dL Hct 37.1 L (37.2-46.3) % MCH 25.5 L (27.0-32.0) pg MCHC 31.5 L (32.0-37.0) g/dL RDW 19.7 H (11.5-14.5) % Sodium 132 L (135-145) mmol/L Carbon Dioxide 19.6 L (20.0-27.5) mmol/L Anion Gap 9.40 L (10.00-18.00) mmol/L BUN/Creatinine Ratio 26.00 H (12.00-20.00) Ratio Calcium 7.9 L (8.7-10.3) mg/dL Total Bilirubin 1.30 H (0.30-1.20) mg/dL AST 131 H (13-35) U/L ALT 200 H (8-44) U/L Total Protein 5.0 L (6.2-8.2) g/dL Albumin 2.6 L (3.8-4.9) g/dL Albumin/Globulin Ratio 1.08 L (1.60-3.17) g/dL Microbiology - Last 24 Hours (Table) 01/21/22 15:30 Anaerobic Culture - Preliminary Pleural Fluid 01/19/22 19:16 Blood Culture - Preliminary Blood No Growth after 120 hours 01/19/22 19:23 Blood Culture - Preliminary Blood No Growth after 120 hours 01/21/22 20:21 Gram Stain - Final Sputum Sputum Culture - Final Bridget albicans - Imaging and Cardiology Chest x-ray: report reviewed, image reviewed Assessment and Plan Assessment: 1. Left-sided chest fluid collection, empyema, status post left-sided pigtail catheter placement by interventional radiology, culture from the pleural fluid shows MRSA 2. Shortness of breath, chest pain, nonproductive cough, secondary to above 3. Leukocytosis, lactic acidosis present on admission 4. Elevated liver enzymes present on admission 5. 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 IV heroin abuse which she stopped only prior to nursing home term 7. History of hepatitis C 8. Chronic ongoing tobacco dependence 9. History of right hip surgery secondary to MRSA infection 10. Covid infection in November 2021 11. Medical noncompliance with history of multiple times leaving AMA Plan: 1. Will instill alteplase/dornase today through pigtail catheter which will be a total of 4 doses administered and she will receive a fifth dose of alteplase/dornase tomorrow 01/26/2022. Monitor and record drainage. Keep left chest pigtail catheter to low continuous wall suction -20 cm H2O. 2. Encourage Incentive spirometry use 10 times every hour while awake. 3. Antibiotic management per infectious disease. Pleural fluid was sent for culture, positive for MRSA. 4. Increase activity as tolerated. Out of bed for all meals. 5. Discussed the importance of risk modification, counseling regarding smoking cessation and IV heroin cessation was provided to the patient. 6. Continue supportive therapy. 7. Medical management of other comorbidities per primary care, pulmonology and infectious disease. 8. Continue to monitor daily chest x-rays. 9. After her fifth dose of alteplase/dornase tomorrow we will obtain a computed tomography scan of her chest without contrast in the afternoon. 10. More recommendations to follow based on patient's clinical course. Time with Patient: Greater than 30
[2022-01-25 08:53] LABS: Potassium 4.1 mmol/L (3.5-5.1)
[2022-01-25] MEDS: MULTIVITAMINS, THERA 1 EACH TAB PO SCH (09:16)
[2022-01-25] MEDS: PANTOPRAZOLE 40 MG TABLET PO SCH (09:16)
[2022-01-25] MEDS: BENZONATATE 100 MG CAP PO SCH ×3 (09:17→20:49)
[2022-01-25] MEDS: ASPIRIN 81 MG PO SCH (09:17)
[2022-01-25] MEDS: FUROSEMIDE 10 MG/ML 2 ML VIAL IV SCH ×2 (09:17→20:49)
--- NOTE | 2022-01-25 11:05 | P.PN ---
Subjective Progress Note Date: 01/25/22 Principal diagnosis: Left-sided empyema This is a pleasant 31-year-old female patient with a known history of hepatitis C, IV drug abuse with heroin last used 11/03/2021, endocarditis, mitral valve replacement in 2019 at [facility], MRSA and a right hip. Chest has chronic and ongoing tobacco dependence. She also states she had a CoVID infection in November and has been short of breath since that time. She is currently incarcerated. [facility] with complaints of right-sided chest pain, shortness of breath, cough and congestion. Chest x-ray revealed cardiomediastinal silhouette moderately enlarged. Postsurgical changes with valvular prosthesis. No evidence of pleural effusion. No focal consolidation. No pneumothorax. CT angiogram ruled out pulmonary embolism however there is noted large fluid collection within the anterior medial left pleural space with associated atelectasis. There is suggestion of enhancing pleura. No focal consolidation or pneumothorax. However, the CAT scan was further reviewed and is now being reported as a large fluid collection most likely in the pericardium. Echocardiogram is pending. EKG reveals normal sinus rhythm with nonspecific ST and T wave abnormalities. Ultrasound of the liver revealed cholelithiasis with no definitive evidence for gallbladder wall thickening or. Cholestatic fluid. Liver was within normal limits. White count 9.1. Hemoglobin 12.6. Platelets 334. INR 1.7. D-dimer 8.16. Sodium 131. Potassium 5.1. Bicarb 16. BUN 19. Creatinine 0.63. Lactic acid 5.8, 4.9. AST 360. ALT 183. Troponin negative 1. The patient is seen in consultation in the emergency department. She is awake and alert in no acute distress. She is maintaining good O2 saturations in the mid 90s on room air. She's been afebrile. Slightly tachycardic. Hemodynamically stable. She is still having issues with some right-sided chest discomfort. Some shortness of breath. Nonproductive cough. She was initiated on vancomycin and Zosyn, 0.9 normal saline at 100. Patient was reevaluated today on 01/21/22, remains in the ICU awaiting to be transferred possibly to [facility]. I had a long discussion with the radiologist yesterday on multiple occasions and the radiologist is extremely reluctant to consider CT-guided or ultrasound-guided drainage of the fluid collection noted on her initial CT of the chest and chest x-ray. He feels that this is a fluid collection that is in close proximity to the heart, and still believe this may be pericardial fluid or cysts. Possibility of empyema is not entirely ruled out, but according to him this is not a fluid that seems to be consistent with empyema. At any rate him and the cardiothoracic surgery on the case, are extremely reluctant to do any surgical intervention. Hence the recommendation is to transfer the patient to a tertiary care center. 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 in the past. I discussed her condition today with the admitting physician Dr. Pineda, and apparently he is in the process according to him of making the transfer take place to [facility]. Patient was reevaluated today on 01/22/22, after evaluating the patient yesterday, we discussed with Dr. Rick/interventional radiologist the patient's condition, and he agreed to proceed with CT-guided needle aspiration of the fluid collection in the left pleural space, and if seems to be infected he would proceed with a pigtail catheter placement. Indeed this was done yesterday, and he was able to drain over 700 mL of pus out of the pleural space, he went ahead and placed a pigtail catheter, and connected to Pleur-evac. The fluid is now slightly serosanguineous, was initially purulent. Cultures on the fluid are pending patient in the meantime is receiving vancomycin and cefepime. Based on the final cultures will adjust antibiotics accordingly. Clinically the patient is feeling much better today, breathing a lot easier. She denies any discomfort, she had a follow-up chest x-ray which showed improvement. Patient is doing well with incentive spirometry, she is now on room air and O2 saturation is 94%. WBC count today is 9.9 hemoglobin 13.6 electrolytes are normal renal profile is normal bicarb is a bit low at 17. The Gram stain of the pleural fluid is negative so far, however there is many polymorphonuclear leukocytes, no organisms seen yet. Cultures are pending Reevaluated today on 01/25/22, patient continues to improve, she is doing better. Still receiving alteplase via her left pigtail catheter. Clinically the patient is doing better, breathing easier, and she continues to have significant amount of drainage in the pleural VAC. I believe the patient will need to have a follow-up CT of the chest in the next 24 hours to determine whether the patient is improving or she may eventually require decortication. No labs today except she had a relatively normal electrolytes. Objective - Vital Signs Vital signs: Vital Signs Temp 97.9 F 01/25/22 07:25 Pulse 97 01/25/22 07:25 Resp 16 01/25/22 07:25 BP 104/72 01/25/22 07:25 Pulse Ox 98 01/25/22 07:25 FiO2 Intake & Output 01/24/22 01/25/22 01/25/22 18:59 06:59 18:59 Output Total 350 70 Balance -350 -70 Output: Chest Tube Drainage 350 70 Chest Tube Left Posterior 350 70 Chest Other: # Voids 2 1 - Exam Physical Exam: Revealed a 51-year-old female in no distress, on room air, relatively asymptomatic. Head: Atraumatic, normocephalic. HEENT:[Neck is supple.] [No neck masses.] [No thyromegaly.] [No JVD.] Chest: [Clear throughout, no crackles, no rhonchi, no wheezes.] Pigtail catheter noted just below the left breast anteriorly Cardiac Exam: [Normal S1 and S2, no S3 gallop, no murmur.] Abdomen: [Soft, nontender, no megaly, no rebound, no guarding, normal bowel sounds.] Extremities: [No clubbing, no edema, no cyanosis.] Neurological Exam: [No focal neurologic deficit.] Alert oriented 3. Psychiatric: Normal mood affect and normal mental status examination. Skin: No rashes. - Labs CBC & Chem 7: 01/24/22 06:24 01/25/22 07:04 Labs: Abnormal Lab Results - Last 24 Hours (Table) 01/24/22 01/24/22 01/25/22 Range/Units 06:24 06:24 07:04 Hgb 11.7 L (12.0-15.0) g/dL Hct 37.1 L (37.2-46.3) % MCH 25.5 L (27.0-32.0) pg MCHC 31.5 L (32.0-37.0) g/dL RDW 19.7 H (11.5-14.5) % Sodium 132 L 135 L (135-145) mmol/L Carbon Dioxide 19.6 L 18 L (20.0-27.5) mmol/L Anion Gap 9.40 L (10.00-18.00) mmol/L BUN 19 H (7-17) mg/dL BUN/Creatinine Ratio 26.00 H (12.00-20.00) Ratio Calcium 7.9 L 8.0 L (8.7-10.3) mg/dL Total Bilirubin 1.30 H (0.30-1.20) mg/dL AST 131 H (13-35) U/L ALT 200 H (8-44) U/L Total Protein 5.0 L (6.2-8.2) g/dL Albumin 2.6 L (3.8-4.9) g/dL Albumin/Globulin Ratio 1.08 L (1.60-3.17) g/dL Microbiology - Last 24 Hours (Table) 01/21/22 15:30 Anaerobic Culture - Preliminary Pleural Fluid 01/19/22 19:16 Blood Culture - Preliminary Blood No Growth after 120 hours 01/19/22 19:23 Blood Culture - Preliminary Blood No Growth after 120 hours 01/21/22 20:21 Gram Stain - Final Sputum Sputum Culture - Final Bridget albicans Assessment and Plan Assessment: Impression: Left-sided empyema, status post pigtail catheter placement by interventional radiology on 01/21/22. Multiple comorbidities including history of bacterial endocarditis and tricuspid valve repair, history of heroin abuse, history of hepatitis C, and history of MRSA involving her right hip. Recommendation: Continue antibiotics, patient had MRSA empyema being followed by infectious disease, remains on vancomycin. She is on cefepime Continue pigtail catheter connection to pleural VAC and continue low inter mittent suction. Thoracic surgery to continue to instill alteplase in the pleural space for lysis of loculations from empyema. Consider CT of the chest in the next 24 hour PICC line has been placed for long-term IV antibiotic We'll continue to follow Time with Patient: Less than 30
[2022-01-25] MEDS ORDERED: VANCOMYCIN 1,000 MG in SODIUM CHLORIDE 0.9% 250 ML IVPB SCH (12:00)
[2022-01-25 12:43] LABS: Basophils # (A) 0.04 X 10*3/uL (0.00-0.10); Basophils % (A) 0.5 %; Eosinophils # (A) 0.12 X 10*3/uL (0.04-0.35); Eosinophils % (A) 1.6 %; HCT 41.8 % (37.2-46.3); HGB 13.2 g/dL (12.0-15.0); Immature Grans, Automated 1.2 %; Lymphocytes % (A) 21.9 %; MCH 25.7 pg (27.0-32.0); MCHC 31.6 g/dL (32.0-37.0); MCV 81.5 fL (80.0-97.0); Mean Platelet Volume 10.3 fL (9.5-12.2); Monocytes # (A) 0.46 X 10*3/uL (0.20-1.00); Monocytes % (A) 6.3 %; NRBC Per 100 WBC 0 /100 WBCS (0.0-0.0); Neutrophils % (A) 68.5 %; Platelet Count 140 X 10*3/uL (140-440); RBC 5.13 X 10*6/uL (4.10-5.20); WBC 7.31 X 10*3/uL (4.50-10.00)
[2022-01-25] MEDS: FERROUS SULFATE 325 MG TAB PO SCH (20:49)
--- NOTE | 2022-01-25 23:16 | P.PN ---
Subjective Progress Note Date: 01/24/22 Principal diagnosis: Left-sided empyema Patient is a 31-year-old female with a past medical history significant for IV drug use history of mitral valve endocarditis presented to hospital with left-sided chest pain or difficulty in breathing and this patient has been diagnosed with a left-sided empyema. patient is status post placement of left sided pigtail catheter by interventional radiology with removal of 660 mL purulent drainage on 01/21/2022 On today's evaluation that is 01/24/2022, the patient remains to be afebrile, the patient pain to the left side of the chest area is current controlled, the patient is breathing comfortably on room area, the patient denies any cough or sputum production no abdominal pain no diarrhea Objective - Vital Signs Vital signs: Vital Signs Temp 98 F 01/24/22 08:00 Pulse 99 01/24/22 08:00 Resp 17 01/24/22 08:00 BP 117/77 01/24/22 08:00 Pulse Ox 99 01/24/22 08:00 FiO2 Intake & Output 01/23/22 01/24/22 01/24/22 18:59 06:59 18:59 Output Total 760 150 Balance -760 -150 Output: Chest Tube Drainage 760 150 Chest Tube Left Posterior 760 150 Chest Other: Voiding Method Bedside Commode Bedside Commode # Voids 5 4 - Exam GENERAL DESCRIPTION: Middle-age female lying in bed in no distress RESPIRATORY SYSTEM: Unlabored breathing , decreased breath sounds at bases HEART: S1 S2 regular rate and rhythm , ABDOMEN: Soft , no tenderness EXTREMITIES: No edema feet - Labs CBC & Chem 7: 01/25/22 07:04 01/25/22 07:04 Labs: Abnormal Lab Results - Last 24 Hours (Table) 01/22/22 01/24/22 01/24/22 Range/Units 04:00 06:24 06:24 Hgb 11.7 L (12.0-15.0) g/dL Hct 37.1 L (37.2-46.3) % MCH 25.5 L (27.0-32.0) pg MCHC 31.5 L (32.0-37.0) g/dL RDW 19.7 H (11.5-14.5) % Sodium 132 L (135-145) mmol/L Carbon Dioxide 19.6 L (20.0-27.5) mmol/L Anion Gap 9.40 L (10.00-18.00) mmol/L BUN/Creatinine Ratio 26.00 H (12.00-20.00) Ratio Calcium 7.9 L (8.7-10.3) mg/dL Total Bilirubin 1.30 H (0.30-1.20) mg/dL AST 131 H (13-35) U/L ALT 200 H (8-44) U/L Total Protein 5.0 L (6.2-8.2) g/dL Albumin 2.6 L (3.8-4.9) g/dL Albumin/Globulin Ratio 1.08 L (1.60-3.17) g/dL Hep C IgG Ab Reactive A (Nonreactive) Microbiology - Last 24 Hours (Table) 01/21/22 20:21 Gram Stain - Final Sputum Sputum Culture - Final Bridget albicans 01/21/22 17:30 Gram Stain - Final Pleural Fluid Body Fluid Culture - Final Methicillin resist S. aureus 01/21/22 20:21 Acid Fast Bacilli Smear - Final Aspirate Acid Fast Bacilli Culture - Preliminary 01/19/22 19:23 Blood Culture - Preliminary Blood No Growth after 96 hours 01/19/22 19:16 Blood Culture - Preliminary Blood No Growth after 96 hours Assessment and Plan (1) Empyema Current Visit: Yes Status: Acute Code(s): J86.9 - PYOTHORAX WITHOUT FISTULA SNOMED Code(s): 497102014 Plan: 1patient presented to hospital with left chest pain cough in this patient with evidence of abnormal CT concerning for possible empyema patient to have a history of IV drug use and will need to cover for both resistant gram-positive as well as gram-negative pathogen 2Patient is status post placement of left sided pigtail catheter by interventional radiology with removal of 660 mL purulent drainage, cultures are currently growing presumptive MRSA, blood culture has been negative 3-patient seemed to showing clinical improvement and will continue with vancomycin while watching kidney function closely Time with Patient: Less than 30
--- NOTE | 2022-01-25 23:18 | P.PN ---
Subjective Progress Note Date: 01/25/22 Principal diagnosis: Left-sided empyema Patient is a 31-year-old female with a past medical history significant for IV drug use history of mitral valve endocarditis presented to hospital with left-sided chest pain or difficulty in breathing and this patient has been diagnosed with a left-sided empyema. patient is status post placement of left sided pigtail catheter by interventional radiology with removal of 660 mL purulent drainage on 01/21/2022 On today's evaluation that is 01/25/2022, the patient continues to be afebrile, the patient pain to the left side of the chest area is controlled with current pain medication, the patient is breathing comfortably on room area, the patient denies any cough or sputum production no abdominal pain no diarrhea, no new symp toms Objective - Vital Signs Vital signs: Vital Signs Temp 97.5 F L 01/25/22 14:57 Pulse 98 01/25/22 14:57 Resp 17 01/25/22 14:57 BP 105/73 01/25/22 14:57 Pulse Ox 99 01/25/22 14:57 FiO2 Intake & Output 01/24/22 01/25/22 01/25/22 18:59 06:59 18:59 Output Total 350 70 290 Balance -350 -70 -290 Output: Chest Tube Drainage 350 70 290 Chest Tube Left Posterior 350 70 290 Chest Other: # Voids 2 1 # Bowel Movements 1 - Exam GENERAL DESCRIPTION: Middle-age female lying in bed in no distress RESPIRATORY SYSTEM: Unlabored breathing , decreased breath sounds at bases HEART: S1 S2 regular rate and rhythm , ABDOMEN: Soft , no tenderness EXTREMITIES: No edema feet - Labs CBC & Chem 7: 01/25/22 07:04 01/25/22 07:04 Labs: Abnormal Lab Results - Last 24 Hours (Table) 01/25/22 01/25/22 Range/Units 07:04 07:04 MCH 25.7 L (27.0-32.0) pg MCHC 31.6 L (32.0-37.0) g/dL RDW 20.0 H (11.5-14.5) % Immature Gran # 0.09 H (0.00-0.04) X 10*3/uL Sodium 135 L (137-145) mmol/L Carbon Dioxide 18 L (22-30) mmol/L BUN 19 H (7-17) mg/dL Calcium 8.0 L (8.4-10.2) mg/dL Microbiology - Last 24 Hours (Table) 01/21/22 15:30 Anaerobic Culture - Preliminary Pleural Fluid 01/19/22 19:16 Blood Culture - Preliminary Blood No Growth after 120 hours 01/19/22 19:23 Blood Culture - Preliminary Blood No Growth after 120 hours 01/21/22 20:21 Gram Stain - Final Sputum Sputum Culture - Final Bridget albicans Assessment and Plan (1) Empyema Current Visit: Yes Status: Acute Code(s): J86.9 - PYOTHORAX WITHOUT FISTULA SNOMED Code(s): 156658585 Plan: 1patient presented to hospital with left chest pain cough in this patient with evidence of abnormal CT concerning for possible empyema patient to have a history of IV drug use and will need to cover for both resistant gram-positive as well as gram-negative pathogen 2Patient is status post placement of left sided pigtail catheter by inter ventional radiology with removal of 660 mL purulent drainage, cultures are currently growing presumptive MRSA, blood culture has been negative 3-patient seemed to have shown clinical improvement and will continue with vancomycin while watching kidney function closely 4-patient will need a PICC line and placement for continuation of outpatient IV vancomycin therapy Time with Patient: Less than 30
--- NOTE | 2022-01-25 23:58 | PN ---
PROGRESS NOTE DATE OF SERVICE: 01/24/2022 SUBJECTIVE: This 31-year-old woman, who was admitted with empyema with left-sided chest tube drainage. The patient also had bilateral leg edema, also the patient had history of substance abuse. No chest pain. No palpitations. No fever. OBJECTIVE: VITAL SIGNS: Pulse is 99, blood pressure 105/70, respirations 18. CHEST: Breath sounds diminished on the left side. CARDIOVASCULAR: S1, S2. ABDOMEN: Soft. LEGS: Bilateral leg edema. NERVOUS SYSTEM: Nonfocal. LABORATORY DATA: Reviewed. ASSESSMENT: 1. Empyema on the left side with chest tube drainage. 2. History of IV drug abuse. 3. History of COVID-19 infection. 4. Multiple medical issues. RECOMMENDATIONS: I recommend to continue current management with IV antibiotics. We will repeat the labs tomorrow. Closely follow with Dr. Villanueva. Guarded prognosis. Further recommendations to follow. MMODL / IJN: [id number] /
--- NOTE | 2022-01-26 05:01 | PN ---
PROGRESS NOTE DATE OF SERVICE: 01/25/2022 SUBJECTIVE: This 31-year-old woman was admitted with left-sided empyema is being closely monitored. Chest tube drainage and multiple procedures being noted. No fever. No cough. PHYSICAL EXAMINATION: VITAL SIGNS: On exam, pulse is 98, blood pressure n, respirations 17. HEENT: Conjunctivae normal. NECK: Normal. CARDIOVASCULAR: S1 and S2. RESPIRATION: bases. Breath sounds diminished especially in left side also. Chest tube is present. ABDOMEN: Soft. NERVOUS SYSTEM: Focal. LABORATORY DATA: Noted. Bridget from the sputum. ASSESSMENT: 1. Left empyema. 2. Bridget from the sputum. 3. Methicillin-resistant Staphylococcus aureus culture. Positive culture. 4. History of IV drug abuse. RECOMMENDATIONS: It is recommended to continue current management. Continue the broad-spectrum IV antibiotics. Follow cultures closely with Infectious Disease and Pulmonary. Guarded prognosis. For further condition, see orders for details. MMODL / IJN: [id number] / MTDD
[2022-01-26] MEDS: KETOROLAC 15 MG/ML 1 ML VIAL IVP PRN ×3 (06:40→21:11)
[2022-01-26] MEDS: PANTOPRAZOLE 40 MG TABLET PO SCH (06:40)
[2022-01-26] MEDS: HYDROcodone/APAP 5-325MG 1 EACH TAB PO PRN ×3 (06:40→18:50)
[2022-01-26] MEDS ORDERED: DORNASE ALFA 5 MG in SODIUM CHLORIDE 0.9% 50 ML IRRIGATION ONE (07:41)
[2022-01-26] MEDS ORDERED: ALTEPLASE 10 MG in SODIUM CHLORIDE 0.9% 50 ML IRRIGATION ONE (07:41)
[2022-01-26] MEDS: ALBUTEROL NEBULIZED 2.5 MG/3 ML INHALATION SCH ×2 (07:53→19:59)
[2022-01-26 08:08] LABS: African American GFR (CKD) >90 (>60 ml/min/1.73 sqM); Non-African American GFR(CKD) >90 (>60 ml/min/1.73 sqM)
[2022-01-26] MEDS: FUROSEMIDE 10 MG/ML 2 ML VIAL IV SCH (08:20)
[2022-01-26] MEDS: BENZONATATE 100 MG CAP PO SCH ×3 (08:20→21:11)
[2022-01-26] MEDS: MULTIVITAMINS, THERA 1 EACH TAB PO SCH (08:20)
[2022-01-26] MEDS: ASPIRIN 81 MG PO SCH (08:20)
--- NOTE | 2022-01-26 09:16 | P.PN ---
Subjective Progress Note Date: 01/26/22 Principal diagnosis: Left-sided chest fluid collection, empyema, shortness of breath, chest pain, nonproductive cough, leukocytosis, lactic acidosis, elevated liver enzymes present on admission. History of MRSA bacterial endocarditis with tricuspid valve repair in February 2020 at [facility], IV heroin abuse, hepatitis C, current tobacco dependence, right hip debridement secondary to MRSA infection, Covid infection in November 2021, medical noncompliance with multiple episodes of leaving AMA in the past POD #5 placement of left sided pigtail catheter by interventional radiology with removal of 660 mL purulent drainage The patient was seen and examined this morning sitting up in a chair in the medical surgical unit in no acute distress. She denies any increased significant pain, however she does complain of feeling worse today. She reports her breathing is a bit worse, she feels very swollen, and states her "kidneys hurt" with dark urine output. Left sided pigtail catheter present to continuous wall suction, 340 mL output in the last 24 hours, alteplase/dornase was instilled again this morning which is her fifth dose. During instillation there was some leakage around the catheter site. We will obtain chest CT this afternoon to evaluate progress. Pleural fluid was positive for MRSA, remains on IV vancomycin. She has been able to ambulate in her room. Remains on room air with oxygen saturation in the high 90s, only able to achieve 1000 mL on incentive spirometry this morning. Objective - Vital Signs Vital signs: Vital Signs Temp 97.4 F L 01/26/22 07:30 Pulse 105 H 01/26/22 07:30 Resp 18 01/26/22 07:30 BP 115/82 01/26/22 07:30 Pulse Ox 99 01/26/22 07:30 FiO2 Intake & Output 01/25/22 01/26/22 01/26/22 18:59 06:59 18:59 Output Total 290 50 Balance -290 -50 Output: Chest Tube Drainage 290 50 Chest Tube Left Posterior 290 50 Chest Other: # Voids 1 2 # Bowel Movements 1 1 - Exam CONSTITUTIONAL: Appears tearful and upset RESPIRATORY: Lungs sounds diminished bilaterally, left greater than right. Respirations even, nonlabored. Currently on room air with oxygen saturation 98%. Strong nonproductive cough. CARDIOVASCULAR: S1, S2 present. Regular rate and rhythm. Palpable peripheral pulses bilaterally. Bilateral lower extremity edema present. GASTROINTESTINAL: Abdomen soft, nontender, nondistended. Active bowel sounds present 4 quadrants. Tolerating diet. Positive bowel movement 5 in the last 24 hours per patient GENITOURINARY: Continues to void INTEGUMENTARY: Skin is warm and dry NEUROLOGIC: Cranial nerves II through XII intact MUSKULOSKELETAL: Able to move all extremities, strength equal bilaterally PSYCHIATRIC: Alert and oriented to person place and time, appropriate affect, intact judgment and insight INVASIVE LINES AND TUBES: Left pigtail catheter present to -20 cm continuous wall suction, no air leaks present, 50 mL cloudy serosanguineous drainage overnight, 340 mL in the last 24 hours. Left sided dual-lumen PICC in place - Allied health notes Allied health notes reviewed: nursing - Labs CBC & Chem 7: 01/25/22 07:04 01/26/22 07:37 Labs: Abnormal Lab Results - Last 24 Hours (Table) 01/25/22 Range/Units 07:04 MCH 25.7 L (27.0-32.0) pg MCHC 31.6 L (32.0-37.0) g/dL RDW 20.0 H (11.5-14.5) % Immature Gran # 0.09 H (0.00-0.04) X 10*3/uL Microbiology - Last 24 Hours (Table) 01/21/22 15:30 Anaerobic Culture - Final Pleural Fluid 01/19/22 19:16 Blood Culture - Final Blood No Growth after 144 hours 01/19/22 19:23 Blood Culture - Final Blood No Growth after 144 hours - Imaging and Cardiology CT scan - chest: pending Assessment and Plan Assessment: 1. Left-sided chest fluid collection, empyema, status post left-sided until catheter placement by interventional radiology, fluid positive for MRSA 2. Shortness of breath, chest pain, nonproductive cough, secondary to above 3. Leukocytosis, lactic acidosis present on admission 4. Elevated liver enzymes present on admission 5. 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 IV heroin abuse which she stopped only prior to longterm term 7. History of hepatitis C 8. Current tobacco dependence 9. History of right hip surgery secondary to MRSA infection 10. Covid infection in November 2021 11. Medical noncompliance with history of multiple times leaving AMA Plan: 1. Alteplase/dornase instilled this morning through pigtail catheter, fifth dose. Monitor and record drainage. May disconnect from suction for patient to ambulate in the hallway 2. Will obtain CT of the chest this afternoon to review progress 3. Encourage incentive spirometry use 4. Antibiotic management per infectious disease 5. Increase activity as tolerated 6. Counseling regarding smoking cessation and IV heroin cessation was provided to the patient 7. Continue supportive therapy 8. Medical management of other comorbidities per primary care, pulmonology 9. More recommendations to follow
[2022-01-26] MEDS: VANCOMYCIN 1,000 MG in SODIUM CHLORIDE 0.9% 250 ML IVPB SCH (11:44)
[2022-01-26 13:06] VITALS: BMI 28.8
--- NOTE | 2022-01-26 13:22 | P.PN ---
Subjective Progress Note Date: 01/26/22 This is a pleasant 31-year-old female patient with a known history of hepatitis C, IV drug abuse with heroin last used 11/03/2021, endocarditis, mitral valve replacement in 2019 at [facility], MRSA and a right hip. Chest has chronic and ongoing tobacco dependence. She also states she had a CoVID infection in November and has been short of breath since that time. She is currently incarcerated. [facility] with complaints of right-sided chest pain, shortness of breath, cough and congestion. Chest x-ray revealed cardiomediastinal silhouette moderately enlarged. Postsurgical changes with valvular prosthesis. No evidence of pleural effusion. No focal consolidation. No pneumothorax. CT angiogram ruled out pulmonary embolism however there is noted large fluid collection within the anterior medial left pleural space with associated atelectasis. There is suggestion of enhancing pleura. No focal consolidation or pneumothorax. However, the CAT scan was further reviewed and is now being reported as a large fluid collection most likely in the pericardium. Echocardiogram is pending. EKG reveals normal sinus rhythm with nonspecific ST and T wave abnormalities. Ultrasound of the liver revealed cholelithiasis with no definitive evidence for gallbladder wall t hickening or. Cholestatic fluid. Liver was within normal limits. White count 9.1. Hemoglobin 12.6. Platelets 334. INR 1.7. D-dimer 8.16. Sodium 131. Potassium 5.1. Bicarb 16. BUN 19. Creatinine 0.63. Lactic acid 5.8, 4.9. AST 360. ALT 183. Troponin negative 1. The patient is seen in consultation in the emergency department. She is awake and alert in no acute distress. She is maintaining good O2 saturations in the mid 90s on room air. She's been afebrile. Slightly tachycardic. Hemodynamically stable. She is still having issues with some right-sided chest discomfort. Some shortness of breath. Nonproductive cough. She was initiated on vancomycin and Zosyn, 0.9 normal saline at 100. Patient was reevaluated today on 01/21/22, remains in the ICU awaiting to be transferred possibly to [facility]. I had a long discussion with the radiologist yesterday on multiple occasions and the radiologist is extremely reluctant to consider CT-guided or ultrasound-guided drainage of the fluid collection noted on her initial CT of the chest and chest x-ray. He feels that this is a fluid collection that is in close proximity to the heart, and still believe this may be pericardial fluid or cysts. Possibility of empyema is not entirely ruled out, but according to him this is not a fluid that seems to be consistent with empyema. At any rate him and the cardiothoracic surgery on the case, are extremely reluctant to do any surgical intervention. Hence the recommendation is to transfer the patient to a tertiary care center. 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 I discussed her condition today with the admitting physician Dr. Pineda, and apparently he is in the process according to him of making the transfer take place to [facility]. Patient was reevaluated today on 01/22/22, after evaluating the patient yesterday, we discussed with Dr. Rick/interventional radiologist the patient's condition, and he agreed to proceed with CT-guided needle aspiration of the fluid collection in the left pleural space, and if seems to be infected he would proceed with a pigtail catheter placement. Indeed this was done yesterday, and he was able to drain over 700 mL of pus out of the pleural space, he went ahead and placed a pigtail catheter, and connected to Pleur-evac. The fluid is now slightly serosanguineous, was initially purulent. Cultures on the fluid are pending patient in the meantime is receiving vancomycin and cefepime. Based on the final cultures will adjust antibiotics accordingly. Clinically the patient is feeling much better today, breathing a lot easier. She denies any discomfort, she had a follow-up chest x-ray which showed improvement. Patient is doing well with incentive spirometry, she is now on room air and O2 saturation is 94%. WBC count today is 9.9 hemoglobin 13.6 electrolytes are normal renal profile is normal bicarb is a bit low at 17. The Gram stain of the pleural fluid is negative so far, however there is many polymorphonuclear leukocytes, no organisms seen yet. Cultures are pending. The patient is seen today 01/23/2022 in follow-up on the regular medical floor. She is currently sitting up in bed. Awake and alert in no acute distress. She is still having some left-sided chest discomfort. Left chest catheter remains in place. She did receive alteplase/dornase yesterday with 400 ML's of cloudy bloody fluid returned. Today's chest x-ray shows continued effusion. Initial pleural fluid cultures are positive for presumptive MRSA. White count 9.8. Hemoglobin 13.1. Platelets 144. Sodium 1:30. Potassium 3.6. Bicarb 16. BUN 18. Creatinine 0.68. AST 296. ALT 285. Vancomycin trough 24.7. She is continued on vancomycin and cefepime. Left upper extremity PICC line remains in place. Remains on IV diuretics. She is currently afebrile. Maintaining O2 saturation in the mid 90s on room air. The patient is seen today 01/24/2022 in follow-up on the regular medical floor. She is awake and alert in no acute distress. Maintaining good O2 saturations 90s on room air. Chest x-ray continues to show persistent left basilar acute infiltrate/atelectasis and likely left-sided pleural fluid collection with left basilar pigtail catheter drainage in place. Persistent patchy right basilar infiltrate/atelectasis and cardiomegaly. No significant change. Her left-sided chest discomfort pain is well controlled. Left-sided chest tube remains in place. She did have alteplase/dornase infusion again yesterday with 900 mL out. Plan is for repeat infusions today and tomorrow and a follow-up CAT scan on Wednesday. CT services are on the case. Pleural fluid culture was positive for MRSA. Sputum culture with Bridget. She is continued on vancomycin. Cefepime was discontinued. ID services are on the case. The patient is seen today 01/26/2022 in follow-up on the regular medical floor. She is currently up ambulating in her room. She is tearful today. She is complaining of lower extremity edema. She is complaining of leaking around her left-sided chest tube. Pleural fluid culture was positive for MRSA. Sputum culture revealed no growth. Urine culture revealed no growth. Blood cultures revealed no growth. Creatinine 0.62. GFR greater than 90. She is continued on vancomycin. Lasix 20 mg IV twice a day. No accurate I&O. CT services did give alteplase/dornase infusion again today. She did have 340 ML's at the past 24 hours. Follow-up computed tomography scan of the chest pending. Objective - Vital Signs Vital signs: Vital Signs Temp 97.4 F L 01/26/22 07:30 Pulse 84 01/26/22 08:20 Resp 18 01/26/22 08:20 BP 115/82 01/26/22 07:30 Pulse Ox 99 01/26/22 07:30 FiO2 Intake & Output 01/25/22 01/26/22 01/26/22 18:59 06:59 18:59 Output Total 290 50 10 Balance -290 -50 -10 Weight 76.1 kg Output: Chest Tube Drainage 290 50 10 Chest Tube Left Posterior 290 50 10 Chest Other: # Voids 1 2 # Bowel Movements 1 1 - Exam GENERAL EXAM: Alert, pleasant 31-year-old female, on room air, up ambulating in her room, fairly comfortable in no apparent distress. HEAD: Normocephalic. EYES: Normal reaction of pupils, equal size. NOSE: Clear with pink turbinates. THROAT: No erythema or exudates. NECK: No masses, no JVD. CHEST: No chest wall deformity. Left-sided chest tube remains in place. To Ple ur-evac to wall suction. LUNGS: Equal air entry with crackles in the left lung base, diminished. CVS: S1 and S2 normal with no audible murmur, regular rhythm. ABDOMEN: No hepatosplenomegaly, normal bowel sounds, no guarding or rigidity. SPINE: No scoliosis or deformity SKIN: No rashes CENTRAL NERVOUS SYSTEM: No focal deficits, tone is normal in all 4 extremities. EXTREMITIES: There is no peripheral edema. No clubbing, no cyanosis. Peripheral pulses are intact. - Labs CBC & Chem 7: 01/25/22 07:04 01/26/22 07:37 Labs: Microbiology - Last 24 Hours (Table) 01/21/22 20:21 Fungal Culture - Preliminary Aspirate Bridget albicans 01/21/22 15:30 Anaerobic Culture - Final Pleural Fluid 01/19/22 19:16 Blood Culture - Final Blood No Growth after 144 hours 01/19/22 19:23 Blood Culture - Final Blood No Growth after 144 hours Assessment and Plan Assessment: Chest pain with shortness of breath secondary to a large fluid collection displacing the heart and appears contiguous with superior pericardial recess. Status post left chest catheter placement on 01/22/2022. Receiving alteplase/dornase infusions per CT services. Chest tube remains attached to P leur-evac to wall suction. Follow-up computed tomography scan of the chest today. Cultures positive for MRSA. Continued vancomycin. History of heroin use, last used 11/03/2021 Recently incarcerated secondary to above History of COVID-19 infection in November 2021 History of bacterial endocarditis with tricuspid valve repair in January 2020 at [facility], maintained on baby aspirin History of hepatitis C Mild transaminitis, ultrasound revealed evidence of cholecystitis without gal lbladder wall thickening, liver within normal limits History of chronic tobacco dependence History of MRSA in the right hip History of hypertension History of acid reflux disease Plan: The patient was seen and evaluated Remains stable and on room air Continued on vancomycin per ID services PICC line in place Left-sided chest tube remains in place Continue infusions of alteplase/dornase per CT services Follow-up computed tomography scan of the chest pending Increase her activity as tolerated Increase her use of the incentive spirometer We will continue to follow I have personally seen and examined the patient, performed the documentation and the assessment and plan as written. Number of minutes spent on the visit: 10.
--- NOTE | 2022-01-26 13:33 | CT ---
EXAMINATION TYPE: CT chest wo con DATE OF EXAM: 01/26/2022 COMPARISON: 01/21/2022 HISTORY: Empyema CT DLP: 305.[address] of the chest was performed with lung and mediastinal window settings submitted. The la ck of contrast limits evaluation of the vascular, mediastinal and parenchymal structures including th e upper abdomen. LUNGS: Left-sided chest tube is redemonstrated. Previously noted empyema which measured approximately 9.2 cm AP dimension by 3.4 cm transverse dimension has resolved almost completely. There is residual inflammatory change seen however no drainable collection is noted at the chest tube site. There is a djacent pleural fluid anteriorly and laterally as well as a lobulated and likely loculated component posteriorly. There is worsening left lower lobe atelectasis and/or infiltrate. Stable right-sided ple ural effusion with AP dimension of 1.5 cm. Right basilar atelectasis is unchanged. Pneumothorax. MEDIASTINUM/NANCY: Thoracic aorta is of normal caliber with limited evaluation given lack of contrast . The heart is not enlarged. No evidence for mediastinal mass. No lymph nodes greater than 1cm. UPPER ABDOMEN: No significant abnormality is seen. OTHER: No significant other abnormality. IMPRESSION: 1. Left-sided chest tube is redemonstrated. Previously noted empyema which measured approximately 9. 2 cm AP dimension by 3.4 cm transverse dimension has resolved almost completely. There is residual in flammatory change seen however no drainable collection is noted at the chest tube site. 2. Increasing pleural effusion, which appears to be lobulated and loculated with increasing left lowe r lobe infiltrate and/or atelectasis.
[2022-01-26] MEDS: FERROUS SULFATE 325 MG TAB PO SCH (21:11)
[2022-01-26] MEDS: FUROSEMIDE 10 MG/ML 4 ML VIAL IV SCH (21:11)
[2022-01-27] MEDS: HYDROcodone/APAP 5-325MG 1 EACH TAB PO PRN ×3 (01:34→21:30)
[2022-01-27] MEDS: KETOROLAC 15 MG/ML 1 ML VIAL IVP PRN ×3 (04:08→23:59)
[2022-01-27] MEDS: VANCOMYCIN 1,000 MG in SODIUM CHLORIDE 0.9% 250 ML IVPB SCH ×2 (04:20→21:44)
[2022-01-27 06:52] LABS: Glucose,Whole Blood 134 mg/dL (70-110)
--- NOTE | 2022-01-27 07:22 | PN ---
PROGRESS NOTE SUBJECTIVE: She is complaining today about severe leg swelling and abdominal swelling, ascites from cirrhosis will be re-evaluated. CT of the chest today shows left-sided chest tube, previously known empyema 3.4 has resolved almost completely. Possibly, chest tube will have to be removed soon. Continue with Lasix for leg edema and third-spacing of fluids in the lower extremities, possibly increase her Lasix dose. OBJECTIVE: VITAL SIGNS: Temperature 98.3, , pulse 84. CARDIOVASCULAR: S1, S2. LUNGS: Scattered rhonchi and wheeze. HEMATOLOGY: Negative for Homans. ASSESSMENT: Third-spacing of fluids in the lower extremities. Wean chest tube as tolerated. Increase Lasix. Prognosis guarded. Follow up in the next 24 to 48 hours. MMODL / IJN: [id number] /
[2022-01-27] MEDS: ALBUTEROL NEBULIZED 2.5 MG/3 ML INHALATION SCH ×2 (07:37→19:40)
--- NOTE | 2022-01-27 08:10 | XR ---
EXAMINATION TYPE: XR chest 1V portable DATE OF EXAM: 01/27/2022 COMPARISON: Chest x-ray 01/25/2022, chest CT 01/26/2022 HISTORY: Empyema TECHNIQUE: Single frontal view of the chest is obtained. FINDINGS: Left-sided PICC line shows the tip near the cavoatrial junction. Epicardial pacing leads a gain noted over the right chest, patient is status post tricuspid valve replacement. Heart size appea rs prominent. There is blunting the left costophrenic angle. Anterior left pigtail catheter is stable . No evident pneumothorax. Question some blunting of the right costophrenic angle. There is spinal cu rvature. IMPRESSION: Probable basilar effusions and associated atelectasis, correlate for pneumonia, patient with known empyema, mediastinal adenopathy, loculated left pleural effusion
[2022-01-27 08:15] LABS: African American GFR (CKD) >90 (>60 ml/min/1.73 sqM); Non-African American GFR(CKD) >90 (>60 ml/min/1.73 sqM)
[2022-01-27] MEDS: BENZONATATE 100 MG CAP PO SCH ×3 (09:46→21:29)
[2022-01-27] MEDS: ASPIRIN 81 MG PO SCH (09:47)
[2022-01-27] MEDS: MULTIVITAMINS, THERA 1 EACH TAB PO SCH (09:47)
[2022-01-27] MEDS: FUROSEMIDE 10 MG/ML 4 ML VIAL IV SCH ×2 (09:47→21:29)
[2022-01-27] MEDS: PANTOPRAZOLE 40 MG TABLET PO SCH (09:47)
--- NOTE | 2022-01-27 10:58 | P.PN ---
Subjective Progress Note Date: 01/27/22 Principal diagnosis: Left-sided chest fluid collection, empyema, shortness of breath, chest pain, nonproductive cough, leukocytosis, lactic acidosis, elevated liver enzymes present on admission. Past medical history significant for MRSA bacterial endocarditis with tricuspid valve repair in February 2020 at [facility], IV heroin abuse, hepatitis C, current tobacco dependence, right hip debridement secondary to MRSA infection, Covid infection in November 2021, medical no ncompliance with multiple episodes of leaving [facility] in the past POD #6 placement of left sided pigtail catheter by interventional radiology with removal of 660 mL purulent drainage. Patient was seen and examined in follow-up today 01/27/2022 at her bedside on the medical surgical unit. Currently she is sitting up in bed eating her breakfast, is awake, alert, oriented 3 and is in no acute distress. Patient denies any complaints of pain or shortness of breath at this time although is complaining of some swelling in her legs and abdomen. She does have +2 pitting edema to her bilateral lower extremities. Left sided anterior chest pigtail catheter remains in place to low continuous wall suction -20 cm H2O. She was instilled with alteplase/dornase pleural instillation yesterday which was her fifth total dose with 0 output from the pigtail catheter in the last 24 hours. No air leak is present. A computed tomography scan of the chest was completed yesterday which the report showed left-sided chest tube read demonstrated, previously noted empyema which measured approximately 9.2 cm AP dimension by 3.4 cm transverse dimension has resolved almost completely. It also showed a residual inflammatory change however no drainable collection is noted at the chest tube site. Pleural fluid cultures from 01/21/2022 was positive for MRSA and she continues on vancomycin for antibiotic coverage which is managed by infectious disease. She remains on room air with oxygen saturations 96%. Objective - Vital Signs Vital signs: Vital Signs Temp 97.4 F L 01/27/22 08:27 Pulse 91 01/27/22 08:27 Resp 18 01/27/22 08:27 BP 110/78 01/27/22 08:27 Pulse Ox 96 01/27/22 08:27 FiO2 Intake & Output 01/26/22 01/27/22 01/27/22 18:59 06:59 18:59 Output Total 30 0 Balance -30 0 Weight 76.1 kg Output: Chest Tube Drainage 30 0 Chest Tube Left Posterior 30 0 Chest Other: Voiding Method Bedside Commode # Voids 3 3 # Bowel Movements 1 2 - Exam CONSTITUTIONAL: Appears comfortable, cooperative, no acute distress RESPIRATORY: Lungs sounds diminished bilaterally, left greater than right. Respirations are symmetrical, nonlabored. Currently on room air with oxygen saturation 9% and is achieving 1500 mL on her incentive spirometry. Strong nonproductive cough. CARDIOVASCULAR: S1, S2 present. Regular rate and rhythm. Palpable peripheral pulses bilaterally. No edema present. GASTROINTESTINAL: Abdomen soft, nontender, nondistended. Active bowel sounds present 4 quadrants. Tolerating diet. GENITOURINARY: Continues to void. INTEGUMENTARY: Skin is warm and dry, no clubbing or cyanosis is present. Dressing clean, dry and intact to her left chest pigtail catheter. NEUROLOGIC: Cranial nerves II through XII intact MUSKULOSKELETAL: Able to move all extremities, strength equal bilaterally PSYCHIATRIC: Alert and oriented to person place and time, appropriate affect, intact judgment and insight INVASIVE LINES AND TUBES: Left pigtail catheter present to low continuous wall suction -20 cm H2O, no air leaks present, 0 mL drainage output in the last 24 hours. Left arm PICC line remains in place. - Allied health notes Allied health notes reviewed: nursing - Labs CBC & Chem 7: 01/25/22 07:04 01/27/22 07:35 Labs: Abnormal Lab Results - Last 24 Hours (Table) 01/27/22 Range/Units 06:49 POC Glucose (mg/dL) 134 H (70-110) mg/dL Microbiology - Last 24 Hours (Table) 01/21/22 20:21 Fungal Culture - Preliminary Aspirate Bridget albicans - Imaging and Cardiology Chest x-ray: report reviewed, image reviewed Assessment and Plan Assessment: 1. Left-sided chest fluid collection, empyema, status post left-sided pigtail catheter placement by interventional radiology, culture from the pleural fluid shows MRSA 2. Shortness of breath, chest pain, nonproductive cough, secondary to above 3. Leukocytosis, lactic acidosis present on admission 4. Elevated liver enzymes present on admission 5. 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 IV heroin abuse which she stopped only prior to longterm term 7. History of hepatitis C 8. Chronic ongoing tobacco dependence 9. History of right hip surgery secondary to MRSA infection 10. Covid infection in November 2021 11. Medical noncompliance with history of multiple times leaving AMA Plan: 1. We will not instill any further alteplase/dornase as the output from the pigtail catheter was 0 in the last 24 hours. Recommend removing the pigtail catheter. 2. Encourage Incentive spirometry use 10 times every hour while awake. 3. Antibiotic management per infectious disease. Pleural fluid was sent for culture, positive for MRSA. 4. Increase activity as tolerated. Out of bed for all meals. 5. Discussed the importance of risk modification, counseling regarding smoking cessation and IV heroin cessation was provided to the patient. 6. Continue supportive therapy. 7. Medical management of other comorbidities per primary care, pulmonology and infectious disease. 8. Continue to monitor daily chest x-rays. 9. More recommendations to follow based on patient's clinical course. Time with Patient: Greater than 30
--- NOTE | 2022-01-27 12:24 | P.PN ---
Subjective Progress Note Date: 01/27/22 This is a pleasant 31-year-old female patient with a known history of hepatitis C, IV drug abuse with heroin last used 11/03/2021, endocarditis, mitral valve replacement in 2019 at [facility], MRSA and a right hip. Chest has chronic and ongoing tobacco dependence. She also states she had a CoVID infection in November and has been short of breath since that time. She is currently incarcerated. [facility] with complaints of right-sided chest pain, shortness of breath, cough and congestion. Chest x-ray revealed cardiomediastinal silhouette moderately enlarged. Postsurgical changes with valvular prosthesis. No evidence of pleural effusion. No focal consolidation. No pneumothorax. CT angiogram ruled out pulmonary embolism however there is noted large fluid collection within the anterior medial left pleural space with associated atelectasis. There is suggestion of enhancing pleura. No focal consolidation or pneumothorax. However, the CAT scan was further reviewed and is now being reported as a large fluid collection most likely in the pericardium. Echocardiogram is pending. EKG reveals normal sinus rhythm with nonspecific ST and T wave abnormalities. Ultrasound of the liver revealed cholelithiasis with no definitive evidence for gallbladder wall t hickening or. Cholestatic fluid. Liver was within normal limits. White count 9.1. Hemoglobin 12.6. Platelets 334. INR 1.7. D-dimer 8.16. Sodium 131. Potassium 5.1. Bicarb 16. BUN 19. Creatinine 0.63. Lactic acid 5.8, 4.9. AST 360. ALT 183. Troponin negative 1. The patient is seen in consultation in the emergency department. She is awake and alert in no acute distress. She is maintaining good O2 saturations in the mid 90s on room air. She's been afebrile. Slightly tachycardic. Hemodynamically stable. She is still having issues with some right-sided chest discomfort. Some shortness of breath. Nonproductive cough. She was initiated on vancomycin and Zosyn, 0.9 normal saline at 100. Patient was reevaluated today on 01/21/22, remains in the ICU awaiting to be transferred possibly to [facility]. I had a long discussion with the radiologist yesterday on multiple occasions and the radiologist is extremely reluctant to consider CT-guided or ultrasound-guided drainage of the fluid collection noted on her initial CT of the chest and chest x-ray. He feels that this is a fluid collection that is in close proximity to the heart, and still believe this may be pericardial fluid or cysts. Possibility of empyema is not entirely ruled out, but according to him this is not a fluid that seems to be consistent with empyema. At any rate him and the cardiothoracic surgery on the case, are extremely reluctant to do any surgical intervention. Hence the recommendation is to transfer the patient to a tertiary care center. 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 I discussed her condition today with the admitting physician Dr. Pineda, and apparently he is in the process according to him of making the transfer take place to [facility]. Patient was reevaluated today on 01/22/22, after evaluating the patient yesterday, we discussed with Dr. Rick/interventional radiologist the patient's condition, and he agreed to proceed with CT-guided needle aspiration of the fluid collection in the left pleural space, and if seems to be infected he would proceed with a pigtail catheter placement. Indeed this was done yesterday, and he was able to drain over 700 mL of pus out of the pleural space, he went ahead and placed a pigtail catheter, and connected to Pleur-evac. The fluid is now slightly serosanguineous, was initially purulent. Cultures on the fluid are pending patient in the meantime is receiving vancomycin and cefepime. Based on the final cultures will adjust antibiotics accordingly. Clinically the patient is feeling much better today, breathing a lot easier. She denies any discomfort, she had a follow-up chest x-ray which showed improvement. Patient is doing well with incentive spirometry, she is now on room air and O2 saturation is 94%. WBC count today is 9.9 hemoglobin 13.6 electrolytes are normal renal profile is normal bicarb is a bit low at 17. The Gram stain of the pleural fluid is negative so far, however there is many polymorphonuclear leukocytes, no organisms seen yet. Cultures are pending. The patient is seen today 01/23/2022 in follow-up on the regular medical floor. She is currently sitting up in bed. Awake and alert in no acute distress. She is still having some left-sided chest discomfort. Left chest catheter remains in place. She did receive alteplase/dornase yesterday with 400 ML's of cloudy bloody fluid returned. Today's chest x-ray shows continued effusion. Initial pleural fluid cultures are positive for presumptive MRSA. White count 9.8. Hemoglobin 13.1. Platelets 144. Sodium 1:30. Potassium 3.6. Bicarb 16. BUN 18. Creatinine 0.68. AST 296. ALT 285. Vancomycin trough 24.7. She is continued on vancomycin and cefepime. Left upper extremity PICC line remains in place. Remains on IV diuretics. She is currently afebrile. Maintaining O2 saturation in the mid 90s on room air. The patient is seen today 01/24/2022 in follow-up on the regular medical floor. She is awake and alert in no acute distress. Maintaining good O2 saturations 90s on room air. Chest x-ray continues to show persistent left basilar acute infiltrate/atelectasis and likely left-sided pleural fluid collection with left basilar pigtail catheter drainage in place. Persistent patchy right basilar infiltrate/atelectasis and cardiomegaly. No significant change. Her left-sided chest discomfort pain is well controlled. Left-sided chest tube remains in place. She did have alteplase/dornase infusion again yesterday with 900 mL out. Plan is for repeat infusions today and tomorrow and a follow-up CAT scan on Wednesday. CT services are on the case. Pleural fluid culture was positive for MRSA. Sputum culture with Bridget. She is continued on vancomycin. Cefepime was discontinued. ID services are on the case. The patient is seen today 01/26/2022 in follow-up on the regular medical floor. She is currently up ambulating in her room. She is tearful today. She is complaining of lower extremity edema. She is complaining of leaking around her left-sided chest tube. Pleural fluid culture was positive for MRSA. Sputum culture revealed no growth. Urine culture revealed no growth. Blood cultures revealed no growth. Creatinine 0.62. GFR greater than 90. She is continued on vancomycin. Lasix 20 mg IV twice a day. No accurate I&O. CT services did give alteplase/dornase infusion again today. She did have 340 ML's at the past 24 hours. Follow-up computed tomography scan of the chest pending. The patient is seen today 01/27/2022 in follow-up in the regular medical floor. She is currently resting fairly comfortably in bed today. Awake and alert in no acute distress. Less anxious. Continues chest x-ray continues to show basilar effusions and associated atelectasis. Computed tomography scan revealed left- sided chest tube in place. Previously measured empyema has resolved almost completely. Residual inflammatory changes. Increasing pleural effusion which appears lobulated and loculated with increasing left lower lobe infiltrate/atelectasis. Pleural fluid was positive for MRSA. Creatinine 0.62. GFR greater than 90. She is continued on vancomycin. Remains on IV diuretics. Less peripheral edema today. No accurate I&O. Objective - Vital Signs Vital signs: Vital Signs Temp 97.4 F L 01/27/22 08:27 Pulse 91 01/27/22 08:27 Resp 18 01/27/22 08:27 BP 110/78 01/27/22 08:27 Pulse Ox 96 01/27/22 08:27 FiO2 Intake & Output 01/26/22 01/27/22 01/27/22 18:59 06:59 18:59 Output Total 30 0 Balance -30 0 Weight 76.1 kg Output: Chest Tube Drainage 30 0 Chest Tube Left Posterior 30 0 Chest Other: Voiding Method Bedside Commode # Voids 3 3 # Bowel Movements 1 2 - Exam GENERAL EXAM: Alert, pleasant 31-year-old female, on room air, up ambulating in her room, fairly comfortable in no apparent distress. HEAD: Normocephalic. EYES: Normal reaction of pupils, equal size. NOSE: Clear with pink turbinates. THROAT: No erythema or exudates. NECK: No masses, no JVD. CHEST: No chest wall deformity. Left-sided chest tube remains in place. To Pleur-evac to wall suction. LUNGS: Equal air entry with crackles in the left lung base, diminished. CVS: S1 and S2 normal with no audible murmur, regular rhythm. ABDOMEN: No hepatosplenomegaly, normal bowel sounds, no guarding or rigidity. SPINE: No scoliosis or deformity SKIN: No rashes CENTRAL NERVOUS SYSTEM: No focal deficits, tone is normal in all 4 extremities. EXTREMITIES: There is no peripheral edema. No clubbing, no cyanosis. Peripheral pulses are intact. - Labs CBC & Chem 7: 01/25/22 07:04 01/27/22 07:35 Labs: Abnormal Lab Results - Last 24 Hours (Table) 01/27/22 Range/Units 06:49 POC Glucose (mg/dL) 134 H (70-110) mg/dL Microbiology - Last 24 Hours (Table) 01/21/22 20:21 Fungal Culture - Preliminary Aspirate Bridget albicans Assessment and Plan Assessment: Chest pain with shortness of breath secondary to a large fluid collection displacing the heart and appears contiguous with superior pericardial recess. Status post left chest catheter placement on 01/22/2022. Receiving alteplase/dornase infusions per CT services. Chest tube remains attached to Pleur-evac to wall suction. Follow-up computed tomography scan of the chest shows improvement. Cultures positive for MRSA. Continued vancomycin. History of heroin use, last used 11/03/2021 Recently incarcerated secondary to above History of COVID-19 infection in November 2021 History of bacterial endocarditis with tricuspid valve repair in January 2020 at [facility], maintained on baby aspirin History of hepatitis C Mild transaminitis, ultrasound revealed evidence of cholecystitis without gallbladder wall thickening, liver within normal limits History of chronic tobacco dependence History of MRSA in the right hip History of hypertension History of acid reflux disease Plan: The patient was seen and evaluated Chest x-ray, labs and medications reviewed Follow up computed tomography scan of the chest reviewed Remains stable and on room air Continued on vancomycin per ID services Left-sided chest tube remains in place Continue IV diuretics for peripheral edema Increase her activity as tolerated Increase her use of the incentive spirometer We will continue to follow I have personally seen and examined the patient, performed the documentation and the assessment and plan as written. Number of minutes spent on the visit: 10.
[2022-01-27] MEDS ORDERED: VANCOMYCIN TROUGH DUE 1 EACH MISC MISCELLANE ONE (19:00)
[2022-01-27] MEDS: FERROUS SULFATE 325 MG TAB PO SCH (21:29)
[2022-01-27] MEDS: SPIRONOLACTONE 25 MG TAB PO SCH (23:54)
--- NOTE | 2022-01-28 00:15 | P.PN ---
Subjective Progress Note Date: 01/26/22 Principal diagnosis: Left-sided empyema Patient is a 31-year-old female with a past medical history significant for IV drug use history of mitral valve endocarditis presented to hospital with left-sided chest pain or difficulty in breathing and this patient has been diagnosed with a left-sided empyema. patient is status post placement of left sided pigtail catheter by interventional radiology with removal of 660 mL purulent drainage on 01/21/2022 On today's evaluation that is 01/26/2022, the patient remains to be afebrile, the patient pain to the left side of the chest area is controlled , the patient is breathing comfortably on room area, the patient denies any cough or sputum production no abdominal pain no diarrhea, patient has been mostly complaining of swelling to bilateral lower extremity Objective - Vital Signs Vital signs: Vital Signs Temp 97.4 F L 01/26/22 07:30 Pulse 84 01/26/22 08:20 Resp 18 01/26/22 08:20 BP 115/82 01/26/22 07:30 Pulse Ox 99 01/26/22 07:30 FiO2 Intake & Output 01/25/22 01/26/22 01/26/22 18:59 06:59 18:59 Output Total 290 50 10 Balance -290 -50 -10 Output: Chest Tube Drainage 290 50 10 Chest Tube Left Posterior 290 50 10 Chest Other: # Voids 1 2 # Bowel Movements 1 1 - Exam GENERAL DESCRIPTION: Middle-age female lying in bed in no distress RESPIRATORY SYSTEM: Unlabored breathing , decreased breath sounds at bases HEART: S1 S2 regular rate and rhythm , ABDOMEN: Soft , no tenderness EXTREMITIES: No edema feet - Labs CBC & Chem 7: 01/25/22 07:04 01/27/22 07:35 Labs: Abnormal Lab Results - Last 24 Hours (Table) 01/25/22 Range/Units 07:04 MCH 25.7 L (27.0-32.0) pg MCHC 31.6 L (32.0-37.0) g/dL RDW 20.0 H (11.5-14.5) % Immature Gran # 0.09 H (0.00-0.04) X 10*3/uL Microbiology - Last 24 Hours (Table) 01/21/22 20:21 Fungal Culture - Preliminary Aspirate Bridget albicans 01/21/22 15:30 Anaerobic Culture - Final Pleural Fluid 01/19/22 19:16 Blood Culture - Final Blood No Growth after 144 hours 01/19/22 19:23 Blood Culture - Final Blood No Growth after 144 hours Assessment and Plan (1) Empyema Current Visit: Yes Status: Acute Code(s): J86.9 - PYOTHORAX WITHOUT FISTULA SNOMED Code(s): 483405342 Plan: 1patient presented to hospital with left chest pain cough in this patient with evidence of abnormal CT concerning for possible empyema patient to have a history of IV drug use and will need to cover for both resistant gram-positive as well as gram-negative pathogen 2Patient is status post placement of left sided pigtail catheter by interventional radiology with removal of 660 mL purulent drainage, cultures are currently growing presumptive MRSA, blood culture has been negative 3-patient seemed to have shown clinical improvement and will continue with vancomycin 2-4 weeks depending upon clinical response Time with Patient: Less than 30
--- NOTE | 2022-01-28 00:16 | P.PN ---
Subjective Progress Note Date: 01/27/22 Principal diagnosis: Left-sided empyema Patient is a 31-year-old female with a past medical history significant for IV drug use history of mitral valve endocarditis presented to hospital with left-sided chest pain or difficulty in breathing and this patient has been diagnosed with a left-sided empyema. patient is status post placement of left sided pigtail catheter by interventional radiology with removal of 660 mL purulent drainage on 01/21/2022 On today's evaluation that is 01/27/2022, the patient continues to be afebrile, the patient pain to the left side of the chest area is controlled , the patient is breathing comfortably on room area, the patient denies any cough or sputum production, the patient denies having any nausea no vomiting no abdominal pain no diarrhea Objective - Vital Signs Vital signs: Vital Signs Temp 97.4 F L 01/27/22 08:27 Pulse 91 01/27/22 08:27 Resp 18 01/27/22 08:27 BP 110/78 01/27/22 08:27 Pulse Ox 96 01/27/22 08:27 FiO2 Intake & Output 01/26/22 01/27/22 01/27/22 18:59 06:59 18:59 Output Total 30 0 Balance -30 0 Weight 76.1 kg Output: Chest Tube Drainage 30 0 Chest Tube Left Posterior 30 0 Chest Other: Voiding Method Bedside Commode # Voids 3 3 # Bowel Movements 1 2 - Exam GENERAL DESCRIPTION: Middle-age female lying in bed in no distress RESPIRATORY SYSTEM: Unlabored breathing , decreased breath sounds at bases HEART: S1 S2 regular rate and rhythm , ABDOMEN: Soft , no tenderness EXTREMITIES: No edema feet - Labs CBC & Chem 7: 01/25/22 07:04 01/27/22 07:35 Labs: Abnormal Lab Results - Last 24 Hours (Table) 01/27/22 Range/Units 06:49 POC Glucose (mg/dL) 134 H (70-110) mg/dL Microbiology - Last 24 Hours (Table) 01/21/22 20:21 Fungal Culture - Preliminary Aspirate Bridget albicans Assessment and Plan (1) Empyema Current Visit: Yes Status: Acute Code(s): J86.9 - PYOTHORAX WITHOUT FISTULA SNOMED Code(s): 609344211 Plan: 1patient presented to hospital with left chest pain cough in this patient with evidence of abnormal CT concerning for possible empyema patient to have a history of IV drug use and will need to cover for both resistant gram-positive as well as gram-negative pathogen 2Patient is status post placement of left sided pigtail catheter by interventional radiology with removal of 660 mL purulent drainage, cultures are currently growing presumptive MRSA, blood culture has been negative 3-patient seemed to have shown clinical improvement and repeat CAT scan and it shows almost complete resolution of the empyema she will continue with the vancomycin 2 weeks on discharge Time with Patient: Less than 30
[2022-01-28 06:12] LABS: ALT 78 U/L (4-34); AST 61 U/L (14-36); African American GFR (CKD) >90 (>60 ml/min/1.73 sqM); Albumin 2.5 g/dL (3.5-5.0); Albumin/Globulin Ratio 0.9; Alkaline Phosphatase 73 U/L (38-126); Anion Gap 8 mmol/L; Blood Urea Nitrogen 19 mg/dL (7-17); Carbon Dioxide 23 mmol/L (22-30); Chloride 104 mmol/L (98-107); Globulin 2.7 g/dL; Glucose 77 mg/dL (74-99); Non-African American GFR(CKD) >90 (>60 ml/min/1.73 sqM); Potassium 4.3 mmol/L (3.5-5.1); Sodium 135 mmol/L (137-145); Total Bilirubin 1.4 mg/dL (0.2-1.3); Total Protein 5.2 g/dL (6.3-8.2)
--- NOTE | 2022-01-28 08:00 | XR ---
EXAMINATION TYPE: XR chest 2V DATE OF EXAM: 01/28/2022 COMPARISON: Chest x-ray 01/27/2022 HISTORY: Empyema, chest tube removal TECHNIQUE: Frontal and lateral views of the chest are obtained. FINDINGS: There is been interval removal of the pigtail catheter on the left. Left-sided PICC line i s again noted. Some mild blunting the costophrenic angles is again seen. No evident pneumothorax. Hea rt size appears prominently as on prior. Epicardial pacing leads and post tricuspid valve replacement change again noted. IMPRESSION: No evident complication post chest tube removal.
[2022-01-28] MEDS: MULTIVITAMINS, THERA 1 EACH TAB PO SCH (08:20)
[2022-01-28] MEDS: FUROSEMIDE 10 MG/ML 4 ML VIAL IV SCH (08:20)
[2022-01-28] MEDS: BENZONATATE 100 MG CAP PO SCH ×3 (08:20→21:11)
[2022-01-28] MEDS: VANCOMYCIN 1,250 MG in SODIUM CHLORIDE 0.9% 250 ML IVPB SCH (08:20)
[2022-01-28] MEDS: PANTOPRAZOLE 40 MG TABLET PO SCH (08:20)
[2022-01-28] MEDS: ASPIRIN 81 MG PO SCH (08:20)
[2022-01-28] MEDS: HYDROcodone/APAP 5-325MG 1 EACH TAB PO PRN ×2 (08:20→16:47)
[2022-01-28] MEDS: SPIRONOLACTONE 25 MG TAB PO SCH ×2 (08:20→21:11)
[2022-01-28 09:00] LABS: Basophils # (A) 0.03 X 10*3/uL (0.00-0.10); Basophils % (A) 0.5 %; Eosinophils # (A) 0.08 X 10*3/uL (0.04-0.35); Eosinophils % (A) 1.2 %; HCT 35.8 % (37.2-46.3); HGB 11.1 g/dL (12.0-15.0); Immature Grans, Automated 0.3 %; Lymphocytes # (A) 1.85 X 10*3/uL (0.90-5.00); Lymphocytes % (A) 27.9 %; MCH 25.1 pg (27.0-32.0); MCV 80.8 fL (80.0-97.0); Mean Platelet Volume 10.7 fL (9.5-12.2); Monocytes # (A) 0.79 X 10*3/uL (0.20-1.00); Monocytes % (A) 11.9 %; NRBC Per 100 WBC 0 /100 WBCS (0.0-0.0); Neutrophils # (A) 3.87 X 10*3/uL (1.80-7.70); Neutrophils % (A) 58.2 %; Platelet Count 144 X 10*3/uL (140-440); RBC 4.43 X 10*6/uL (4.10-5.20); RDW 19.2 % (11.5-14.5); WBC 6.64 X 10*3/uL (4.50-10.00)
[2022-01-28] MEDS: ALBUTEROL NEBULIZED 2.5 MG/3 ML INHALATION SCH ×2 (09:18→19:11)
--- NOTE | 2022-01-28 10:20 | US ---
EXAMINATION TYPE: US liver DATE OF EXAM: 01/28/2022 COMPARISON: 01/20/2022 CLINICAL HISTORY: cirrhosis. Empyema TECHNIQUE: Multiple sonographic images of the right upper quadrant are obtained. FINDINGS: EXAM MEASUREMENTS: Liver Length: 15.3 cm Gallbladder Wall: 0.23 cm CBD: 0.78 cm. Normal is up to 0.5 cm in this age. Right Kidney: 11.4 x 4.1 x 4.8 cm INTERLOCKING AND SIGNAL MECHANIC NOTES:Exam limited by overlying bowel gas Pancreas: Mostly obscured by overlying bowel gas Liver: Starry renee appearance. No biliary dilatation Gallbladder: Two non-mobile echogenic foci consuming most of the gallbladder, 0.93 and 1.2 cm size. No Pericholecystic fluid visualized. No thickened wall visualized Evidence for sonographic Forbes's sign: No CBD: Dilated without internal obstruction visualized Right Kidney: wnl IMPRESSION: 1. Cholelithiasis. 2. Heterogenous appearance through the liver can be compatible with cirrhosis in the proper clinical setting. 3. Common bile duct is dilated at 0.8 cm.
--- NOTE | 2022-01-28 13:03 | CDI ---
Documentation Clarification Form Date: 01/21/2022 11:12:00 AM From: Astrid Chirinos RN, CCDS Email: [email or web address] Admit Date: 01/19/2022 07:01:00 PM Patient Name: Bernice Mueller Visit Number: [id number] Discharge Date: ATTENTION: The Clinical Documentation Specialists (CDI) and [facility] Coding Staff appreciate your assistance in clarifying documentation. Please respond to the clarification below the line at the bottom and electronically sign. The CDI & [facility] Coding staff will review the response and follow-up if needed. Please note: Queries are made part of the Legal Health Record. If you have any questions, please contact the author of this message via ITS. Dr. Saroj Pineda Sepsis is documented in the ED note and the 01/23 GI consultants note but is not noted in subsequent documentation. Clarification is requested. History/Risk Factors: 31-year-old female with hx of heroin abuse, endocarditis with mitral valve surgery, Hepatitis C and Covid infection in November. Clinical Indicators: increased SOB and right sided chest pain. Skin looks yellow 01/19 ED: "Empyema, Sepsis." 01/19 H&P: "EKG shows sinus tachycardia. Chest x-ray, cardiomegaly, elevated D- dimer. CT of the chest shows large probably empyema in the left lung. Pulmonary and Infectious Disease consult. Lactic acidosis elevated at 5.9. Fluids. Broad- spectrum antibiotics with Vancomycin and Zosyn." 01/19 Labs: WBC 11.4, D dimer 8.16, lactic acid 5.9, AST 360, ALT 183 01/21 Labs: CRP 2.8, Procalcitonin 0.36 01/20 Vital signs: Temp 95.9, HR 111, RR 46, BP 90/46 pox 96% 01/19 CTA: Left anterior medial fluid collection favored to be within the pleural space with enhancing pleura concerning for empyema. Rightward shift of the mediastinum/heart from a forementioned left-sided pleural fluid collection favored to represent empyema. 01/21 CXR: Cardiomegaly correlate for mild venous congestion. Increasing left basilar consolidation and small bilateral effusions. 01/21 CTS: "Leukocytosis, lactic acidosis present on admission. Recommend pigtail catheter placement. Antibiotic management per ID." 01/20 ID: "Possible empyema. Continue Vancomycin, discontinue Zosyn, add Cefepime." 01/23 GI: LFTs are consistent with underlyingcirrhosis of the liverhowever have markedly gone up throughout her stay. Likelyrelated to sepsisandpossiblesuperimposed medication induced hepatitis. Treatment: IV Cefepime 2gm Q8H, IV Vancomycin 1250mg Q8H then Q12H, 0.9 NS @100mL/hr Please clarify if Sepsis is: [ ] Sepsis confirmed, remains under treatment [ ] Sepsis confirmed, resolved [ ] Sepsis ruled out [ ] Other condition, please specify [ ] Unable to determine MTDD
--- NOTE | 2022-01-28 13:33 | P.PN ---
Subjective Progress Note Date: 01/28/22 Principal diagnosis: Left-sided chest fluid collection, empyema, shortness of breath, chest pain, nonproductive cough, leukocytosis, lactic acidosis, elevated liver enzymes present on admission. 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 The patient was seen and examined today 01/28/2022 bedside on the fourth floor medical surgical unit. Currently the patient is laying in bed, is awake, alert, oriented 3 and is in no acute apparent distress. She reports she feels much improved today. She still complaining of some swelling to her bilateral lower e xtremities and to her abdomen with +2 edema to her bilateral lower extremities. Her left anterior chest pigtail catheter was removed yesterday by interventional radiology without incident. She has been afebrile in the last 24 hours. She continues on vancomycin for antibiotic coverage for positive MRSA to her pleural fluid which is being managed by infectious disease. Left arm PICC line remains in place and functioning. Objective - Vital Signs Vital signs: Vital Signs Temp 99.4 F 01/28/22 13:09 Pulse 105 H 01/28/22 13:09 Resp 18 01/28/22 13:09 BP 113/74 01/28/22 13:09 Pulse Ox 95 01/28/22 13:09 FiO2 Intake & Output 01/27/22 01/28/22 01/28/22 18:59 06:59 18:59 Intake Total 118 Balance 118 Intake: Oral 118 Other: Voiding Method Bedside Commode Toilet Toilet # Voids 5 4 # Bowel Movements 3 - Exam CONSTITUTIONAL: Appears comfortable, cooperative, no acute distress RESPIRATORY: Lungs sounds diminished bilaterally, left greater than right. Respirations are symmetrical, nonlabored. Currently on room air with oxygen saturation 95% and is achieving 1500 mL on her incentive spirometry. Strong non productive cough. CARDIOVASCULAR: S1, S2 present. Regular rate and rhythm. Palpable peripheral pulses bilaterally. No edema present. GASTROINTESTINAL: Abdomen soft, nontender, nondistended. Active bowel sounds present 4 quadrants. Tolerating diet. GENITOURINARY: Continues to void. INTEGUMENTARY: Skin is warm and dry, no clubbing or cyanosis is present. NEUROLOGIC: Cranial nerves II through XII intact MUSKULOSKELETAL: Able to move all extremities, strength equal bilaterally PSYCHIATRIC: Alert and oriented to person place and time, appropriate affect, intact judgment and insight INVASIVE LINES AND TUBES: Left arm PICC line remains in place. - Allied health notes Allied health notes reviewed: nursing - Labs CBC & Chem 7: 01/28/22 05:30 01/28/22 05:30 Labs: Abnormal Lab Results - Last 24 Hours (Table) 01/28/22 01/28/22 Range/Units 05:30 05:30 Hgb 11.1 L (12.0-15.0) g/dL Hct 35.8 L (37.2-46.3) % MCH 25.1 L (27.0-32.0) pg MCHC 31.0 L (32.0-37.0) g/dL RDW 19.2 H (11.5-14.5) % Sodium 135 L (137-145) mmol/L BUN 19 H (7-17) mg/dL Calcium 8.0 L (8.4-10.2) mg/dL Total Bilirubin 1.4 H (0.2-1.3) mg/dL AST 61 H (14-36) U/L ALT 78 H (4-34) U/L Total Protein 5.2 L (6.3-8.2) g/dL Albumin 2.5 L (3.5-5.0) g/dL - Imaging and Cardiology Chest x-ray: report reviewed, image reviewed Assessment and Plan Assessment: 1. Left-sided chest fluid collection, empyema, status post left-sided pigtail catheter placement by interventional radiology, culture from the pleural fluid shows MRSA 2. Shortness of breath, chest pain, nonproductive cough, secondary to above 3. Leukocytosis, lactic acidosis present on admission 4. Elevated liver enzymes present on admission 5. 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 IV heroin abuse which she stopped only prior to [facility]pc term 7. History of hepatitis C 8. Chronic ongoing tobacco dependence 9. History of right hip surgery secondary to MRSA infection 10. Covid infection in November 2021 11. Medical noncompliance with history of multiple times leaving AMA Plan: 1. Left chest pigtail catheter was removed without incident yesterday by interventional radiology. Per the cardiothoracic surgery standpoint she can be discharged home when okay with primary care and other consultants. 2. Encourage Incentive spirometry use 10 times every hour while awake. 3. Antibiotic management per infectious disease. Pleural fluid was sent for culture, positive for MRSA. 4. Increase activity as tolerated. Out of bed for all meals. 5. Discussed the importance of risk modification, counseling regarding smoking cessation and IV heroin cessation was provided to the patient. 6. Continue supportive therapy. 7. Medical management of other comorbidities per primary care, pulmonology and infectious disease. 8. We will continue to monitor the patient on an as-needed basis. Please feel free to reconsult for any further questions. Time with Patient: Less than 30
--- NOTE | 2022-01-28 14:02 | P.PN ---
Subjective Progress Note Date: 01/28/22 This is a pleasant 31-year-old female patient with a known history of hepatitis C, IV drug abuse with heroin last used 11/03/2021, endocarditis, mitral valve replacement in 2019 at [facility], MRSA and a right hip. Chest has chronic and ongoing tobacco dependence. She also states she had a CoVID infection in November and has been short of breath since that time. She is currently incarcerated. She was brought over from the custodial with complaints of right-sided chest pain, shortness of breath, cough and congestion. Chest x-ray revealed cardiomediastinal silhouette moderately enlarged. Postsurgical changes with valvular prosthesis. No evidence of pleural effusion. No focal consolidation. No pneumothorax. CT angiogram ruled out pulmonary embolism however there is noted large fluid collection within the anterior medial left pleural space with associated atelectasis. There is suggestion of enhancing pleura. No focal consolidation or pneumothorax. However, the CAT scan was further reviewed and is now being reported as a large fluid collection most likely in the pericardium. Echocardiogram is pending. EKG reveals normal sinus rhythm with nonspecific ST and T wave abnormalities. Ultrasound of the liver revealed cholelithiasis with no definitive evidence for gallbladder wall t hickening or. Cholestatic fluid. Liver was within normal limits. White count 9.1. Hemoglobin 12.6. Platelets 334. INR 1.7. D-dimer 8.16. Sodium 131. Potassium 5.1. Bicarb 16. BUN 19. Creatinine 0.63. Lactic acid 5.8, 4.9. AST 360. ALT 183. Troponin negative 1. The patient is seen in consultation in the emergency department. She is awake and alert in no acute distress. She is maintaining good O2 saturations in the mid 90s on room air. She's been afebrile. Slightly tachycardic. Hemodynamically stable. She is still having issues with some right-sided chest discomfort. Some shortness of breath. Nonproductive cough. She was initiated on vancomycin and Zosyn, 0.9 normal saline at 100. Patient was reevaluated today on 01/21/22, remains in the ICU awaiting to be transferred possibly to [facility]. I had a long discussion with the radiologist yesterday on multiple occasions and the radiologist is extremely reluctant to consider CT-guided or ultrasound-guided drainage of the fluid collection noted on her initial CT of the chest and chest x-ray. He feels that this is a fluid collection that is in close proximity to the heart, and still believe this may be pericardial fluid or cysts. Possibility of empyema is not entirely ruled out, but according to him this is not a fluid that seems to be consistent with empyema. At any rate him and the cardiothoracic surgery on the case, are extremely reluctant to do any surgical intervention. Hence the recommendation is to transfer the patient to a tertiary care center. Apparently the patient had previous history of MRSA endocarditis with tricuspid valve repair in February of 2020 at [facility], she had history of IV heroin abuse, history of hepatitis C, history of right hip debridement secondary to MRSA infection, history of Covid 19 infection in November of 2021 and history of medical noncompliance, she had multiple episodes of leaving [facility] in the past. I discussed her condition today with the admitting physician Dr. Pineda, and apparently he is in the process according to him of making the transfer take place to [facility]. Patient was reevaluated today on 01/22/22, after evaluating the patient yesterday, we discussed with Dr. Rick/interventional radiologist the patient's condition, and he agreed to proceed with CT-guided needle aspiration of the fluid collection in the left pleural space, and if seems to be infected he would proceed with a pigtail catheter placement. Indeed this was done yesterday, and he was able to drain over 700 mL of pus out of the pleural space, he went ahead and placed a pigtail catheter, and connected to Pleur-evac. The fluid is now slightly serosanguineous, was initially purulent. Cultures on the fluid are pending patient in the meantime is receiving vancomycin and cefepime. Based on the final cultures will adjust antibiotics accordingly. Clinically the patient is feeling much better today, breathing a lot easier. She denies any discomfort, she had a follow-up chest x-ray which showed improvement. Patient is doing well with incentive spirometry, she is now on room air and O2 saturation is 94%. WBC count today is 9.9 hemoglobin 13.6 electrolytes are normal renal profile is normal bicarb is a bit low at 17. The Gram stain of the pleural fluid is negative so far, however there is many polymorphonuclear leukocytes, no organisms seen yet. Cultures are pending. The patient is seen today 01/23/2022 in follow-up on the regular medical floor. She is currently sitting up in bed. Awake and alert in no acute distress. She is still having some left-sided chest discomfort. Left chest catheter remains in place. She did receive alteplase/dornase yesterday with 400 ML's of cloudy bloody fluid returned. Today's chest x-ray shows continued effusion. Initial pleural fluid cultures are positive for presumptive MRSA. White count 9.8. Hemoglobin 13.1. Platelets 144. Sodium 1:30. Potassium 3.6. Bicarb 16. BUN 18. Creatinine 0.68. AST 296. ALT 285. Vancomycin trough 24.7. She is continued on vancomycin and cefepime. Left upper extremity PICC line remains in place. Remains on IV diuretics. She is currently afebrile. Maintaining O2 saturation in the mid 90s on room air. The patient is seen today 01/24/2022 in follow-up on the regular medical floor. She is awake and alert in no acute distress. Maintaining good O2 saturations 90s on room air. Chest x-ray continues to show persistent left basilar acute infiltrate/atelectasis and likely left-sided pleural fluid collection with left basilar pigtail catheter drainage in place. Persistent patchy right basilar infiltrate/atelectasis and cardiomegaly. No significant change. Her left-sided chest discomfort pain is well controlled. Left-sided chest tube remains in place. She did have alteplase/dornase infusion again yesterday with 900 mL out. Plan is for repeat infusions today and tomorrow and a follow-up CAT scan on Wednesday. CT services are on the case. Pleural fluid culture was positive for MRSA. Sputum culture with Bridget. She is continued on vancomycin. Cefepime was discontinued. ID services are on the case. The patient is seen today 01/26/2022 in follow-up on the regular medical floor. She is currently up ambulating in her room. She is tearful today. She is complaining of lower extremity edema. She is complaining of leaking around her left-sided chest tube. Pleural fluid culture was positive for MRSA. Sputum culture revealed no growth. Urine culture revealed no growth. Blood cultures revealed no growth. Creatinine 0.62. GFR greater than 90. She is continued on vancomycin. Lasix 20 mg IV twice a day. No accurate I&O. CT services did give alteplase/dornase infusion again today. She did have 340 ML's at the past 24 hours. Follow-up computed tomography scan of the chest pending. The patient is seen today 01/27/2022 in follow-up in the regular medical floor. She is currently resting fairly comfortably in bed today. Awake and alert in no acute distress. Less anxious. Continues chest x-ray continues to show basilar effusions and associated atelectasis. Computed tomography scan revealed left- sided chest tube in place. Previously measured empyema has resolved almost completely. Residual inflammatory changes. Increasing pleural effusion which appears lobulated and loculated with increasing left lower lobe infiltrate/atelectasis. Pleural fluid was positive for MRSA. Creatinine 0.62. GFR greater than 90. She is continued on vancomycin. Remains on IV diuretics. Less peripheral edema today. No accurate I&O. The patient is seen today 01/28/2022 in follow-up on the regular medical floor. She is awake and alert in no acute distress. Up ambulating in her room. Better spirits. Maintaining good O2 saturations in the mid 90s on room air. Currently afebrile. The left-sided pigtail catheter has been removed. Chest x-ray shows no evidence of pneumothorax. Ultrasound of the liver reveals cirrhosis. Pleural fluid cultures were positive for MRSA. She remains on vancomycin. Plan is for 4 weeks of therapy. White count 6.6. Hemoglobin 11.1. Sodium 135. Potassium 4.3. BUN 19. Creatinine 0.73. She is continued on 40 mg of IV Lasix twice a day. No accurate I&O. She does have less edema. Objective - Vital Signs Vital signs: Vital Signs Temp 99.4 F 01/28/22 13:09 Pulse 105 H 01/28/22 13:09 Resp 18 01/28/22 13:09 BP 113/74 01/28/22 13:09 Pulse Ox 95 01/28/22 13:09 FiO2 Intake & Output 01/27/22 01/28/22 01/28/22 18:59 06:59 18:59 Intake Total 118 Balance 118 Intake: Oral 118 Other: Voiding Method Bedside Commode Toilet Toilet # Voids 5 4 # Bowel Movements 3 - Exam GENERAL EXAM: Alert, 31-year-old female, on room air, fairly comfortable in no apparent distress. HEAD: Normocephalic. EYES: Normal reaction of pupils, equal size. NOSE: Clear with pink turbinates. THROAT: No erythema or exudates. NECK: No masses, no JVD. CHEST: No chest wall deformity. Left-sided chest tube remains in place. To Pleur-evac to wall suction. LUNGS: Equal air entry with crackles in the left lung base, diminished. CVS: S1 and S2 normal with no audible murmur, regular rhythm. ABDOMEN: No hepatosplenomegaly, normal bowel sounds, no guarding or rigidity. SPINE: No scoliosis or deformity SKIN: No rashes CENTRAL NERVOUS SYSTEM: No focal deficits, tone is normal in all 4 extremities. EXTREMITIES: There is no peripheral edema. No clubbing, no cyanosis. Peripheral pulses are intact. - Labs CBC & Chem 7: 01/28/22 05:30 01/28/22 05:30 Labs: Abnormal Lab Results - Last 24 Hours (Table) 01/28/22 01/28/22 Range/Units 05:30 05:30 Hgb 11.1 L (12.0-15.0) g/dL Hct 35.8 L (37.2-46.3) % MCH 25.1 L (27.0-32.0) pg MCHC 31.0 L (32.0-37.0) g/dL RDW 19.2 H (11.5-14.5) % Sodium 135 L (137-145) mmol/L BUN 19 H (7-17) mg/dL Calcium 8.0 L (8.4-10.2) mg/dL Total Bilirubin 1.4 H (0.2-1.3) mg/dL AST 61 H (14-36) U/L ALT 78 H (4-34) U/L Total Protein 5.2 L (6.3-8.2) g/dL Albumin 2.5 L (3.5-5.0) g/dL Assessment and Plan Assessment: Chest pain with shortness of breath secondary to a large fluid collection displacing the heart and appears contiguous with superior pericardial recess. Status post left chest catheter placement on 01/22/2022. Removed on 01/27/2022. Follow up computed tomography scan of the chest shows improvement. Cultures positive for MRSA. Continued on vancomycin. Plan is for 2 more weeks of treatment. History of heroin use, last used 11/03/2021 Recently incarcerated secondary to above History of COVID-19 infection in November 2021 History of bacterial endocarditis with tricuspid valve repair in January 2020 at [facility], maintained on baby aspirin History of hepatitis C Mild transaminitis, ultrasound revealed evidence of cholecystitis without gallbladder wall thickening, liver within normal limits History of chronic tobacco dependence History of MRSA in the right hip History of hypertension History of acid reflux disease Plan: The patient was seen and evaluated Chest x-ray, labs and medications reviewed Remains stable and on room air Continued on vancomycin per ID services Convert oral diuretics 20 mg daily Increase her activity as tolerated Increase her use of the incentive spirometer Discharge planning is in place We will continue to follow I have personally seen and examined the patient, performed the documentation and the assessment and plan as written. Number of minutes spent on the visit: 10.
[2022-01-28] MEDS: KETOROLAC 15 MG/ML 1 ML VIAL IVP PRN (16:47)
[2022-01-28] MEDS: FERROUS SULFATE 325 MG TAB PO SCH (21:11)
[2022-01-29] MEDS: KETOROLAC 15 MG/ML 1 ML VIAL IVP PRN (01:31)
[2022-01-29] MEDS: VANCOMYCIN 1,250 MG in SODIUM CHLORIDE 0.9% 250 ML IVPB SCH ×2 (01:31→17:51)
[2022-01-29] MEDS: HYDROcodone/APAP 5-325MG 1 EACH TAB PO PRN ×4 (01:32→20:50)
[2022-01-29] MEDS: PANTOPRAZOLE 40 MG TABLET PO SCH (07:56)
[2022-01-29] MEDS: ALBUTEROL NEBULIZED 2.5 MG/3 ML INHALATION SCH ×2 (08:12→22:00)
[2022-01-29] MEDS: BENZONATATE 100 MG CAP PO SCH ×3 (08:35→20:50)
[2022-01-29] MEDS: ASPIRIN 81 MG PO SCH (08:39)
[2022-01-29] MEDS: MULTIVITAMINS, THERA 1 EACH TAB PO SCH (08:39)
[2022-01-29] MEDS: SPIRONOLACTONE 25 MG TAB PO SCH ×2 (08:48→20:50)
[2022-01-29] MEDS ORDERED: FUROSEMIDE 20 MG TAB PO SCH (09:00)
--- NOTE | 2022-01-29 09:30 | PN ---
PROGRESS NOTE SUBJECTIVE: Complaining of severe lower extremity edema, wearing her Crispin wraps lower legs. She is on IV Lasix, but does not appear to be working very well. She has large amount of third-spacing of fluids. Possibly add Aldactone to her regimen at this time. Chest tube has been removed. OBJECTIVE: VITAL SIGNS: Temperature 97.4, pulse 90s, respiratory rate 16 to 18, blood pressure is 120s to 110s over 70s to 80s, 96% to 98% on room air. ASSESSMENT: We will add aldactone for possible cirrhosis. Prognosis guarded. Continue standard pulmonary treatments. Status post chest tube removal for empyema. Prognosis guarded. MMODL / IJN: [id number] /
[2022-01-29 09:50] LABS: African American GFR (CKD) >90 (>60 ml/min/1.73 sqM); Non-African American GFR(CKD) >90 (>60 ml/min/1.73 sqM)
[2022-01-29 13:38] LABS: HCV Qualitative Result DETECTED (Not detected)
--- NOTE | 2022-01-29 15:28 | P.PN ---
Subjective Progress Note Date: 01/29/22 Principal diagnosis: Shortness of breath. The patient is seen today 01/26/2022 in follow-up on the regular medical floor. She is currently up ambulating in her room. She is tearful today. She is complaining of lower extremity edema. She is complaining of leaking around her left-sided chest tube. Pleural fluid culture was positive for MRSA. Sputum culture revealed no growth. Urine culture revealed no growth. Blood cultures revealed no growth. Creatinine 0.62. GFR greater than 90. She is continued on vancomycin. Lasix 20 mg IV twice a day. No accurate I&O. CT services did give alteplase/dornase infusion again today. She did have 340 ML's at the past 24 hours. Follow-up computed tomography scan of the chest pending. The patient is seen today 01/27/2022 in follow-up in the regular medical floor. She is currently resting fairly comfortably in bed today. Awake and alert in no acute distress. Less anxious. Continues chest x-ray continues to show basilar effusions and associated atelectasis. Computed tomography scan revealed left- sided chest tube in place. Previously measured empyema has resolved almost completely. Residual inflammatory changes. Increasing pleural effusion which appears lobulated and loculated with increasing left lower lobe infiltrate/atelectasis. Pleural fluid was positive for MRSA. Creatinine 0.62. GFR greater than 90. She is continued on vancomycin. Remains on IV diuretics. Less peripheral edema today. No accurate I&O. The patient is seen today 01/28/2022 in follow-up on the regular medical floor. She is awake and alert in no acute distress. Up ambulating in her room. Better spirits. Maintaining good O2 saturations in the mid 90s on room air. Currently afebrile. The left-sided pigtail catheter has been removed. Chest x-ray shows no evidence of pneumothorax. Ultrasound of the liver reveals cirrhosis. Pleural fluid cultures were positive for MRSA. She remains on vancomycin. Plan is for 4 weeks of therapy. White count 6.6. Hemoglobin 11.1. Sodium 135. Potassium 4.3. BUN 19. Creatinine 0.73. She is continued on 40 mg of IV Lasix twice a day. No accurate I&O. She does have less edema. Progress note dated 01/29/2022. The patient appears to be doing relatively well. Her only complaint is lower extremity edema. She is on room air. She's not receiving any IV fluids. From the pulmonary standpoint, the patient could be considered for discharge. No new laboratory data today other than a creatinine of 0.65. Laboratory data from yesterday were reviewed. Objective - Vital Signs Vital signs: Vital Signs Temp 97.7 F 01/29/22 08:34 Pulse 97 01/29/22 09:23 Resp 18 01/29/22 09:23 BP 124/91 01/29/22 08:34 Pulse Ox 97 01/29/22 02:00 FiO2 Intake & Output 01/28/22 01/29/22 01/29/22 18:59 06:59 18:59 Intake Total 500 Output Total 3 Balance -3 500 Intake: Oral 500 Output: Urine 3 Other: Voiding Method Toilet Toilet Toilet # Voids 2 - Exam No acute distress, oriented 3. Currently on room air. No respiratory distress. HEENT examination is grossly unremarkable. Neck supple. Full range of motion. No adenopathy thyromegaly or neck vein distention. Cardiovascular examination reveals regular rhythm rate. S1-S2 normal. No S3 or S4. No discernible murmur noted. Heart rate 75 bpm. Lungs reveal mostly clear breath sounds. Minimal rhonchi. No wheezes. No cr ackles. Saturations are excellent on room air. Abdomen soft bowel sounds are heard. No masses or tenderness. Extremities are intact. No cyanosis or clubbing. Mild edema appreciated. Skin is without rash or lesion. Neurologic examination is brief but nonfocal. - Labs CBC & Chem 7: 01/28/22 05:30 01/29/22 08:55 Labs: Abnormal Lab Results - Last 24 Hours (Table) 01/21/22 Range/Units 02:50 HCV RNA Qual (PCR) DETECTED A (Not detected) Hepatitis C RNA Quant 2,538,598 H (<12) IU/mL HCV RNA PCR log copy room technician/ml 6.40 H (<1.08) Hepatitis C Genotype 3 A Assessment and Plan Assessment: Chest pain with shortness of breath secondary to a large fluid collection displacing the heart and appears contiguous with superior pericardial recess. Status post left chest catheter placement on 01/22/2022. Removed on 01/27/2022. Follow up computed tomography scan of the chest shows improvement. Cultures positive for MRSA. Continued on vancomycin. Plan is for 2 more weeks of treatment. History of heroin use, last used 11/03/2021. Recently incarcerated secondary to above. History of COVID-19 infection in November 2021. History of bacterial endocarditis with tricuspid valve repair in January 2020 at [facility], maintained on baby aspirin. History of hepatitis C. Mild transaminitis, ultrasound revealed evidence of cholecystitis without gallbladder wall thickening, liver within normal limits. History of chronic tobacco dependence. History of MRSA in the right hip. History of hypertension. History of acid reflux disease. Plan: Plan dated 01/29/2022. The patient appears to be doing relatively well. She is on room air. She continues on vancomycin as per infectious diseases. The patient's major complaint is lower extremity edema. She continues to use her incentive spirometer. Discharge planning underway. We will continue to follow the patient and make recommendations along the way. Labs, x-rays, and medications are all reviewed. Time with Patient: Less than 30
[2022-01-29] MEDS: FLUCONAZOLE 100 MG TAB PO SCH (17:51)
[2022-01-29] MEDS: FUROSEMIDE 20 MG TAB PO SCH (18:31)
[2022-01-29] MEDS: FERROUS SULFATE 325 MG TAB PO SCH (20:50)
--- NOTE | 2022-01-29 21:29 | PN ---
PROGRESS NOTE SUBJECTIVE: This is a 31-year-old white female, status post empyema drainage of the chest. Chest tubes removed. IV antibiotics, long-term, as could be done at a center in [place]. Possible discharge home in the morning. I started her on a secondary besides Lasix for generalized anasarca-type changes, started her on the Aldactone last night as the Lasix was not really working. OBJECTIVE: VITAL SIGNS: Temperature 99.4, pulse 105, respiratory rate 16 to 18, blood pressure 113/74, 95% on room air. CARDIOVASCULAR: S1 and S2. LUNGS: Clear. PSYCHIATRIC: Anxious and nervous. GI: Distended. HEMATOLOGIC: She has anasarca-type changes in the lower extremities and the abdomen. ASSESSMENT AND PLAN: We can start her on the Aldactone. CARLOS sahni. Discussed with the nurse to put her on aldactone to go with the Lasix. Prognosis is guarded. Set her up for rehab and outpatient antibiotics at a center down in [place]. MMODL / IJN: [id number] /
--- NOTE | 2022-01-29 22:45 | PN ---
PROGRESS NOTE Sepsis is confirmed. MMODL / IJN: [id number] /
--- NOTE | 2022-01-29 22:59 | P.PN ---
Subjective Progress Note Date: 01/28/22 Principal diagnosis: Left-sided empyema Patient is a 31-year-old female with a past medical history significant for IV drug use history of mitral valve endocarditis presented to hospital with left-sided chest pain or difficulty in breathing and this patient has been diagnosed with a left-sided empyema. patient is status post placement of left sided pigtail catheter by interventional radiology with removal of 660 mL purulent drainage on 01/21/2022 On today's evaluation that is 01/28/2022, the patient remains to be afebrile, the patient pain to the left side of the chest area is controlled with the current medication , the patient is breathing comfortably on room area, the patient denies any cough or sputum production, the patient denies having any nausea no vomiting no abdominal pain no diarrhea, has been combining of lower extremity swelling Objective - Vital Signs Vital signs: Vital Signs Temp 98.7 F 01/28/22 07:14 Pulse 105 H 01/28/22 07:14 Resp 18 01/28/22 07:14 BP 94/53 01/28/22 07:14 Pulse Ox 98 01/28/22 07:14 FiO2 Intake & Output 01/27/22 01/28/22 01/28/22 18:59 06:59 18:59 Intake Total 118 Balance 118 Intake: Oral 118 Other: Voiding Method Bedside Commode Toilet Toilet # Voids 5 4 # Bowel Movements 3 - Exam GENERAL DESCRIPTION: Middle-age female lying in bed in no distress RESPIRATORY SYSTEM: Unlabored breathing , decreased breath sounds at bases HEART: S1 S2 regular rate and rhythm , ABDOMEN: Soft , no tenderness EXTREMITIES: 2+ edema feet - Labs CBC & Chem 7: 01/28/22 05:30 01/29/22 08:55 Labs: Abnormal Lab Results - Last 24 Hours (Table) 01/28/22 01/28/22 Range/Units 05:30 05:30 Hgb 11.1 L (12.0-15.0) g/dL Hct 35.8 L (37.2-46.3) % MCH 25.1 L (27.0-32.0) pg MCHC 31.0 L (32.0-37.0) g/dL RDW 19.2 H (11.5-14.5) % Sodium 135 L (137-145) mmol/L BUN 19 H (7-17) mg/dL Calcium 8.0 L (8.4-10.2) mg/dL Total Bilirubin 1.4 H (0.2-1.3) mg/dL AST 61 H (14-36) U/L ALT 78 H (4-34) U/L Total Protein 5.2 L (6.3-8.2) g/dL Albumin 2.5 L (3.5-5.0) g/dL Assessment and Plan (1) Empyema Current Visit: Yes Status: Acute Code(s): J86.9 - PYOTHORAX WITHOUT FISTULA SNOMED Code(s): 132067866 Plan: 1patient presented to hospital with left chest pain cough in this patient with evidence of abnormal CT concerning for possible empyema patient to have a history of IV drug use and will need to cover for both resistant gram-positive as well as gram-negative pathogen 2Patient is status post placement of left sided pigtail catheter by interventional radiology with removal of 660 mL purulent drainage, cultures are currently growing presumptive MRSA, blood culture has been negative 3-patient seemed to have shown clinical improvement and repeat CAT scan did showed almost complete resolution of the empyema patient to continue with the vancomycin 2 weeks on discharge Time with Patient: Less than 30
--- NOTE | 2022-01-29 23:00 | P.PN ---
Subjective Progress Note Date: 01/29/22 Principal diagnosis: Left-sided empyema Patient is a 31-year-old female with a past medical history significant for IV drug use history of mitral valve endocarditis presented to hospital with left-sided chest pain or difficulty in breathing and this patient has been diagnosed with a left-sided empyema. patient is status post placement of left sided pigtail catheter by interventional radiology with removal of 660 mL purulent drainage on 01/21/2022 On today's evaluation that is 01/29/2022, the patient denies any fever and chills, the patient pain to the left side of the chest area is controlled with the current medication , the patient is breathing comfortably on room area, the patient denies any cough or sputum production, the patient denies having any nausea no vomiting , patient has been complaining of abdominal as well as lower extremity swelling and distention Objective - Vital Signs Vital signs: Vital Signs Temp 98.1 F 01/29/22 20:00 Pulse 107 H 01/29/22 20:00 Resp 16 01/29/22 20:00 BP 113/80 01/29/22 20:00 Pulse Ox 100 01/29/22 20:00 FiO2 Intake & Output 01/29/22 01/29/22 01/30/22 06:59 18:59 06:59 Intake Total 1100 Balance 1100 Intake: Oral 1100 Other: Voiding Method Toilet Toilet # Voids 2 - Exam GENERAL DESCRIPTION: Middle-age female lying in bed in no distress RESPIRATORY SYSTEM: Unlabored breathing , decreased breath sounds at bases HEART: S1 S2 regular rate and rhythm , ABDOMEN: Soft , no tenderness EXTREMITIES: 2+ edema feet - Labs CBC & Chem 7: 01/28/22 05:30 01/29/22 08:55 Labs: Abnormal Lab Results - Last 24 Hours (Table) 01/21/22 Range/Units 02:50 HCV RNA Qual (PCR) DETECTED A (Not detected) Hepatitis C RNA Quant 2,538,598 H (<12) IU/mL HCV RNA PCR log copy director/ml 6.40 H (<1.08) Hepatitis C Genotype 3 A Assessment and Plan (1) Empyema Current Visit: Yes Status: Acute Code(s): J86.9 - PYOTHORAX WITHOUT FISTULA SNOMED Code(s): 238998731 Plan: 1patient presented to hospital with left chest pain cough in this patient with evidence of abnormal CT concerning for possible empyema patient to have a history of IV drug use and will need to cover for both resistant gram-positive as well as gram-negative pathogen 2Patient is status post placement of left sided pigtail catheter by in terventional radiology with removal of 660 mL purulent drainage, cultures are currently growing presumptive MRSA, blood culture has been negative 3-patient seemed to have shown clinical improvement and repeat CAT scan did showed almost complete resolution of the empyema 4the patient lower her fluid aspirated is also growing Bridget albicans, we will add Diflucan and continue with the vancomycin 2 weeks on discharge
[2022-01-30] MEDS: HYDROcodone/APAP 5-325MG 1 EACH TAB PO PRN ×2 (06:34→21:06)
[2022-01-30] MEDS: guaiFENesin-DM 100-10MG/5ML 10 ML CUP PO PRN (06:51)
[2022-01-30] MEDS: ALBUTEROL NEBULIZED 2.5 MG/3 ML INHALATION SCH ×2 (08:17→20:48)
[2022-01-30 08:39] LABS: African American GFR (CKD) >90 (>60 ml/min/1.73 sqM); Non-African American GFR(CKD) >90 (>60 ml/min/1.73 sqM)
[2022-01-30] MEDS: VANCOMYCIN 1,250 MG in SODIUM CHLORIDE 0.9% 250 ML IVPB SCH (09:44)
[2022-01-30] MEDS: PANTOPRAZOLE 40 MG TABLET PO SCH (09:45)
[2022-01-30] MEDS: FUROSEMIDE 20 MG TAB PO SCH ×2 (09:45→15:43)
[2022-01-30] MEDS: ASPIRIN 81 MG PO SCH (09:45)
[2022-01-30] MEDS: FLUCONAZOLE 100 MG TAB PO SCH (09:45)
[2022-01-30] MEDS: SPIRONOLACTONE 25 MG TAB PO SCH ×3 (09:45→22:41)
[2022-01-30] MEDS: MULTIVITAMINS, THERA 1 EACH TAB PO SCH (09:46)
[2022-01-30] MEDS: BENZONATATE 100 MG CAP PO SCH ×3 (09:46→21:37)
--- NOTE | 2022-01-30 14:04 | DS ---
DISCHARGE SUMMARY DISCHARGE MEDICATIONS: Discharged home on, 1. Benadryl 25 q.8h p.r.n. 2. Tessalon Perles 200 t.i.d. 3. Aldactone 50 b.i.d. 4. Lasix 20 daily. 5. Protonix 40 mg daily. 6. Vancomycin 1250 IV piggyback every 16 hours for 2 weeks. 7. Ferrous sulfate 325 daily. 8. Ensure 1 can daily. 9. Aspirin 81 mg daily. 10.Multivitamin daily. 11.Nebulizer 2.5 b.i.d. 12.Spironolactone 50 b.i.d. 13.Omeprazole 40 mg daily. CONDITION: Stable. PROGNOSIS: Guarded. HOSPITAL COURSE: She came in to the hospital with empyema of the lung for which chest tube was placed, it was drained, multiple pus, fluid came out of her MRSA. She was started on vancomycin, she will need 2 more weeks of IV antibiotics. She was, however, treated with Lasix and Aldactone, third-spacing for fluid. She will need Crispin wraps, lower leg CARLOS hose, history hepatitis C, sepsis, empyema stabilized from medical standpoint. Blood pressure stabilized. Diuretics, we needed Lasix and spironolactone to help with some of third-spacing fluid in extremities. Chest tube was removed. She is stabilized, in stable condition she will need 2 more weeks of IV antibiotics on discharge. Diet as tolerated. Condition stable. Prognosis guarded. Possible drug rehab after treatment with Vancomycin is over. MMODL / IJN: [id number] /
--- NOTE | 2022-01-30 14:48 | P.PN ---
Subjective Progress Note Date: 01/30/22 This is a pleasant 31-year-old female patient with a known history of hepatitis C, IV drug abuse with heroin last used 11/03/2021, endocarditis, mitral valve replacement in 2019 at [facility], MRSA and a right hip. Chest has chronic and ongoing tobacco dependence. She also states she had a CoVID infection in November and has been short of breath since that time. She is currently incarcerated. She was brought over from the care home with complaints of right-sided chest pain, shortness of breath, cough and congestion. Chest x-ray revealed cardiomediastinal silhouette moderately enlarged. Postsurgical changes with valvular prosthesis. No evidence of pleural effusion. No focal consolidation. No pneumothorax. CT angiogram ruled out pulmonary embolism however there is noted large fluid collection within the anterior medial left pleural space with associated atelectasis. There is suggestion of enhancing pleura. No focal consolidation or pneumothorax. However, the CAT scan was further reviewed and is now being reported as a large fluid collection most likely in the pericardium. Echocardiogram is pending. EKG reveals normal sinus rhythm with nonspecific ST and T wave abnormalities. Ultrasound of the liver revealed cholelithiasis with no definitive evidence for gallbladder wall t hickening or. Cholestatic fluid. Liver was within normal limits. White count 9.1. Hemoglobin 12.6. Platelets 334. INR 1.7. D-dimer 8.16. Sodium 131. Potassium 5.1. Bicarb 16. BUN 19. Creatinine 0.63. Lactic acid 5.8, 4.9. AST 360. ALT 183. Troponin negative 1. The patient is seen in consultation in the emergency department. She is awake and alert in no acute distress. She is maintaining good O2 saturations in the mid 90s on room air. She's been afebrile. Slightly tachycardic. Hemodynamically stable. She is still having issues with some right-sided chest discomfort. Some shortness of breath. Nonproductive cough. She was initiated on vancomycin and Zosyn, 0.9 normal saline at 100. Patient was reevaluated today on 01/21/22, remains in the ICU awaiting to be transferred possibly to [facility]. I had a long discussion with the radiologist yesterday on multiple occasions and the radiologist is extremely reluctant to consider CT-guided or ultrasound-guided drainage of the fluid collection noted on her initial CT of the chest and chest x-ray. He feels that this is a fluid collection that is in close proximity to the heart, and still believe this may be pericardial fluid or cysts. Possibility of empyema is not entirely ruled out, but according to him this is not a fluid that seems to be consistent with empyema. At any rate him and the cardiothoracic surgery on the case, are extremely reluctant to do any surgical intervention. Hence the recommendation is to transfer the patient to a tertiary care center. 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 I discussed her condition today with the admitting physician Dr. Pineda, and apparently he is in the process according to him of making the transfer take place to [facility]. Patient was reevaluated today on 01/22/22, after evaluating the patient yesterday, we discussed with Dr. Rick/interventional radiologist the patient's condition, and he agreed to proceed with CT-guided needle aspiration of the fluid collection in the left pleural space, and if seems to be infected he would proceed with a pigtail catheter placement. Indeed this was done yesterday, and he was able to drain over 700 mL of pus out of the pleural space, he went ahead and placed a pigtail catheter, and connected to Pleur-evac. The fluid is now slightly serosanguineous, was initially purulent. Cultures on the fluid are pending patient in the meantime is receiving vancomycin and cefepime. Based on the final cultures will adjust antibiotics accordingly. Clinically the patient is feeling much better today, breathing a lot easier. She denies any discomfort, she had a follow-up chest x-ray which showed improvement. Patient is doing well with incentive spirometry, she is now on room air and O2 saturation is 94%. WBC count today is 9.9 hemoglobin 13.6 electrolytes are normal renal profile is normal bicarb is a bit low at 17. The Gram stain of the pleural fluid is negative so far, however there is many polymorphonuclear leukocytes, no organisms seen yet. Cultures are pending. The patient is seen today 01/23/2022 in follow-up on the regular medical floor. She is currently sitting up in bed. Awake and alert in no acute distress. She is still having some left-sided chest discomfort. Left chest catheter remains in place. She did receive alteplase/dornase yesterday with 400 ML's of cloudy bloody fluid returned. Today's chest x-ray shows continued effusion. Initial pleural fluid cultures are positive for presumptive MRSA. White count 9.8. Hemoglobin 13.1. Platelets 144. Sodium 1:30. Potassium 3.6. Bicarb 16. BUN 18. Creatinine 0.68. AST 296. ALT 285. Vancomycin trough 24.7. She is continued on vancomycin and cefepime. Left upper extremity PICC line remains in place. Remains on IV diuretics. She is currently afebrile. Maintaining O2 saturation in the mid 90s on room air. The patient is seen today 01/24/2022 in follow-up on the regular medical floor. She is awake and alert in no acute distress. Maintaining good O2 saturations 90s on room air. Chest x-ray continues to show persistent left basilar acute infiltrate/atelectasis and likely left-sided pleural fluid collection with left basilar pigtail catheter drainage in place. Persistent patchy right basilar infiltrate/atelectasis and cardiomegaly. No significant change. Her left-sided chest discomfort pain is well controlled. Left-sided chest tube remains in place. She did have alteplase/dornase infusion again yesterday with 900 mL out. Plan is for repeat infusions today and tomorrow and a follow-up CAT scan on Wednesday. CT services are on the case. Pleural fluid culture was positive for MRSA. Sputum culture with Bridget. She is continued on vancomycin. Cefepime was discontinued. ID services are on the case. The patient is seen today 01/26/2022 in follow-up on the regular medical floor. She is currently up ambulating in her room. She is tearful today. She is complaining of lower extremity edema. She is complaining of leaking around her left-sided chest tube. Pleural fluid culture was positive for MRSA. Sputum culture revealed no growth. Urine culture revealed no growth. Blood cultures revealed no growth. Creatinine 0.62. GFR greater than 90. She is continued on vancomycin. Lasix 20 mg IV twice a day. No accurate I&O. CT services did give alteplase/dornase infusion again today. She did have 340 ML's at the past 24 hours. Follow-up computed tomography scan of the chest pending. The patient is seen today 01/27/2022 in follow-up in the regular medical floor. She is currently resting fairly comfortably in bed today. Awake and alert in no acute distress. Less anxious. Continues chest x-ray continues to show basilar effusions and associated atelectasis. Computed tomography scan revealed left- sided chest tube in place. Previously measured empyema has resolved almost completely. Residual inflammatory changes. Increasing pleural effusion which appears lobulated and loculated with increasing left lower lobe infiltrate/atelectasis. Pleural fluid was positive for MRSA. Creatinine 0.62. GFR greater than 90. She is continued on vancomycin. Remains on IV diuretics. Less peripheral edema today. No accurate I&O. The patient is seen today 01/28/2022 in follow-up on the regular medical floor. She is awake and alert in no acute distress. Up ambulating in her room. Better spirits. Maintaining good O2 saturations in the mid 90s on room air. Currently afebrile. The left-sided pigtail catheter has been removed. Chest x-ray shows no evidence of pneumothorax. Ultrasound of the liver reveals cirrhosis. Pleural fluid cultures were positive for MRSA. She remains on vancomycin. Plan is for 4 weeks of therapy. White count 6.6. Hemoglobin 11.1. Sodium 135. Potassium 4.3. BUN 19. Creatinine 0.73. She is continued on 40 mg of IV Lasix twice a day. No accurate I&O. She does have less edema. The patient is seen today 01/30/2022 in follow-up on the regular medical floor. She is up ambulating in her room. Awake and alert in no acute distress. No shortness of breath, cough or congestion. No hemoptysis. Creatinine 0.73. GFR greater than 90. She is continued on vancomycin. Oral diuretics. Bronchodilators as needed. Objective - Vital Signs Vital signs: Vital Signs Temp 97.6 F 01/30/22 14:00 Pulse 99 01/30/22 14:00 Resp 20 01/30/22 14:00 BP 116/84 01/30/22 14:00 Pulse Ox 97 01/30/22 14:00 FiO2 Intake & Output 01/29/22 01/30/22 01/30/22 18:59 06:59 18:59 Intake Total 1100 Balance 1100 Intake: Oral 1100 Other: Voiding Method Toilet Toilet Toilet # Voids 4 - Exam GENERAL EXAM: Alert, 31-year-old female, on room air, comfortable in no apparent distress. HEAD: Normocephalic. EYES: Normal reaction of pupils, equal size. NOSE: Clear with pink turbinates. THROAT: No erythema or exudates. NECK: No masses, no JVD. CHEST: No chest wall deformity. Left-sided chest tube removed LUNGS: Equal air entry with crackles in the left lung base, diminished. CVS: S1 and S2 normal with no audible murmur, regular rhythm. ABDOMEN: No hepatosplenomegaly, normal bowel sounds, no guarding or rigidity. SPINE: No scoliosis or deformity SKIN: No rashes CENTRAL NERVOUS SYSTEM: No focal deficits, tone is normal in all 4 extremities. EXTREMITIES: There is no peripheral edema. No clubbing, no cyanosis. Peripheral pulses are intact. - Labs CBC & Chem 7: 01/28/22 05:30 01/30/22 07:47 Labs: Microbiology - Last 24 Hours (Table) 01/21/22 17:30 Fungal Culture - Preliminary Pleural Fluid Assessment and Plan Assessment: Chest pain with shortness of breath secondary to a large fluid collection displacing the heart and appears contiguous with superior pericardial recess. Status post left chest catheter placement on 01/22/2022. Removed on 01/27/2022. Follow up computed tomography scan of the chest shows improvement. Cultures positive for MRSA. Continued on vancomycin. Plan is for 2 more weeks of treatment. History of heroin use, last used 11/03/2021 Recently incarcerated secondary to above History of COVID-19 infection in November 2021 History of bacterial endocarditis with tricuspid valve repair in January 2020 at [facility], maintained on baby aspirin History of hepatitis C Mild transaminitis, ultrasound revealed evidence of cholecystitis without gallbladder wall thickening, liver within normal limits History of chronic tobacco dependence History of MRSA in the right hip History of hypertension History of acid reflux disease Plan: The patient was seen and evaluated Labs and medications reviewed Remains stable and on room air Continued on vancomycin per ID services We will see the patient as needed I have personally seen and examined the patient, performed the documentation and the assessment and plan as written. Number of minutes spent on the visit: 10.
[2022-01-30] MEDS: FERROUS SULFATE 325 MG TAB PO SCH (21:37)
[2022-01-30] MEDS ORDERED: VANCOMYCIN TROUGH DUE 1 EACH MISC MISCELLANE ONE (23:00)
[2022-01-31] MEDS: VANCOMYCIN 1,250 MG in SODIUM CHLORIDE 0.9% 250 ML IVPB SCH ×2 (00:31→16:00)
[2022-01-31 08:25] LABS: African American GFR (CKD) >90 (>60 ml/min/1.73 sqM); Non-African American GFR(CKD) >90 (>60 ml/min/1.73 sqM)
[2022-01-31] MEDS: FLUCONAZOLE 100 MG TAB PO SCH (08:35)
[2022-01-31] MEDS: MULTIVITAMINS, THERA 1 EACH TAB PO SCH (08:35)
[2022-01-31] MEDS: BENZONATATE 100 MG CAP PO SCH ×3 (08:35→22:01)
[2022-01-31] MEDS: ASPIRIN 81 MG PO SCH (08:35)
[2022-01-31] MEDS: FUROSEMIDE 20 MG TAB PO SCH ×2 (08:36→16:00)
[2022-01-31] MEDS: ALBUTEROL NEBULIZED 2.5 MG/3 ML INHALATION SCH ×2 (08:36→21:15)
[2022-01-31] MEDS: PANTOPRAZOLE 40 MG TABLET PO SCH (08:36)
[2022-01-31] MEDS: SPIRONOLACTONE 25 MG TAB PO SCH ×4 (08:36→22:01)
[2022-01-31] MEDS: HYDROcodone/APAP 5-325MG 1 EACH TAB PO PRN ×2 (09:04→16:11)
--- NOTE | 2022-01-31 09:57 | P.PN ---
Subjective Progress Note Date: 01/30/22 Principal diagnosis: Left-sided empyema Patient is a 31-year-old female with a past medical history significant for IV drug use history of mitral valve endocarditis presented to hospital with left-sided chest pain or difficulty in breathing and this patient has been diagnosed with a left-sided empyema. patient is status post placement of left sided pigtail catheter by interventional radiology with removal of 660 mL purulent drainage on 01/21/2022 On today's evaluation that is 01/30/2022, the patient remains to be afebrile, the patient is breathing comfortably on room area, the patient denies any cough or sputum production, the patient denies having any nausea no vomiting , patient has been complaining of abdominal as well as lower extremity swelling and distention Objective - Vital Signs Vital signs: Vital Signs Temp 98.3 F 01/30/22 08:00 Pulse 102 H 01/30/22 08:28 Resp 17 01/30/22 08:00 BP 126/89 01/30/22 08:00 Pulse Ox 96 01/30/22 08:00 FiO2 Intake & Output 01/29/22 01/30/22 01/30/22 18:59 06:59 18:59 Intake Total 1100 Balance 1100 Intake: Oral 1100 Other: Voiding Method Toilet Toilet Toilet # Voids 4 - Exam GENERAL DESCRIPTION: Middle-age female lying in bed in no distress RESPIRATORY SYSTEM: Unlabored breathing , decreased breath sounds at bases HEART: S1 S2 regular rate and rhythm , ABDOMEN: Soft , no tenderness EXTREMITIES: 2+ edema feet - Labs CBC & Chem 7: 01/28/22 05:30 01/31/22 07:39 Labs: Abnormal Lab Results - Last 24 Hours (Table) 01/21/22 Range/Units 02:50 HCV RNA Qual (PCR) DETECTED A (Not detected) Hepatitis C RNA Quant 2,538,598 H (<12) IU/mL HCV RNA PCR 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/ml 6.40 H (<1.08) Hepatitis C Genotype 3 A Microbiology - Last 24 Hours (Table) 01/21/22 17:30 Fungal Culture - Preliminary Pleural Fluid Assessment and Plan (1) Empyema Current Visit: Yes Status: Acute Code(s): J86.9 - PYOTHORAX WITHOUT FISTULA SNOMED Code(s): 804019191 Plan: 1patient presented to hospital with left chest pain cough in this patient with evidence of abnormal CT concerning for possible empyema patient to have a history of IV drug use and will need to cover for both resistant gram-positive as well as gram-negative pathogen 2Patient is status post placement of left sided pigtail catheter by interventional radiology with removal of 660 mL purulent drainage, cultures are currently growing presumptive MRSA, blood culture has been negative 3-patient seemed to have shown clinical improvement and repeat CAT scan did showed almost complete resolution of the empyema 4the patient lower her fluid aspirated is also growing Bridget albicans, 5- patient to continue with Diflucan and vancomycin 2 weeks on discharge Time with Patient: Less than 30
[2022-01-31 12:51] LABS: Albumin 2.6 g/dL (3.5-5.0)
--- NOTE | 2022-01-31 14:30 | PN ---
PROGRESS NOTE DATE OF SERVICE: 01/30/2022 SUBJECTIVE: This is a white female, 31, who was admitted for empyema status post chest tube removal, needs IV vancomycin 2 weeks wait for discharge planning. She has third- spacing of fluid due to worsening cirrhosis of her abdomen and third-spacing of fluid. I increased her Aldactone for the last 2 days, now is up to 100 mg t.i.d. as well as Lasix 40 b.i.d. Monitor potassium levels. OBJECTIVE: CARDIOVASCULAR: S1, S2. GI: Distended due to third-spacing of fluids. EXTREMITIES: Legs showed anasarca type changes with pitting edema. ASSESSMENT: Cirrhosis, hypoalbuminemia, status post empyema, status post drug abuse, history of endocarditis. Prognosis extremely guarded. Increase diuretics. Wait for GI recommendations, Crispin wraps versus CARLOS hose in the lower legs. Prognosis is extremely guarded. Two more weeks of IV antibiotics. MMODL / IJN: [id number] /
[2022-01-31] MEDS ORDERED: ONDANSETRON 4 MG/2 ML VIAL IVP PRN (19:19)
[2022-01-31] MEDS: FERROUS SULFATE 325 MG TAB PO SCH (22:01)
[2022-02-01 05:50] LABS: ALT 43 U/L (4-34); AST 46 U/L (14-36); African American GFR (CKD) >90 (>60 ml/min/1.73 sqM); Albumin 2.7 g/dL (3.5-5.0); Alkaline Phosphatase 82 U/L (38-126); Anion Gap 13 mmol/L; Blood Urea Nitrogen 11 mg/dL (7-17); Calcium 8.3 mg/dL (8.4-10.2); Carbon Dioxide 22 mmol/L (22-30); Chloride 103 mmol/L (98-107); Globulin 2.7 g/dL; Glucose 71 mg/dL (74-99); Non-African American GFR(CKD) >90 (>60 ml/min/1.73 sqM); Potassium 4.1 mmol/L (3.5-5.1); Sodium 138 mmol/L (137-145); Total Bilirubin 0.8 mg/dL (0.2-1.3); Total Protein 5.4 g/dL (6.3-8.2)
[2022-02-01] MEDS: ALBUTEROL NEBULIZED 2.5 MG/3 ML INHALATION SCH ×2 (07:18→19:01)
[2022-02-01] MEDS: VANCOMYCIN 1,250 MG in SODIUM CHLORIDE 0.9% 250 ML IVPB SCH (08:16)
[2022-02-01] MEDS: FLUCONAZOLE 100 MG TAB PO SCH (08:17)
[2022-02-01] MEDS: PANTOPRAZOLE 40 MG TABLET PO SCH (08:17)
[2022-02-01] MEDS: FUROSEMIDE 20 MG TAB PO SCH ×2 (08:17→16:08)
[2022-02-01] MEDS: BENZONATATE 100 MG CAP PO SCH ×3 (08:17→20:53)
[2022-02-01] MEDS: ASPIRIN 81 MG PO SCH (08:17)
[2022-02-01] MEDS: MULTIVITAMINS, THERA 1 EACH TAB PO SCH (08:17)
[2022-02-01] MEDS: SPIRONOLACTONE 25 MG TAB PO SCH ×3 (08:17→20:53)
[2022-02-01 09:21] LABS: Basophils # (A) 0.03 X 10*3/uL (0.00-0.10); Basophils % (A) 0.6 %; Eosinophils # (A) 0.09 X 10*3/uL (0.04-0.35); Eosinophils % (A) 1.7 %; HGB 10.9 g/dL (12.0-15.0); Immature Grans, Automated 0.2 %; Lymphocytes # (A) 1.73 X 10*3/uL (0.90-5.00); Lymphocytes % (A) 32.2 %; MCH 24.9 pg (27.0-32.0); MCHC 30.3 g/dL (32.0-37.0); MCV 82.2 fL (80.0-97.0); Monocytes # (A) 0.63 X 10*3/uL (0.20-1.00); Monocytes % (A) 11.7 %; NRBC Per 100 WBC 0 /100 WBCS (0.0-0.0); Neutrophils # (A) 2.89 X 10*3/uL (1.80-7.70); Neutrophils % (A) 53.6 %; Platelet Count 202 X 10*3/uL (140-440); RBC 4.38 X 10*6/uL (4.10-5.20); WBC 5.38 X 10*3/uL (4.50-10.00)
[2022-02-01] MEDS: HYDROcodone/APAP 5-325MG 1 EACH TAB PO PRN ×2 (11:06→22:08)
[2022-02-01] MEDS: FERROUS SULFATE 325 MG TAB PO SCH (20:54)
[2022-02-01] MEDS: lamoTRIgine 25 MG TAB PO SCH (20:54)
[2022-02-02] MEDS: VANCOMYCIN 1,250 MG in SODIUM CHLORIDE 0.9% 250 ML IVPB SCH ×2 (00:42→15:48)
--- NOTE | 2022-02-02 04:32 | PN ---
PROGRESS NOTE SUBJECTIVE: A 31-year-old white female. Her 3rd spacing of fluid is improved with high-dose Aldactone and Lasix. She has a history possibly some bipolar and drug addiction. Going to start her on Lamictal. Discussed this with her, which was diagnosed long- term. She is given she may go on the Lamictal. She has about 10 more days of vancomycin within normal. She has DS letter go to residential. Continue on Aldactone, Lasix. OBJECTIVE: CARDIOVASCULAR: S1-S2. HEMATOLOGY: Negative Homans. PSYCH: Fair mood and affect. CONDITION: Stable. PROGNOSIS: Guarded. Follow up in next 24 to 48 hours. Please see further orders from nursing. MMODL / IJN: [id number] /
[2022-02-02 04:44] LABS: African American GFR (CKD) >90 (>60 ml/min/1.73 sqM); Non-African American GFR(CKD) >90 (>60 ml/min/1.73 sqM)
--- NOTE | 2022-02-02 08:58 | P.PN ---
Subjective Progress Note Date: 01/31/22 Principal diagnosis: Left-sided empyema Patient is a 31-year-old female with a past medical history significant for IV drug use history of mitral valve endocarditis presented to hospital with left-sided chest pain or difficulty in breathing and this patient has been diagnosed with a left-sided empyema. patient is status post placement of left sided pigtail catheter by interventional radiology with removal of 660 mL purulent drainage on 01/21/2022 On today's evaluation that is 01/31/2022, the patient continues to be afebrile, the patient is breathing comfortably on room area, the patient did have occasion, but no or sputum production, the patient denies having any nausea no vomiting , Objective - Vital Signs Vital signs: Vital Signs Temp 97.7 F 01/31/22 08:00 Pulse 97 01/31/22 08:00 Resp 16 01/31/22 08:00 BP 131/90 01/31/22 08:00 Pulse Ox 98 01/31/22 08:00 FiO2 Intake & Output 01/30/22 01/31/22 01/31/22 18:59 06:59 18:59 Other: Voiding Method Toilet Toilet Toilet # Voids 3 2 - Exam GENERAL DESCRIPTION: Middle-age female lying in bed in no distress RESPIRATORY SYSTEM: Unlabored breathing , decreased breath sounds at bases HEART: S1 S2 regular rate and rhythm , ABDOMEN: Soft , no tenderness EXTREMITIES: 2+ edema feet - Labs CBC & Chem 7: 02/01/22 04:09 02/02/22 03:54 Labs: Abnormal Lab Results - Last 24 Hours (Table) 01/31/22 Range/Units 07:39 Albumin 2.6 L (3.5-5.0) g/dL Microbiology - Last 24 Hours (Table) 01/21/22 17:30 Fungal Culture - Preliminary Pleural Fluid Assessment and Plan (1) Empyema Current Visit: Yes Status: Acute Code(s): J86.9 - PYOTHORAX WITHOUT FISTULA SNOMED Code(s): 830841649 Plan: 1patient presented to hospital with left chest pain cough in this patient with evidence of abnormal CT concerning for possible empyema patient to have a history of IV drug use and will need to cover for both resistant gram-positive as well as gram-negative pathogen 2Patient is status post placement of left sided pigtail catheter by interventional radiology with removal of 660 mL purulent drainage, cultures are currently growing presumptive MRSA, blood culture has been negative 3-patient has shown shown clinical improvement and repeat CAT scan did showed almost complete resolution of the empyema 4the patient lower her fluid aspirated is also growing Bridget albicans, 5- patient to continue with Diflucan and vancomycin 2 weeks on discharge, patient is currently waiting for placement Time with Patient: Less than 30
--- NOTE | 2022-02-02 09:00 | P.PN ---
Subjective Progress Note Date: 02/01/22 Principal diagnosis: Left-sided empyema Patient is a 31-year-old female with a past medical history significant for IV drug use history of mitral valve endocarditis presented to hospital with left-sided chest pain or difficulty in breathing and this patient has been diagnosed with a left-sided empyema. patient is status post placement of left sided pigtail catheter by interventional radiology with removal of 660 mL purulent drainage on 01/21/2022 On today's evaluation that is 02/01/2022, the patient denies any fever or any chills, the patient is breathing comfortably on room area, the patient did have occasional cough but no or sputum production, the patient denies having any nausea no vomiting , has been complaining of some diarrhea Objective - Vital Signs Vital signs: Vital Signs Temp 98.8 F 02/01/22 20:00 Pulse 93 02/01/22 20:00 Resp 16 02/01/22 20:00 BP 125/96 02/01/22 20:00 Pulse Ox 98 02/01/22 20:00 FiO2 Intake & Output 02/01/22 02/01/22 02/02/22 06:59 18:59 06:59 Intake Total 1080 Balance 1080 Intake: Oral 1080 Other: Voiding Method Toilet Toilet # Voids 1 3 # Bowel Movements 1 - Exam GENERAL DESCRIPTION: Middle-age female lying in bed in no distress RESPIRATORY SYSTEM: Unlabored breathing , decreased breath sounds at bases HEART: S1 S2 regular rate and rhythm , ABDOMEN: Soft , no tenderness EXTREMITIES: 2+ edema feet - Labs CBC & Chem 7: 02/01/22 04:09 02/02/22 03:54 Labs: Abnormal Lab Results - Last 24 Hours (Table) 02/01/22 02/01/22 Range/Units 04:09 04:09 Hgb 10.9 L (12.0-15.0) g/dL Hct 36.0 L (37.2-46.3) % MCH 24.9 L (27.0-32.0) pg MCHC 30.3 L (32.0-37.0) g/dL RDW 19.0 H (11.5-14.5) % Glucose 71 L (74-99) mg/dL Calcium 8.3 L (8.4-10.2) mg/dL AST 46 H (14-36) U/L ALT 43 H (4-34) U/L Total Protein 5.4 L (6.3-8.2) g/dL Albumin 2.7 L (3.5-5.0) g/dL Assessment and Plan (1) Empyema Current Visit: Yes Status: Acute Code(s): J86.9 - PYOTHORAX WITHOUT FISTULA SNOMED Code(s): 271527029 Plan: 1patient presented to hospital with left chest pain cough in this patient with evidence of abnormal CT concerning for possible empyema patient to have a history of IV drug use and will need to cover for both resistant gram-positive as well as gram-negative pathogen 2Patient is status post placement of left sided pigtail catheter by interventi onal radiology with removal of 660 mL purulent drainage, cultures are currently growing presumptive MRSA, blood culture has been negative 3-patient has shown shown clinical improvement and repeat CAT scan did showed almost complete resolution of the empyema 4the patient lower her fluid aspirated is also growing Bridget albicans, 5- patient is currently waiting for placement , plan is to to continue with Diflucan and vancomycin 2 weeks on discharge 6-diarrhea advised to increase her probiotic and yogurt intake if it persists we'll check a stool for C. diff and treat if positive Time with Patient: Less than 30
[2022-02-02] MEDS: ALBUTEROL NEBULIZED 2.5 MG/3 ML INHALATION SCH ×2 (09:03→20:56)
[2022-02-02] MEDS: SPIRONOLACTONE 25 MG TAB PO SCH ×3 (09:29→21:09)
[2022-02-02] MEDS: lamoTRIgine 25 MG TAB PO SCH ×2 (09:29→21:09)
[2022-02-02] MEDS: MULTIVITAMINS, THERA 1 EACH TAB PO SCH (09:29)
[2022-02-02] MEDS: BENZONATATE 100 MG CAP PO SCH ×3 (09:29→21:08)
[2022-02-02] MEDS: ASPIRIN 81 MG PO SCH (09:30)
[2022-02-02] MEDS: FLUCONAZOLE 100 MG TAB PO SCH (09:30)
[2022-02-02] MEDS: CHOLESTYRAMINE (WITH SUGAR) 4 GM PACKET PO SCH ×2 (09:30→17:01)
[2022-02-02] MEDS: PANTOPRAZOLE 40 MG TABLET PO SCH (09:30)
[2022-02-02] MEDS: FUROSEMIDE 20 MG TAB PO SCH ×2 (09:30→15:48)
[2022-02-02] MEDS: HYDROcodone/APAP 5-325MG 1 EACH TAB PO PRN ×2 (09:38→17:04)
--- NOTE | 2022-02-02 10:55 | P.PN ---
Subjective Progress Note Date: 02/02/22 Principal diagnosis: Elevated LFTs This is a pleasant 31-year-old female patient with a known history of hepatitis C, IV drug abuse with heroin last used 11/03/2021, endocarditis, mitral valve replacement in 2019 at [facility], MRSA and a right hip. She has chronic and ongoing tobacco dependence. She also states she had a CoVID infection in November and has been short of breath since that time. She is currently incarcerated. She was brought over from the prison with complaints of right-sided chest pain, shortness of breath, cough and congestion. Chest x-ray revealed cardiomediastinal silhouette moderately enlarged. Postsurgical changes with valvular prosthesis. No evidence of pleural effusion. No focal consolidation. No pneumothorax. CT angiogram ruled out pulmonary embolism however there is noted large fluid collection within the anterior medial left pleural space with associated atelectasis. There is suggestion of enhancing pleura. No focal consolidation or pneumothorax. However, the CAT scan was further reviewed and is now being reported as a large fluid collection most likely in the pericardium. I 8 yesterday the patient underwent a CT-guided needle aspiration of fluid collection with interventional radiology of the left pleural space was 700 mL of pus drained out, pigtail catheter and Pleur-evac were placed. Presented with elevated LFTs consistent with hepatocellular disease however they have continued to increase so gastroenterology was consulted. Patient states that she really has not been following with anyone this she's been incarcerated over the last one years duration. She was diagnosed with hepatitis C and 2017 and treated with her bony, at that time she had seen Dr. Martines from infectious disease. She states that she continued to use hair when was shared needles and is now reinfected. She states her breathing is better, she states she does have some abdominal discomfort and swelling. On admission patient was noted to have total bilirubin 3.0 AST 360 ALT 183 alkaline phosphatase 105, there was some fluctuation in her labs and yesterday her total bilirubin was 2.0 AST 747 ALT 412 alkaline phosphatase 87. Repeat labs today are showing that they are trending down with total bilirubin 1.8 AST 296 ALT [address] abdomen and pelvis without contrast reports mildly enlarged right kidney com pared to the left with subcu fat stranding. This could be seen with pyelonephritis. No obstructing calculus. Diffuse anasarca with small volume ascites and mesenteric congestion suggesting fluid overload state. Small bilateral pleural effusion with pigtail drainage catheter in the left medial pl eural space collection. Patchy consolidation within the left lower lobe which may represent atelectasis versus infiltrate. Subtle nodular contour to the liver which raises concern for cirrhosis. Correlation with liver function tests recommended. 02/02/2022: Patient is seen today as a follow-up. There was no GI present in the hospital last week. Patient remains in the hospital for empyema, MRSA. Gastroenterology has seen patient for elevated LFTs with a history of hepatitis C. She currently states she has some abdominal discomfort, no nausea or vomiting. LFTs have continued to trend down total bilirubin 0.8 AST 46 ALT 43 alkaline phosphatase 82 hepatitis C antibody was reactive, are qualitative detected, [employer] quantitative 2,538,598, R knee PCR log 6.4, hepatitis C genotype 3A Objective - Vital Signs Vital signs: Vital Signs Temp 97.8 F 02/02/22 07:52 Pulse 94 02/02/22 07:52 Resp 16 02/02/22 07:52 BP 115/82 02/02/22 07:52 Pulse Ox 98 02/02/22 07:52 FiO2 Intake & Output 02/01/22 02/02/22 02/02/22 18:59 06:59 18:59 Intake Total 1080 Output Total 3 Balance 1080 -3 Intake: Oral 1080 Output: Urine 3 Other: Voiding Method Toilet Toilet Toilet # Voids 3 1 # Bowel Movements 1 - Exam General appearance: The patient is alert, oriented, appears in no acute distress. HET: Head is normocephalic and atraumatic. Conjunctiva pink. Sclera anicteric. Neck: Supple without lymphadenopathy. Abdomen: Soft, nontender, nondistended with bowel sounds. No guarding or rigidity. Extremities: Normal skin color and turgor. No pedal edema Skin: No rashes, no jaundice Neurological: No focal deficits. Alert and oriented. - Labs CBC & Chem 7: 02/01/22 04:09 02/02/22 03:54 Assessment and Plan (1) Cirrhosis of liver Narrative/Plan: 31-year-old female with a significant history of IV drug abuse last used in November of this year. Patient diagnosed with hepatitis C in 2016 at that time she was seen by Dr. Gerardo Ram given hard bony. Patient states she's been reinfected due to continued heroin use and sharing of needles. gastroenterology consulted for elevated LFTs. LFTs are consistent with underlying cirrhosis of the liver however have markedly gone up throughout her stay. Likely related to sepsis and possible superimposed medication induced hepatitis. LFTs are now trending down. Of course patient will need outpatient follow-up with either infectious disease or gastroenterology for hepatitis C treatment. We'll proceed with a hepatitis panel and serology. Current Visit: Yes Status: Acute Code(s): K74.60 - UNSPECIFIED CIRRHOSIS OF LIVER SNOMED Code(s): 72335158 (2) Hepatitis C Narrative/Plan: Hepatitis C serology and quantitative and genotype ordered and resulted. Recommend outpatient follow-up with the infectious disease or gastroenterology for hepatitis C treatment. This was discussed with the patient who agrees with outpatient follow-up. In the past she has seen Dr. Martines for previous treatment. Current Visit: Yes Status: Acute Code(s): B19.20 - UNSPECIFIED VIRAL HEPATITIS C WITHOUT HEPATIC COMA SNOMED Code(s): 31370551 (3) Empyema Current Visit: Yes Status: Acute Code(s): J86.9 - PYOTHORAX WITHOUT FISTULA SNOMED Code(s): 524767807 (4) Sepsis Current Visit: Yes Status: Acute Code(s): A41.9 - SEPSIS, UNSPECIFIED ORGANISM SNOMED Code(s): 62118645 Plan: 1. Continue supportive care 2. Avoid hepatotoxic medications 3. Hepatitis serologies ordered, hepatitis C RNA and genotype ordered 4. Patient to follow-up with the infectious disease or gastroenterology outpatient for hepatitis C treatment Thank you for this consultation, we will sign off at this time. Dr. Sirisha Fitzgerald I agree with the dictator's note, documented as a scribe by Mamta Pope.
--- NOTE | 2022-02-02 14:20 | P.PN ---
Subjective Progress Note Date: 02/02/22 This is a 31-year-old female patient with history of IVDA, hepatitis C, endocarditis, mitral valve replacement 2019, and previous history of MRSA right hip fracture infection. The patient is currently in the hospital as she is recovering from a pneumonia. The patient had a large fluid collection displac ing her heart and appears to be contiguous with the superior pericardial recess. The patient underwent a left-sided chest catheter placement on 01/22/2022 and the catheter was ultimately removed on 01/27/2022. Subsequent CAT scan of the chest that was done on 01/26/2022 showed interval improvement. The patient stated noted pleural fluid had decreased in size and resolved almost completely. The mitral biology from the fluid was positive for MRSA. The patient remains on antibiotics and currently she is still on IV vancomycin via PICC line in her left upper extremity. At the same time, subsequent chest x-rays that were done including the last that was done on 01/28/2022 showed no evidence of any complications from tube removal. Ultrasound of the liver showed cholelithiasis and heterogeneous at the rate of the liver consistent with liver cirrhosis as the patient is known case of hepatitis C. Her renal function is stable. Lites echoes down to 5.3 with a hemoglobin of 10.9. Normal electrolytes. LFTs are slightly elevated with an AST of 46 and LDL 43. The patient is currently he modynamically stable. The patient on room air oxygen. Temperature is 97.8. No other significant events otherwise for now. Echocardiogram showed no evidence of any vegetation. Objective - Vital Signs Vital signs: Vital Signs Temp 97.8 F 02/02/22 07:52 Pulse 94 02/02/22 07:52 Resp 16 02/02/22 07:52 BP 115/82 02/02/22 07:52 Pulse Ox 98 02/02/22 07:52 FiO2 Intake & Output 02/01/22 02/02/22 02/02/22 18:59 06:59 18:59 Intake Total 1080 Output Total 3 Balance 1080 -3 Intake: Oral 1080 Output: Urine 3 Other: Voiding Method Toilet Toilet Toilet # Voids 3 1 # Bowel Movements 1 - Exam GENERAL EXAM: Alert, 31-year-old female, on room air, comfortable in no apparent distress. HEAD: Normocephalic. EYES: Normal reaction of pupils, equal size. NOSE: Clear with pink turbinates. THROAT: No erythema or exudates. NECK: No masses, no JVD. CHEST: No chest wall deformity. Left-sided chest tube removed LUNGS: Equal air entry with crackles in the left lung base, diminished. CVS: S1 and S2 normal with no audible murmur, regular rhythm. ABDOMEN: No hepatosplenomegaly, normal bowel sounds, no guarding or rigidity. SPINE: No scoliosis or deformity SKIN: No rashes CENTRAL NERVOUS SYSTEM: No focal deficits, tone is normal in all 4 extremities. EXTREMITIES: There is no peripheral edema. No clubbing, no cyanosis. Peripheral pulses are intact. - Labs CBC & Chem 7: 02/01/22 04:09 02/02/22 03:54 Labs: Microbiology - Last 24 Hours (Table) 01/21/22 15:30 Acid Fast Bacilli Smear - Final Pleural Fluid Acid Fast Bacilli Culture - Preliminary 01/21/22 20:21 Acid Fast Bacilli Smear - Final Aspirate Acid Fast Bacilli Culture - Preliminary Assessment and Plan Plan: left lung empyema with secondary Chest pain with shortness of breath secondary to a large fluid collection displacing the heart and appears contiguous with superior pericardial recess. Status post left chest catheter placement on 01/22/2022. Removed on 01/27/2022. Follow up computed tomography scan of the chest shows improvement. Cultures positive for MRSA. Continued on vancomycin. Plan is for 2 more weeks of treatment. 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
[2022-02-02] MEDS ORDERED: VANCOMYCIN TROUGH DUE 1 EACH MISC MISCELLANE ONE (15:00)
--- NOTE | 2022-02-02 18:38 | P.PN ---
Progress Note - Text Progress Note Date: 02/02/22 Presenting complaint: Cough Hospital course: I'm rounding for Dr. Saroj Pineda. This is a patient history of IVDA, hepatitis C, dermatitis, mitral valve replacement in 2019, and a prior history of MRSA right hip and fracture infection. Patient admitted with this large fluid collection displacing the heart underwent a left-sided chest catheter placement on January 22. Removed on January 27. Repeat computed tomography scan showed improvement. Pleural fluid daily completely resolved. Positive for MRSA. On IV vancomycin has a PICC line in left upper extremity. Patient suspected of underlying hepatitis C cirrhosis. 02/02/2022: Sitting up on the bench The window and improved. Oral intake fair. Had a BM. Congested cough. Has had a BM. Case management is looking into placement. No fever no chills. Consultation made to GI because of history of hepatitis C/cirrhosis. Congested cough but unable to expectorate. Active Medications Hydrocodone Bitart/Acetaminophen (Hydrocodone/Apap 5-325mg 1 Each Tab) 1 each PO Q6HR PRN PRN Reason: Pain Last Admin: 02/02/22 17:04 Dose: 1 each Albuterol Sulfate (Albuterol Nebulized 2.5 Mg/3 Ml) 2.5 mg INHALATION RT-BID [facility] Last Admin: 02/02/22 09:03 Dose: Not Given Aspirin (Aspirin 81 Mg) 81 mg PO DAILY [facility] Last Admin: 02/02/22 09:30 Dose: 81 mg Benzonatate (Benzonatate 100 Mg Cap) 200 mg PO TID [facility] Last Admin: 02/02/22 15:48 Dose: 200 mg Cholestyramine Resin (Cholestyramine (With Sugar) 4 Gm Packet) 4 gm PO BID@1000,1800 [facility] Last Admin: 02/02/22 17:01 Dose: Not Given Diphenhydramine HCl (Diphenhydramine 25 Mg Cap) 25 mg PO TID PRN PRN Reason: Allergic Reaction Last Admin: 01/23/22 01:33 Dose: 25 mg Ferrous Sulfate (Ferrous Sulfate 325 Mg Tab) 325 mg PO HS [facility] Last Admin: 02/01/22 20:54 Dose: 325 mg Fluconazole (Fluconazole 100 Mg Tab) 200 mg PO DAILY [facility]; Protocol Last Admin: 02/02/22 09:30 Dose: 200 mg Furosemide (Furosemide 20 Mg Tab) 20 mg PO BID@0900,1600 [facility] Last Admin: 02/02/22 15:48 Dose: 20 mg Guaifenesin/Dextromethorphan (Guaifenesin-Dm 100-10mg/5ml 10 Ml Cup) 10 ml PO Q6HR PRN PRN Reason: Cough Last Admin: 01/30/22 06:51 Dose: 10 ml Vancomycin HCl 1,250 mg/ (Sodium Chloride) 250 mls @ 125 mls/hr IVPB Q16H [facility] Last Admin: 02/02/22 15:48 Dose: 125 mls/hr Lamotrigine (Lamotrigine 25 Mg Tab) 50 mg PO BID [facility] Last Admin: 02/02/22 09:29 Dose: 50 mg Miscellaneous Information (Potassium Replacement Protocol 1 Each Misc) 1 each MISCELLANE DAILY PRN; Protocol PRN Reason: Per Protocol Multivitamins (Multivitamins, Thera 1 Each Tab) 1 each PO DAILY [facility] Last Admin: 02/02/22 09:29 Dose: 1 each Ondansetron HCl (Ondansetron 4 Mg/2 Ml Vial) 4 mg IVP Q6HR PRN PRN Reason: Nausea And Vomiting Last Admin: 01/31/22 19:29 Dose: 4 mg Pantoprazole Sodium (Pantoprazole 40 Mg Tablet) 40 mg PO AC-[id number] [facility] Last Admin: 02/02/22 09:30 Dose: 40 mg Sodium Chloride (Sodium Chloride 0.9% Flush 10 Ml Syringe) 10 ml IV Q4HR PRN PRN Reason: PICC Line Sodium Chloride (Sodium Chloride 0.9% Flush 10 Ml Syringe) 10 ml IV WEEKLY [facility] Last Admin: 01/30/22 10:34 Dose: Not Given Sodium Chloride (Sodium Chloride 0.9% Flush 10 Ml Syringe) 20 ml IV Q4HR PRN PRN Reason: PICC Line Spironolactone (Spironolactone 25 Mg Tab) 100 mg PO TID [facility] Last Admin: 02/02/22 15:48 Dose: 100 mg On examination: VITAL SIGNS: [97.8, 94, 16, 150/82, 98% room air] GENERAL APPEARANCE: Sitting up appears comfortable.. HEENT: Normal external appearance of nose and ear. Oral cavity normal EYES: Pupils equal. Conjunctiva normal. NECK: JVD not raised. Mass not palpable. RESPIRATORY: Respiratory effort normal. Lungs clear to auscultation. CARDIOVASCULAR: First and second sounds normal. No edema. ABDOMEN: Soft. Liver and spleen not palpable. No tenderness. No mass palpable. PSYCHIATRY: Alert and oriented x3. Mood and affect normal. INVESTIGATIONS, reviewed in the clinical context: WBC 5.3 hemoglobin 10.9 platelets 202 potassium 4.1 creatinine 0.78 AST 46 ALT 43 albumin 2.7 C. diff: Negative Liver ultrasound: Gallstones. Heterogenesis appearance to the liver compatible with cirrhosis. CBD that dilated at 0.8 cm. HCV RNA PCR: Detected, hepatitis C genotype 3A log 6.4 quantitative: [id number] Assessment and plan: -Empyema in a patient with prior history of IV drug use, but fluid culture positive for MRSA. Also culture coming back positive for Bridget albicans. IV vancomycin. Diflucan. Follow with ID and pulmonary. -Liver cirrhosis secondary to hepatitis C likely. Consult GI. On Aldactone. Lasix. Fluid restriction -Acute versus chronic hepatitis C infection Consult GI -Hypoalbuminemia secondary to cirrhosis -Normocytic microcytic underlying cirrhosis. may have other contribution factors. Check iron studies -Chronic nicotine dependence, cigarette smoker Nicotine patch J fluid restriction to 1500 mL day. On Aldactone and Lasix. GI consulted. Check iron studies. Nicotine patch. Spoke to director case management. Looking for placement. Check iron studies.
[2022-02-02] MEDS: NICOTINE 14MG/24HR PATCH TRANSDERM SCH (21:09)
[2022-02-02] MEDS: FERROUS SULFATE 325 MG TAB PO SCH (21:09)
[2022-02-03 00:19] LABS: % Iron Saturation 6.36 (12.00-45.00)
[2022-02-03] MEDS: PANTOPRAZOLE 40 MG TABLET PO SCH (06:58)
[2022-02-03] MEDS: ALBUTEROL NEBULIZED 2.5 MG/3 ML INHALATION SCH ×2 (07:24→19:19)
--- NOTE | 2022-02-03 08:25 | P.PN ---
Subjective Progress Note Date: 02/02/22 Principal diagnosis: Left-sided empyema Patient is a 31-year-old female with a past medical history significant for IV drug use history of mitral valve endocarditis presented to hospital with left-sided chest pain or difficulty in breathing and this patient has been diagnosed with a left-sided empyema. patient is status post placement of left sided pigtail catheter by interventional radiology with removal of 660 mL purulent drainage on 01/21/2022 On today's evaluation that is 02/02/2022 the patient remains to be afebrile, the patient is currently breathing comfortably on room air denies having any chest pain or shortness of breath or cough no nausea vomiting no abdominal pain and the patient diarrhea has resolved Objective - Vital Signs Vital signs: Vital Signs Temp 97.8 F 02/02/22 07:52 Pulse 94 02/02/22 07:52 Resp 16 02/02/22 07:52 BP 115/82 02/02/22 07:52 Pulse Ox 98 02/02/22 07:52 FiO2 Intake & Output 02/01/22 02/02/22 02/02/22 18:59 06:59 18:59 Intake Total 1080 Output Total 3 Balance 1080 -3 Intake: Oral 1080 Output: Urine 3 Other: Voiding Method Toilet Toilet Toilet # Voids 3 1 # Bowel Movements 1 - Exam GENERAL DESCRIPTION: Middle-age female lying in bed in no distress RESPIRATORY SYSTEM: Unlabored breathing , decreased breath sounds at bases HEART: S1 S2 regular rate and rhythm , ABDOMEN: Soft , no tenderness EXTREMITIES: 2+ edema feet - Labs CBC & Chem 7: 02/01/22 04:09 02/02/22 03:54 Labs: Microbiology - Last 24 Hours (Table) 01/21/22 15:30 Acid Fast Bacilli Smear - Final Pleural Fluid Acid Fast Bacilli Culture - Preliminary 01/21/22 20:21 Acid Fast Bacilli Smear - Final Aspirate Acid Fast Bacilli Culture - Preliminary Assessment and Plan (1) Empyema Current Visit: Yes Status: Acute Code(s): J86.9 - PYOTHORAX WITHOUT FISTULA SNOMED Code(s): 909213142 Plan: 1patient presented to hospital with left chest pain cough in this patient with evidence of abnormal CT concerning for possible empyema patient to have a history of IV drug use and will need to cover for both resistant gram-positive as well as gram-negative pathogen 2Patient is status post placement of left sided pigtail catheter by interventional radiology with removal of 660 mL purulent drainage, cultures are currently growing presumptive MRSA, blood culture has been negative 3-patient repeat CAT scan did showed almost complete resolution of the empyema 4the patient lower her fluid aspirated is also growing Bridget albicans, 5- Patient diarrhea has resolved advised to increase her probiotic intake Questran as needed. 6patient to continue with the vancomycin and Diflucan to finish her course of therapy currently waiting for placement Time with Patient: Less than 30
[2022-02-03] MEDS: FLUCONAZOLE 100 MG TAB PO SCH (09:29)
[2022-02-03] MEDS: FUROSEMIDE 20 MG TAB PO SCH ×2 (09:29→16:27)
[2022-02-03] MEDS: SPIRONOLACTONE 25 MG TAB PO SCH ×3 (09:29→20:33)
[2022-02-03] MEDS: lamoTRIgine 25 MG TAB PO SCH ×2 (09:29→20:31)
[2022-02-03] MEDS: VANCOMYCIN 1,250 MG in SODIUM CHLORIDE 0.9% 250 ML IVPB SCH (09:30)
[2022-02-03] MEDS: BENZONATATE 100 MG CAP PO SCH ×3 (09:30→20:34)
[2022-02-03] MEDS: MULTIVITAMINS, THERA 1 EACH TAB PO SCH (09:30)
[2022-02-03] MEDS: ASPIRIN 81 MG PO SCH (09:30)
[2022-02-03] MEDS: HYDROcodone/APAP 5-325MG 1 EACH TAB PO PRN ×2 (09:31→20:34)
[2022-02-03] MEDS: NICOTINE 14MG/24HR PATCH TRANSDERM SCH (09:32)
[2022-02-03] MEDS: CHOLESTYRAMINE (WITH SUGAR) 4 GM PACKET PO SCH ×2 (09:33→16:28)
[2022-02-03] MEDS ORDERED: FUROSEMIDE 10 MG/ML 4 ML VIAL IV STA (12:49)
--- NOTE | 2022-02-03 13:31 | P.PN ---
Subjective Progress Note Date: 02/03/22 This is a 31-year-old female patient with history of IVDA, hepatitis C, endocarditis, mitral valve replacement 2019, and previous history of MRSA right hip infec infection. The patient is currently in the hospital as she is recovering from a pneumonia. The patient had a large fluid collection displacing her heart and appears to be contiguous with the superior pericardial recess. The patient underwent a left-sided chest catheter placement on 01/22/2022 and the catheter was ultimately removed on 01/27/2022. Subsequent CAT scan of the chest that was done on 01/26/2022 showed interval improvement. The patient stated noted pleural fluid had decreased in size and resolved almost completely. The mitral biology from the fluid was positive for MRSA. The patient remains on antibiotics and currently she is still on IV vancomycin via PICC line in her left upper extremity. At the same time, subsequent chest x- rays that were done including the last that was done on 01/28/2022 showed no evidence of any complications from tube removal. Ultrasound of the liver showed cholelithiasis and heterogeneous at the rate of the liver consistent with liver cirrhosis as the patient is known case of hepatitis C. Her renal function is stable. Lites echoes down to 5.3 with a hemoglobin of 10.9. Normal eugene ctrolytes. LFTs are slightly elevated with an AST of 46 and LDL 43. The patient is currently hemodynamically stable. The patient on room air oxygen. Temperature is 97.8. No other significant events otherwise for now. Echocardiogram showed no evidence of any vegetation. On today's evaluation of 02/03/2022, the patient is complaining of some edema in lower extremities and abdominal area. This patient is a complicated history of a empyema of the lung that was drained percutaneously. Subsequent CAT scan of the chest showed improvement. The microbiology was consistent with MRSA and the patient remains on IV antibiotics with a PICC line in the left upper extremity the patient remains on IV vancomycin. She has previous history of infective endocarditis of the tricuspid valve. She has hepatitis C and previous history of mitral valve replacement 2019. Had echocardiogram that was done during this current admission showed no evidence of any vegetation. Her most recent blood work is from 02/01/2022. Her iron level was low at 28 and the patient will be given IV iron. Vancomycin trough is 18.4 the patient is currently on oral diuretics and she is on Aldactone 100 mg by mouth 3 times a day. She is also on Lasix 20 mg by mouth twice a day. Fundi Objective - Vital Signs Vital signs: Vital Signs Temp 98.4 F 02/03/22 07:47 Pulse 88 02/03/22 10:51 Resp 17 02/03/22 10:51 BP 113/82 02/03/22 07:47 Pulse Ox 98 02/03/22 07:47 FiO2 Intake & Output 02/02/22 02/03/22 02/03/22 18:59 06:59 18:59 Other: Voiding Method Toilet Toilet Toilet # Voids 3 4 - Exam GENERAL EXAM: Alert, 31-year-old female, on room air, comfortable in no apparent distress. HEAD: Normocephalic. EYES: Normal reaction of pupils, equal size. NOSE: Clear with pink turbinates. THROAT: No erythema or exudates. NECK: No masses, no JVD. CHEST: No chest wall deformity. Left-sided chest tube removed LUNGS: Equal air entry with crackles in the left lung base, diminished. CVS: S1 and S2 normal with no audible murmur, regular rhythm. ABDOMEN: No hepatosplenomegaly, normal bowel sounds, no guarding or rigidity. SPINE: No scoliosis or deformity SKIN: No rashes CENTRAL NERVOUS SYSTEM: No focal deficits, tone is normal in all 4 extremities. EXTREMITIES: There is peripheral edema. No clubbing, no cyanosis. Peripheral pulses are intact. - Labs CBC & Chem 7: 02/01/22 04:09 02/02/22 03:54 Labs: Abnormal Lab Results - Last 24 Hours (Table) 02/02/22 Range/Units 15:24 Iron 28 L (50-170) ug/dL % Saturation 6.36 L (12.00-45.00) Microbiology - Last 24 Hours (Table) 01/21/22 15:30 Acid Fast Bacilli Smear - Final Pleural Fluid Acid Fast Bacilli Culture - Preliminary 01/21/22 20:21 Acid Fast Bacilli Smear - Final Aspirate Acid Fast Bacilli Culture - Preliminary Assessment and Plan Plan: left lung empyema with secondary Chest pain with shortness of breath secondary to a large fluid collection displacing the heart and appears contiguous with superior pericardial recess. Status post left chest catheter placement on 01/22/2022. Removed on 01/27/2022. Follow up computed tomography scan of the chest shows improvement. Cultures positive for MRSA. Continued on vancomycin. Plan is for 2 more weeks of treatment. Currently still on IV antibiotics with IV vancomycin History of heroin use, last used 11/03/2021 Recently incarcerated secondary to above History of COVID-19 infection in November 2021 History of bacterial endocarditis with tricuspid valve repair in January 2020 at [facility], maintained on baby aspirin History of hepatitis C Mild transaminitis, ultrasound revealed evidence of cholecystitis without gallbladder wall thickening, liver within normal limits History of chronic tobacco dependence History of MRSA in the right hip History of hypertension History of acid reflux disease Peripheral edema Plan: clinically stable No signs of any sepsis No cardiac vegetations Continue Lasix and give her 20 mg twice a day and given Zaroxolyn 2.5 mg twice a day for the next 3 days to mobilize and facilitate diuresis.. Continue Aldactone Continued on vancomycin per ID services discharge planning is in progress
[2022-02-03] MEDS: metOLazone 2.5 MG TAB PO SCH ×2 (14:39→20:31)
--- NOTE | 2022-02-03 14:39 | P.PN ---
Progress Note - Text Progress Note Date: 02/03/22 Presenting complaint: Cough Hospital course: I'm rounding for Dr. Saroj Pineda. This is a patient history of IVDA, hepatitis C, dermatitis, mitral valve replacement in 2019, and a prior history of MRSA right hip and fracture infection. Patient admitted with this large fluid collection displacing the heart underwent a left-sided chest catheter placement on January 22. Removed on January 27. Repeat computed tomography scan showed improvement. Pleural fluid daily completely resolved. Positive for MRSA. On IV vancomycin has a PICC line in left upper extremity. Patient suspected of underlying hepatitis C cirrhosis. 02/02/2022: Sitting up on the bench, Near the window feels better. Oral intake fair. Had a BM. Congested cough. Has had a BM. Case management is looking into placement. No fever no chills. Consultation made to GI because of history of hepatitis C/cirrhosis. Congested cough but unable to expectorate. 02/03/2022: On IV vancomycin. On diuretics. Feels a bit puffy. Extra dose of IV Lasix ordered. Seen by GI. Patient follow-up outpatient. Up to the [facility] Ensure added. Active Medications Hydrocodone Bitart/Acetaminophen (Hydrocodone/Apap 5-325mg 1 Each Tab) 1 each PO Q6HR PRN PRN Reason: Pain Last Admin: 02/03/22 09:31 Dose: 1 each Albuterol Sulfate (Albuterol Nebulized 2.5 Mg/3 Ml) 2.5 mg INHALATION RT-BID [facility] Last Admin: 02/03/22 07:24 Dose: Not Given Aspirin (Aspirin 81 Mg) 81 mg PO DAILY [facility] Last Admin: 02/03/22 09:30 Dose: 81 mg Benzonatate (Benzonatate 100 Mg Cap) 200 mg PO TID [facility] Last Admin: 02/03/22 09:30 Dose: 200 mg Cholestyramine Resin (Cholestyramine (With Sugar) 4 Gm Packet) 4 gm PO BID@1000,1800 [facility] Last Admin: 02/03/22 09:33 Dose: Not Given Diphenhydramine HCl (Diphenhydramine 25 Mg Cap) 25 mg PO TID PRN PRN Reason: Allergic Reaction Last Admin: 01/23/22 01:33 Dose: 25 mg Ferrous Sulfate (Ferrous Sulfate 325 Mg Tab) 325 mg PO HS [facility] Last Admin: 02/02/22 21:09 Dose: 325 mg Fluconazole (Fluconazole 100 Mg Tab) 200 mg PO DAILY [facility]; Protocol Last Admin: 02/03/22 09:29 Dose: 200 mg Furosemide (Furosemide 20 Mg Tab) 20 mg PO BID@0900,1600 [facility] Last Admin: 02/03/22 09:29 Dose: 20 mg Guaifenesin/Dextromethorphan (Guaifenesin-Dm 100-10mg/5ml 10 Ml Cup) 10 ml PO Q6HR PRN PRN Reason: Cough Last Admin: 01/30/22 06:51 Dose: 10 ml Vancomycin HCl 1,250 mg/ (Sodium Chloride) 250 mls @ 125 mls/hr IVPB Q16H [facility] Last Admin: 02/03/22 09:30 Dose: 125 mls/hr Lamotrigine (Lamotrigine 25 Mg Tab) 50 mg PO BID [facility] Last Admin: 02/03/22 09:29 Dose: 50 mg Metolazone (Metolazone 2.5 Mg Tab) 2.5 mg PO BID [facility] Stop: 02/05/22 21:01 Miscellaneous Information (Potassium Replacement Protocol 1 Each Misc) 1 each MISCELLANE DAILY PRN; Protocol PRN Reason: Per Protocol Multivitamins (Multivitamins, Thera 1 Each Tab) 1 each PO DAILY [facility] Last Admin: 02/03/22 09:30 Dose: 1 each Nicotine (Nicotine 14mg/24hr Patch) 1 patch TRANSDERM DAILY [facility] Last Admin: 02/03/22 09:32 Dose: Not Given Ondansetron HCl (Ondansetron 4 Mg/2 Ml Vial) 4 mg IVP Q6HR PRN PRN Reason: Nausea And Vomiting Last Admin: 01/31/22 19:29 Dose: 4 mg Pantoprazole Sodium (Pantoprazole 40 Mg Tablet) 40 mg PO AC-BRKFST [facility] Last Admin: 02/03/22 06:58 Dose: 40 mg Spironolactone (Spironolactone 25 Mg Tab) 100 mg PO TID [facility] Last Admin: 02/03/22 09:29 Dose: 100 mg On examination: VITAL SIGNS: 98.4, 88, 17, 113.2, 98% room air GENERAL APPEARANCE: comfortable.. HEENT: Normal external appearance of nose and ear. Oral cavity normal EYES: Pupils equal. Conjunctiva normal. NECK: JVD not raised. Mass not palpable. RESPIRATORY: Respiratory effort normal. Lungs clear to auscultation. CARDIOVASCULAR: First and second sounds normal. Slight edema. ABDOMEN: Soft. Liver and spleen not palpable. No tenderness. No mass palpable. PSYCHIATRY: Alert and oriented x3. Mood and affect normal. INVESTIGATIONS, reviewed in the clinical context: Iron 28 TIBC 434% saturated 6.36 ferritin 169 WBC 5.3 hemoglobin 10.9 platelets 202 potassium 4.1 creatinine 0.78 AST 46 ALT 43 albumin 2.7 C. diff: Negative Liver ultrasound: Gallstones. Heterogenesis appearance to the liver compatible with cirrhosis. CBD that dilated at 0.8 cm. HCV RNA PCR: Detected, hepatitis C genotype 3A log 6.4 quantitative: [id number] Assessment and plan: -Empyema in a patient with prior history of IV drug use, but fluid culture positive for MRSA. Also culture coming back positive for Bridget albicans. IV vancomycin. Diflucan. Follow with ID and pulmonary. -Liver cirrhosis secondary to hepatitis C likely. Follow with GI outpatient.. On Aldactone. Lasix. Fluid restriction -Acute versus chronic hepatitis C infection Consult GI -Hypoalbuminemia secondary to cirrhosis -Normocytic microcytic underlying cirrhosis. An iron deficient anemia. IV Ferrlecit -Chronic nicotine dependence, cigarette smoker Nicotine patch Additional dose of IV Lasix 40 mg. Other medications to follow. Pending placement. IV Ferrlecit.
[2022-02-03] MEDS: SODIUM FERRIC GLUCONAT-SUCROSE 125 MG in SODIUM CHLORIDE 0.9% 100 ML IVPB SCH (16:28)
[2022-02-03] MEDS: FERROUS SULFATE 325 MG TAB PO SCH (20:31)
[2022-02-04] MEDS: VANCOMYCIN 1,250 MG in SODIUM CHLORIDE 0.9% 250 ML IVPB SCH (01:03)
[2022-02-04] MEDS: diphenhydrAMINE 25 MG CAP PO PRN (01:11)
[2022-02-04] MEDS: ALBUTEROL NEBULIZED 2.5 MG/3 ML INHALATION SCH (07:20)
[2022-02-04] MEDS: BENZONATATE 100 MG CAP PO SCH (10:08)
[2022-02-04] MEDS: SPIRONOLACTONE 25 MG TAB PO SCH (10:08)
[2022-02-04] MEDS: PANTOPRAZOLE 40 MG TABLET PO SCH (10:08)
[2022-02-04] MEDS: FLUCONAZOLE 100 MG TAB PO SCH (10:08)
[2022-02-04] MEDS: MULTIVITAMINS, THERA 1 EACH TAB PO SCH (10:09)
[2022-02-04] MEDS: HYDROcodone/APAP 5-325MG 1 EACH TAB PO PRN (10:09)
[2022-02-04] MEDS: lamoTRIgine 25 MG TAB PO SCH (10:09)
[2022-02-04] MEDS: ASPIRIN 81 MG PO SCH (10:09)
[2022-02-04] MEDS: metOLazone 2.5 MG TAB PO SCH (10:10)
[2022-02-04] MEDS: FUROSEMIDE 20 MG TAB PO SCH (10:10)
[2022-02-04] MEDS: SODIUM FERRIC GLUCONAT-SUCROSE 125 MG in SODIUM CHLORIDE 0.9% 100 ML IVPB SCH (10:11)
[2022-02-04] MEDS: CHOLESTYRAMINE (WITH SUGAR) 4 GM PACKET PO SCH (10:11)
[2022-02-04] MEDS: NICOTINE 14MG/24HR PATCH TRANSDERM SCH (10:11)
[2022-02-04] MEDS ORDERED: FUROSEMIDE 10 MG/ML 4 ML VIAL IV STA (10:21)
[2022-02-04 10:45] VITALS: BP 109/75
--- NOTE | 2022-02-04 11:50 | P.PN ---
Subjective Progress Note Date: 02/04/22 This is a 31-year-old female patient with history of IVDA, hepatitis C, endocarditis, mitral valve replacement 2019, and previous history of MRSA right hip infec infection. The patient is currently in the hospital as she is recovering from a pneumonia. The patient had a large fluid collection displacing her heart and appears to be contiguous with the superior pericardial recess. The patient underwent a left-sided chest catheter placement on 01/22/2022 and the catheter was ultimately removed on 01/27/2022. Subsequent CAT scan of the chest that was done on 01/26/2022 showed interval improvement. The patient stated noted pleural fluid had decreased in size and resolved almost completely. The mitral biology from the fluid was positive for MRSA. The patient remains on antibiotics and currently she is still on IV vancomycin via PICC line in her left upper extremity. At the same time, subsequent chest x- rays that were done including the last that was done on 01/28/2022 showed no evidence of any complications from tube removal. Ultrasound of the liver showed cholelithiasis and heterogeneous at the rate of the liver consistent with liver cirrhosis as the patient is known case of hepatitis C. Her renal function is stable. Lites echoes down to 5.3 with a hemoglobin of 10.9. Normal eugene ctrolytes. LFTs are slightly elevated with an AST of 46 and LDL 43. The patient is currently hemodynamically stable. The patient on room air oxygen. Temperature is 97.8. No other significant events otherwise for now. Echocardiogram showed no evidence of any vegetation. On today's evaluation of 02/03/2022, the patient is complaining of some edema in lower extremities and abdominal area. This patient is a complicated history of a empyema of the lung that was drained percutaneously. Subsequent CAT scan of the chest showed improvement. The microbiology was consistent with MRSA and the patient remains on IV antibiotics with a PICC line in the left upper extremity the patient remains on IV vancomycin. She has previous history of infective endocarditis of the tricuspid valve. She has hepatitis C and previous history of mitral valve replacement 2019. Had echocardiogram that was done during this current admission showed no evidence of any vegetation. Her most recent blood work is from 02/01/2022. Her iron level was low at 28 and the patient will be given IV iron. Vancomycin trough is 18.4 the patient is currently on oral diuretics and she is on Aldactone 100 mg by mouth 3 times a day. She is also on Lasix 20 mg by mouth twice a day. 02 04 2022, patient is still awaiting to be placed. Her Covid 19 testing came back negative. She remains on IV vancomycin. She has a PICC line. No new complaints. She did have some increased edema lower oximetry is bilaterally. I kept on her usual diuretics and I added Zaroxolyn. Urine output has not been recorded. Her blood work today is still pending. Most recent blood work is from 02/01/2022. The patient reports improvement in lower extremity edema. I think is reasonable to repeat another set of electrolytes prior to her departure to [facility] Objective - Vital Signs Vital signs: Vital Signs Temp 97.4 F L 02/04/22 07:45 Pulse 80 02/04/22 10:44 Resp 18 02/04/22 07:45 BP 109/75 02/04/22 10:44 Pulse Ox 97 02/04/22 07:45 FiO2 Intake & Output 02/03/22 02/04/22 02/04/22 18:59 06:59 18:59 Other: Voiding Method Toilet Toilet Toilet # Voids 3 11 - Exam GENERAL EXAM: Alert, 31-year-old female, on room air, comfortable in no apparent distress. HEAD: Normocephalic. EYES: Normal reaction of pupils, equal size. NOSE: Clear with pink turbinates. THROAT: No erythema or exudates. NECK: No masses, no JVD. CHEST: No chest wall deformity. Left-sided chest tube removed LUNGS: Equal air entry with crackles in the left lung base, diminished. CVS: S1 and S2 normal with no audible murmur, regular rhythm. ABDOMEN: No hepatosplenomegaly, normal bowel sounds, no guarding or rigidity. SPINE: No scoliosis or deformity SKIN: No rashes CENTRAL NERVOUS SYSTEM: No focal deficits, tone is normal in all 4 extremities. EXTREMITIES: There is peripheral edema. No clubbing, no cyanosis. Peripheral pulses are intact. - Labs CBC & Chem 7: 02/01/22 04:09 02/02/22 03:54 Assessment and Plan Plan: left lung empyema with secondary Chest pain with shortness of breath secondary to a large fluid collection displacing the heart and appears contiguous with superior pericardial recess. Status post left chest catheter placement on 01/22/2022. Removed on 01/27/2022. Follow up computed tomography scan of the chest shows improvement. Cultures positive for MRSA. Continued on vancomycin. Plan is for 2 more weeks of treatment. Currently still on IV antibiotics with IV vancomycin History of heroin use, last used 11/03/2021 Recently incarcerated secondary to above History of COVID-19 infection in November 2021 History of bacterial endocarditis with tricuspid valve repair in January 2020 at [facility], maintained on baby aspirin History of hepatitis C Mild transaminitis, ultrasound revealed evidence of cholecystitis without gallbladder wall thickening, liver within normal limits History of chronic tobacco dependence History of MRSA in the right hip History of hypertension History of acid reflux disease Peripheral edema Plan: Check electrolytes Continue diuretics clinically stable No signs of any sepsis No cardiac vegetations Continue Lasix and give her 20 mg twice a day and given Zaroxolyn 2.5 mg twice a day for the next 3 days to mobilize and facilitate diuresis.. Continue Aldactone Continued on vancomycin per ID services discharge planning is in progress, going to a F facility [place]. She is a local [place] resident.
[2022-02-04 13:05] LABS: African American GFR (CKD) >90 (>60 ml/min/1.73 sqM); Anion Gap 16 mmol/L; Blood Urea Nitrogen 11 mg/dL (7-17); Calcium 9.4 mg/dL (8.4-10.2); Carbon Dioxide 23 mmol/L (22-30); Chloride 99 mmol/L (98-107); Glucose 106 mg/dL (74-99); Non-African American GFR(CKD) 83 (>60 ml/min/1.73 sqM); Potassium 4.3 mmol/L (3.5-5.1); Sodium 138 mmol/L (137-145)
[2022-02-04 15:08] VITALS: PULSE 85; RESP 17; TEMP 97.9
[2022-02-04] MEDS ORDERED: FUROSEMIDE 40 MG TAB PO SCH (16:00)
--- NOTE | 2022-02-04 20:15 | P.DS ---
Providers Date of admission: 01/19/22 19:01 Expected date of discharge: 02/04/22 Attending physician: Saroj Pineda Consults: 01/19/22 19:00 Consult Physician Urgent Consulting Provider: Joni Villanueva Consult Reason/Comments: Empyema Do you want consulting provider notified?: Yes Consult Physician Urgent Consulting Provider: Linda Martines Consult Reason/Comments: Empyema Do you want consulting provider notified?: Yes 01/20/22 07:46 Consult Physician Routine Consulting Provider: Waqas Verde Consult Reason/Comments: Empyema, h/o endocarditis MVR Do you want consulting provider notified?: Already Contacted 01/20/22 09:18 Consult Physician Urgent Consulting Provider: Robert Fitzgerald Consult Reason/Comments: Pericardial effusion Do you want consulting provider notified?: Yes Primary care physician: Stated None Hospital Course: Note: Repeat discharge summary being dictated as 1 dictated one this morning could not be located. I was called about the same by the correctional case records supervisor. Presenting complaint: Cough Hospital course: I'm rounding for Dr. Saroj Pineda. This is a patient history of IVDA, hepatitis C, dermatitis, mitral valve replacement in 2019, and a prior history of MRSA right hip and fracture infection. Patient admitted with this large fluid collection displacing the heart underwent a left-sided chest catheter placement on January 22. Removed on January 27. Repeat computed tomography scan showed improvement. Pleural fluid daily completely resolved. Positive for MRSA. On IV vancomycin has a PICC line in left upper extremity. Patient suspected of underlying hepatitis C cirrhosis. 02/02/2022: Sitting up on the bench, Near the window feels better. Oral intake fair. Had a BM. Congested cough. Has had a BM. Case management is looking into placement. No fever no chills. Consultation made to GI because of history of hepatitis C/cirrhosis. Congested cough but unable to expectorate. 02/03/2022: On IV vancomycin. On diuretics. Feels a bit puffy. Extra dose of IV Lasix ordered. Seen by GI. Patient follow-up outpatient. Up to the bathroom. Ensure added. 02/04/2022: Patient has a lot of questions. Discussed at length. Explained why she is fluid retaining because of cirrhosis. Discharge medications adjusted. Discussed with correctional case records supervisor. Initially patient did not want to go to the place. Then finally agreed. Antibiotics per ID. Patient to follow with Dr. Sirisha Fitzgerald, Dr. Villanueva, Dr. Field. Fluid restriction to continue. Discussion and discharge planning more than 35 minutes On examination: VITAL SIGNS: 97.4, 82, 18, 109/75, 97% GENERAL APPEARANCE: comfortable.. HEENT: Normal external appearance of nose and ear. Oral cavity normal EYES: Pupils equal. Conjunctiva normal. NECK: JVD not raised. Mass not palpable. RESPIRATORY: Respiratory effort normal. Lungs clear to auscultation. CARDIOVASCULAR: First and second sounds normal. Slight edema. ABDOMEN: Soft. Liver and spleen not palpable. No tenderness. No mass palpable. PSYCHIATRY: Alert and oriented x3. Mood and affect normal. INVESTIGATIONS, reviewed in the clinical context: February 04: Potassium 4.3 creatinine 0.91 Iron 28 TIBC 434% saturated 6.36 ferritin 169 WBC 5.3 hemoglobin 10.9 platelets 202 potassium 4.1 creatinine 0.78 AST 46 ALT 43 albumin 2.7 C. diff: Negative Liver ultrasound: Gallstones. Heterogenesis appearance to the liver compatible with cirrhosis. CBD that dilated at 0.8 cm. HCV RNA PCR: Detected, hepatitis C genotype 3A log 6.4 quantitative: [id number] Assessment and plan: -Empyema in a patient with prior history of IV drug use, but fluid culture positive for MRSA. Also culture coming back positive for Bridget albicans. IV vancomycin. Diflucan. Outpatient Follow with ID and pulmonary. -Liver cirrhosis secondary to hepatitis C likely. Follow with GI outpatient.. -Fluid overload secondary to cirrhosis Aldactone, Lasix, fluid restriction -Acute versus chronic hepatitis C infection Outpatient follow-up with Dr. Sirisha Fitzgerald -Hypoalbuminemia secondary to cirrhosis -Normocytic microcytic underlying cirrhosis. An iron deficient anemia. IV Ferrlecit -Chronic nicotine dependence, cigarette smoker Nicotine patch Disposition: [place] [facility] Plan - Discharge Summary Discharge Rx Participant: Yes New Discharge Prescriptions: New diphenhydrAMINE [Benadryl] 25 mg PO TID PRN cap PRN Reason: Allergic Reaction Benzonatate [Tessalon Perles] 200 mg PO TID cap Spironolactone [Aldactone] 100 mg PO BID #1 tab Furosemide [Lasix] 40 mg PO BID@0900,1600 tab Pantoprazole [Protonix] 40 mg PO AC-BRKFST tab Vancomycin 1,250 mg IVPB Q16H each Nicotine 14Mg/24Hr Patch [Habitrol] 1 patch TRANSDERM DAILY patch Cholestyramine (with Sugar) [Questran Packet] 4 gm PO BID@1000,1800 packet Fluconazole [Diflucan] 200 mg PO DAILY #7 tab Continue Ferrous Sulfate [Iron (65 MG Elemental)] 325 mg PO HS Ensure 1 can PO DAILY Aspirin EC [Ecotrin Low Dose] 81 mg PO DAILY Multivit/Iron Sulf/Folic Acid [Multivitamin with Iron] 1 tab PO DAILY Albuterol Nebulized [Ventolin Nebulized] 2.5 mg INHALATION RT-BID Discontinued Omeprazole 20 mg PO DAILY hydroCHLOROthiazide [Hydrodiuril] 25 mg PO DAILY Metoprolol Tartrate [Lopressor] 12.5 mg PO BID Discharge Medication List Albuterol Nebulized [Ventolin Nebulized] 2.5 mg INHALATION RT-BID 01/19/22 [History] Aspirin EC [Ecotrin Low Dose] 81 mg PO DAILY 01/19/22 [History] Ensure 1 can PO DAILY 01/19/22 [History] Ferrous Sulfate [Iron (65 MG Elemental)] 325 mg PO HS 01/19/22 [History] Multivit/Iron Sulf/Folic Acid [Multivitamin with Iron] 1 tab PO DAILY 01/19/22 [History] Benzonatate [Tessalon Perles] 200 mg PO TID cap 01/29/22 [Rx] Pantoprazole [Protonix] 40 mg PO AC-BRKFST tab 01/29/22 [Rx] Vancomycin 1,250 mg IVPB Q16H each 01/29/22 [Rx] diphenhydrAMINE [Benadryl] 25 mg PO TID PRN cap 01/29/22 [Rx] Cholestyramine (with Sugar) [Questran Packet] 4 gm PO BID@1000,1800 packet 02/04/22 [Rx] Fluconazole [Diflucan] 200 mg PO DAILY #7 tab 02/04/22 [Rx] Furosemide [Lasix] 40 mg PO BID@0900,1600 tab 02/04/22 [Rx] Nicotine 14Mg/24Hr Patch [Habitrol] 1 patch TRANSDERM DAILY patch 02/04/22 [Rx] Spironolactone [Aldactone] 100 mg PO BID #1 tab 02/04/22 [Rx] Follow up Appointment(s)/Referral(s): Joni Villanueva MD [STAFF PHYSICIAN] - 2 Weeks Rosa Fitzgerald MD [STAFF PHYSICIAN] - 1 Week (Please call office for appointme nt.) None,Stated [Primary Care Provider] - 1-2 days Linda Martines MD [STAFF PHYSICIAN] - 2 Weeks Activity/Diet/Wound Care/Special Instructions: Per Dr. Martines: Vancomycin IV Pharmacy to dose for 2 weeks - starting dose: 1250mg q16 hours Strict fluid restriction 1500 mL a day Regular Diet Activity as tolerated Discharge Disposition: TRANSFER TO SNF/ECF
[2022-02-05] MEDS ORDERED: VANCOMYCIN TROUGH DUE 1 EACH MISC MISCELLANE ONE (07:00)
== END 2022-02-04 15:09 | DRG 871 ==
LOC: EC 11:21 → 5NMEDONC 19:01 → EEVIPCON 19:01 → 5NMEDONC 19:11 → 2SICU 01-20 09:58 → 4SSUR 01-23 01:22
PROVIDERS: ADMIT Family Medicine; ATTEND Family Medicine
PROC: 0W9B00Z Drainage of Left Pleural Cavity with Drainage Device, Open Approach (ICD-10-PCS; 2022-01-21)
PROC: 02HV33Z Insertion of Infusion Device into Superior Vena Cava, Percutaneous Approach (ICD-10-PCS; principal; 2022-01-23)
DX: A41.02 Sepsis due to Methicillin resistant Staphylococcus aureus (principal); J18.9 Pneumonia, unspecified organism; J86.9 Pyothorax without fistula; E87.20 Acidosis, unspecified; J90 Pleural effusion, not elsewhere classified; R18.8 Other ascites; K80.10 Calculus of gallbladder with chronic cholecystitis without obstruction; J98.11 Atelectasis; B37.89 Other sites of candidiasis; I27.20 Pulmonary hypertension, unspecified; K74.60 Unspecified cirrhosis of liver; I11.9 Hypertensive heart disease without heart failure; F11.11 Opioid abuse, in remission; B19.20 Unspecified viral hepatitis C without hepatic coma; D50.9 Iron deficiency anemia, unspecified; I07.1 Rheumatic tricuspid insufficiency; E88.09 Other disorders of plasma-protein metabolism, not elsewhere classified; F17.210 Nicotine dependence, cigarettes, uncomplicated; K21.9 Gastro-esophageal reflux disease without esophagitis; R79.89 Other specified abnormal findings of blood chemistry; N28.81 Hypertrophy of kidney; E87.70 Fluid overload, unspecified; R00.0 Tachycardia, unspecified; M79.89 Other specified soft tissue disorders; R74.8 Abnormal levels of other serum enzymes; B95.62 Methicillin resistant Staphylococcus aureus infection as the cause of diseases classified elsewhere; Z20.822 Contact with and (suspected) exposure to COVID-19; Z86.14 Personal history of Methicillin resistant Staphylococcus aureus infection; Z86.16 Personal history of COVID-19; Z95.3 Presence of xenogenic heart valve; Z28.310 Unvaccinated for COVID-19; Z86.79 Personal history of other diseases of the circulatory system; Z91.199 Patient's noncompliance with other medical treatment and regimen due to unspecified reason; Z79.899 Other long term (current) drug therapy; Z79.82 Long term (current) use of aspirin; Z88.8 Allergy status to other drugs, medicaments and biological substances
CPT/HCPCS: 32551; 36415; 36573; 71045; 71046; 71250; 71275; 74176; 76705; 80048; 80053; 80074; 80202; 81001; 82040; 82150; 82565; 82728; 82945; 83540; 83550; 83605; 83615; 83735; 83880; 84145; 84155; 84157; 84484; 85025; 85379; 85610; 86140; 87040; 87070; 87075; 87077; 87086; 87102; 87116; 87186; 87205; 87206; 87324; 87522; 87635; 87902; 88108; 88305; 89050; 93005; 93306; 93970; 94640; 96361; 96365; 96366; 96375; 99291